=== PATIENT | male | born 1950 | race Caucasian/White ===

== ENCOUNTER 2019-01-07 08:46 | Inpatient (IN) | payer MEDICARE, BC ==
--- NOTE | 2019-01-06 15:45 | Pre-op HX & Phy Repo 2 SIG ---
DATE OF ADMISSION: 01/07/2019 HISTORY OF PRESENT ILLNESS: The patient is a 68-year-old male in overall good health with a malfunctioning Quevedo continent ileostomy with incontinence and difficulty with intubation because of stricture of the stoma opening. The patient has a past history of ulcerative colitis. In 1989, he underwent total colectomy with creation of an ileoanal J-pouch. In 2013, he required conventional ileostomy because of a failed J-pouch. In November 2014, he underwent creation of a Quevedo continent ileostomy as well as resection of his failed J-pouch and abdominal-perineal proctectomy. All these operations were done elsewhere. On 04/12/2018 in [place], the patient underwent surgery to revise the valve and stoma of his Quevedo pouch because of difficulty with intubation, but he was not having any incontinence at that time. However, following this surgery within several weeks, he developed incontinence of stool and gas from the stoma. He has been treated with Cipro and Flagyl for pouchitis, which he has only occasionally, but the incontinence continues. He also notes that his stoma has become so small that he must wear a stent or the opening closes down and he cannot get his 30-Indonesian catheter in to evacuate stool from his pouch. He does not have any difficulty intubating once he negotiates the stomal orifice itself. The patient is scheduled to undergo pouch endoscopy and surgical revision to correct his incontinence and stoma stenosis. 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 PAST MEDICAL HISTORY: MEDICATIONS: None. ALLERGIES: Penicillin. OPERATIONS: In addition to the above, thyroidectomy in 1996. PHYSICAL EXAMINATION: The patient is 5 feet 9 inches and 159 pounds. [place] and will be examined upon arrival and dictated separately. IMPRESSION: 1. 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 2. History of ulcerative colitis. 3. Status post thyroidectomy. 4. Status post multiple abdominal operations. 4.1. Total colectomy with ileoanal J-pouch in 1989. 4.2. Ileostomy in 2013. 4.3. Quevedo continent intestinal reservoir, continent ileostomy, resection of failed J-pouch and abdominal-perineal proctectomy in November 2014. 4.4. Revision of Quevedo continent ileostomy valve, stoma, and access segment in [place] 04/12/2018. PLAN: I have had a full discussion with the patient about his condition. He will undergo insertion of a dual lumen PICC line, pouch endoscopy, bowel prep with intravenous hydration during his bowel prep, and continuous drainage of his Quevedo continent ileostomy pouch. I have had a full discussion with the patient regarding the surgical options including revision of his pouch, creation of a new valve and stoma with preservation of the pouch, but he is not likely to be a candidate for a new pouch as he has already undergone resection of a failed J-pouch. I will have another detailed discussion in person when the patient arrives. I have discussed the risks including bleeding, infection, injury to adjacent structures or organs, recurrent difficulties with the pouch or stoma, deep vein thrombosis despite prophylaxis etc. I will answer all his questions. Cedrick Juarez M.D. DR: LASHANDA JOB#: [id number] CC:
[~2019-01-07] VITALS: Ht 175.3 cm; Wt 71.7 kg
[~2019-01-07 08:46] MED LIST: Heparin1,000 units/500ml Premix(Conc:2 units/ml) ONE; Lidocaine 1% Plain 30 ml INJ ONE
[2019-01-07 09:30] VITALS: BP 136/78
--- NOTE | 2019-01-07 09:30 | NUR ---
NURSE NOTES: Received direct admit. pt a/a/o x4 ambulatory with no signs of distress or other issues at this time. RN will review orders and will carry on as indicated by . kristine light within reach, bed in lowest position. side rales up x2. I will f/u as needed.
[2019-01-07] MEDS ORDERED: Zolpidem 5mg tab ORAL PRN (09:45)
[2019-01-07 11:10] LABS: BASOPHILS % (AUTO) 0.8 % (0.0-2.0); EOSINOPHILS % (AUTO) 2.6 % (0.0-3.0); HEMATOCRIT 44.9 % (42.0-52.0); LYMPHOCYTES % (AUTO) 20.2 % (20.0-45.0); MEAN CORPUSCULAR VOLUME 90 FL (80-99); MONOCYTES % (AUTO) 8.6 % (1.0-10.0); NEUTROPHILS % (AUTO) 67.7 % (45.0-75.0); PLATELET COUNT 212 K/UL (150-450); RED CELL DISTRIBUTION WIDTH 11.2 % (11.6-14.8); WHITE BLOOD COUNT 6.9 K/UL (4.8-10.8)
[2019-01-07 11:32] LABS: ALANINE AMINOTRANSFERASE 24 U/L (12-78); ALBUMIN 3.6 G/DL (3.4-5.0); ALKALINE PHOSPHATASE 101 U/L (46-116); ANION GAP 5 mmol/L (5-15); ASPARTATE AMINO TRANSFERASE 16 U/L (15-37); BILIRUBIN,TOTAL 0.7 MG/DL (0.2-1.0); BLOOD UREA NITROGEN 12 mg/dL (7-18); CARBON DIOXIDE 30 MMOL/L (21-32); CHLORIDE 107 MMOL/L (98-107); POTASSIUM 4.3 MMOL/L (3.5-5.1); SODIUM 142 MMOL/L (136-145)
[2019-01-07 11:39] LABS: CALCIUM 9.6 MG/DL (8.5-10.1); CREATININE 1.1 MG/DL (0.55-1.30)
--- NOTE | 2019-01-07 11:45 | Pre-Procedure Note/Attestation ---
Pre-Procedure Note/Attestation Complete Prior to Procedure Planned Procedure: not applicable Procedure Narrative: Quevedo continent ileostomy pouch endoscopy Indications for Procedure Pre-Operative Diagnosis: malfunctioning Quevedo continent ileostomy with incontinence and stoma stricture Attestation I attest that I discussed the nature of the procedure; its benefits; risks and complications; and alternatives (and the risks and benefits of such alternatives ), prior to the procedure, with the patient (or the patient's legal renewals representative). I attest that, if there was a reasonable possibility of needing a blood transfusion, the patient (or the patient's legal renewals representative) was given the [facility] Services standardized written summary, pursuant to the Mehran Heidi Blood Safety Act ([place] Health and Safety Code # 1645, as amended). I attest that I re-evaluated the patient just prior to the surgery and that there has been no change in the patient's H&P, except as documented below: none Cedrick Juarez MD Jan 07, 2019 11:45
[2019-01-07 12:00] VITALS: BP 135/70
--- NOTE | 2019-01-07 12:00 | NUR ---
NURSE NOTES: pt is back from Endoscopy and PICC line placement. pt was able to tolerated procedure well with no signs of distress. ileo bag was placed with a Trevino cath Fr#[id number]. RN will review orders and carry on as indicated by . I will f/u as needed.
--- NOTE | 2019-01-07 12:11 | Brief Operative Note ---
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
[2019-01-07 12:14] LABS: APPEARANCE,URINE CLEAR; BILIRUBIN, URINE NEGATIVE (NEGATIVE); COLOR,URINE PALE YELLOW; GLUCOSE, URINE (UA) NEGATIVE (NEGATIVE); KETONES,URINE NEGATIVE (NEGATIVE); LEUKOCYTE ESTERASE ,URINE 1+ (NEGATIVE); NITRITE,URINE NEGATIVE (NEGATIVE); PH,URINE 6.5 (4.5-8.0); PROTEIN,URINE NEGATIVE (NEGATIVE); UROBILINOGEN,URINE NORMAL MG/DL (0.0-1.0)
--- NOTE | 2019-01-07 12:24 | Pre-Procedure Note/Attestation ---
Pre-Procedure Note/Attestation Complete Prior to Procedure Planned Procedure: not applicable Procedure Narrative: PICC Indications for Procedure Pre-Operative Diagnosis: needs IV access for TPN Attestation I attest that I discussed the nature of the procedure; its benefits; risks and complications; and alternatives (and the risks and benefits of such alternatives ), prior to the procedure, with the patient (or the patient's legal specialty sales representative). I attest that, if there was a reasonable possibility of needing a blood transfusion, the patient (or the patient's legal specialty sales representative) was given the [facility] Services standardized written summary, pursuant to the Mehran Aubrey Blood Safety Act ([place] Health and Safety Code # 1645, as amended). I attest that I re-evaluated the patient just prior to the surgery and that there has been no change in the patient's H&P, except as documented below: Moy Velez MD Jan 07, 2019 12:24
--- NOTE | 2019-01-07 12:24 | Brief Operative Note ---
Immediate Post Operative Note Operative Note Pre-op Diagnosis: needs IV access for TPN Procedure: PICC Post-op Diagnosis: same as pre-op Surgeon: Iris Watt Specimen: none Complications: none Fluids: none Implant(s) used?: No Moy Watt MD Jan 07, 2019 12:24
--- NOTE | 2019-01-07 12:31 | Diagnostic Imaging Report ---
Indications: Needs long-term IV access Technique: Ultrasound confirms patent compressible left basilic vein. Total sterile technique, including sterile probe cover and sterile gel, hat, mask, sterile gown, large sterile drape, and preparation with 2% chlorhexidine utilized. Local anesthesia with 1% lidocaine. Under real-time ultrasound guidance, puncture basilic vein using 21-gauge needle, documented and archived, passage 0.018 guidewire under direct fluoroscopy, which was used to determine appropriate catheter length, exchange for 4 [place] Island[place] peel-away sheath. 4 [place] Island[place] Bard dual-lumen power PICC cut to 42 cm. It was inserted through the peel-away sheath. Peel-away sheath and guidewire removed. Catheter fixed to the skin. Both catheter ports aspirated and flushed. Patient tolerated procedure well, without immediate complication. Digital radiograph documents satisfactory catheter tip position, at the cavoatrial junction. Total fluoroscopy time 12.5 seconds. Total dose area product 0.81233 mGym2 Total number of images: 1 Impression: Successful placement of left arm PICC under sonographic and fluoroscopic guidance, as described above.
[2019-01-07] MEDS: Neomycin Sulfate 500mg Tab ORAL SCH ×3 (12:37→21:28)
[2019-01-07] MEDS ORDERED: D5 1/2NS w/KCl 20mEq 1,000 ML IV SCH ×2 (13:00→18:00)
[2019-01-07] MEDS: D5 1/2NS w/KCl 20mEq 1,000 ML IV SCH ×2 (13:45→23:33)
--- NOTE | 2019-01-07 13:45 | Pre-op HX & Phy Repo 2 SIG ---
DATE OF ADMISSION: 01/07/2019 The [place] now [place]. Please see previously dictated history. PHYSICAL EXAMINATION: GENERAL: He is well-developed, well-nourished, 5 foot 9 inches, approximately 160 pounds. VITAL SIGNS: Within normal limits. HEENT: Within normal limits. LUNGS: Clear. HEART: Regular rhythm. BREASTS: Without masses. ABDOMEN: Soft and flat. There was a long midline scar from xiphoid to pubis. There was a stoma of the Quevedo continent ileostomy low in the right lower quadrant with stenosis and a skin-lined tract leading to mucosa approximately 2 cm below the skin level. GENITALIA:Testes and penis within normal limits. RECTAL: Status post proctectomy. EXTREMITIES: Without edema. Pulses 3+ femoral to pedal bilaterally. NEUROLOGIC: Physiologic. IMPRESSION: 1. 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 2. History of ulcerative colitis. 3. Status post thyroidectomy. 4. Status post multiple abdominal operations. 4.1. Total colectomy with ileoanal J-pouch in 1989. 4.2. Diverting ileostomy in 2013. 4.3. Resection of failed J-pouch and abdominal-perineal proctectomy and creation of Quevedo continent ileostomy, in November 2014. 4.4. Revision of Quevedo continent ileostomy valve, stoma, and access segment because of difficulty with intubation April 12, 2018. (All these operations were done elsewhere.) PLAN: I have had a full discussion with the patient regarding his condition and the need for surgical correction likely creation of a new valve and stoma with preservation of the existing pouch with possible relocation of the stoma to the left lower quadrant. All questions have been answered. He understands and agrees to proceed. Cedrick Juarez M.D. DR: JULIO/JOSE JOB#: [id number] CC: JUANITA
--- NOTE | 2019-01-07 14:32 | NUR ---
RADIOLOGY DEPT., CHEST X-RAY DONE.-P.DYE
--- NOTE | 2019-01-07 14:36 | General Progress Note ---
Progress Note Progress Note H&P dictated. 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 Plan: Revision of Quevedo pouch in AM Cderick Juarez MD Jan 07, 2019 14:36
--- NOTE | 2019-01-07 15:31 | Diagnostic Imaging Report ---
Indication: Cough Technique: One view of the chest Comparison: none Findings: Left arm PICC has its tip in the mid superior vena cava. Lungs and pleural spaces are clear. The heart size is normal Impression: No acute process
--- NOTE | 2019-01-07 15:38 | Anethesia Preoperative Eval ---
Anesthesia Pre-op PMH/ROS General Date of Evaluation: Jan 07, 2019 Time of Evaluation: 15:32 Anesthesiologist: Codie ASA Score: ASA 2 Mallampati Score Class I : Soft palate, uvula, fauces, pillars visible Class II: Soft palate, uvula, fauces visible Class III: Soft palate, base of uvula visible Class IV: Only hard plate visible Mallampati Classification: Class II Surgeon: Larry Diagnosis: Malfunctioning continent pouch Surgical Procedure: Ex laparotomy revision of continent pouch Anesthesia History: none Family History: no anesthesia problems Allergies: Coded Allergies: PENICILLINS (Verified Allergy, Intermediate, 01/07/19) Medications: see eMAR Patient NPO?: Yes NPO Date: Jan 08, 2019 Past Medical History Cardiovascular: Denies: HTN, CAD, [place], valve dz, arrhythmia, other Pulmonary: Denies: asthma, COPD, PRIMO, other Gastrointestinal/Genitourinary: Reports: GERD, other - h/o UC s/p total colectomy; Denies: CRI, ESRD Neurologic/Psychiatric: Reports: depression/anxiety; Denies: dementia, CVA, TIA, other Endocrine: Reports: hypothyroidism - s/p thyroid ectomy CA; Denies: DM, steroids, other HEENT: Denies: cataract (L), cataract (R), glaucoma, KALISPEL (L), KALISPEL (R), other Hematology/Immune: Reports: DVT - h/o PE postoperatively Musculoskeletal/Integumentary: Denies: OA, RA, DJD, DDD, edema, other PMH Narrative: as above PSxH Narrative: Multiple abdominal Sx see H&P Anesthesia Pre-op Phys. Exam Physician Exam Last Vital Signs Date Time Temp Pulse Resp B/P (MAP) Pulse Ox O2 Delivery O2 Flow Rate FiO2 01/07/19 12:00 98.3 75 18 135/70 (91) 98 01/07/19 10:18 Room Air Constitutional: NAD Neurologic: CN 2-12 intact Cardiovascular: RRR, no M/R/G Respiratory: CTA Gastrointestinal: S/NT/ND Airway Exam Mallampati Score: Class II MO: full Neck: flexible ROM: full Teeth: intact Dentures: no upper, no lower Anesthesia Pre-op A/P Labs Hematology Test 01/07/19 11:00 White Blood Count 6.9 K/UL (4.8-10.8) Red Blood Count 5.00 M/UL (4.70-6.10) Hemoglobin 15.0 G/DL (14.2-18.0) Hematocrit 44.9 % (42.0-52.0) Mean Corpuscular Volume 90 FL (80-99) Mean Corpuscular Hemoglobin 29.9 PG (27.0-31.0) Mean Corpuscular Hemoglobin Concent 33.3 G/DL (32.0-36.0) Red Cell Distribution Width 11.2 % (11.6-14.8) L Platelet Count 212 K/UL (150-450) Mean Platelet Volume 7.0 FL (6.5-10.1) Neutrophils (%) (Auto) 67.7 % (45.0-75.0) Lymphocytes (%) (Auto) 20.2 % (20.0-45.0) Monocytes (%) (Auto) 8.6 % (1.0-10.0) Eosinophils (%) (Auto) 2.6 % (0.0-3.0) Basophils (%) (Auto) 0.8 % (0.0-2.0) Coagulation Test 01/07/19 11:00 Prothrombin Time 10.2 SEC (9.30-11.50) Prothromb Time International Ratio 1.0 (0.9-1.1) Activated Partial Thromboplast Time 24 SEC (23-33) Chemistry Test 01/07/19 11:00 Sodium Level 142 MMOL/L (136-145) Potassium Level 4.3 MMOL/L (3.5-5.1) Chloride Level 107 MMOL/L (98-107) Carbon Dioxide Level 30 MMOL/L (21-32) Anion Gap 5 mmol/L (5-15) Blood Urea Nitrogen 12 mg/dL (7-18) Creatinine 1.1 MG/DL (0.55-1.30) Estimat Glomerular Filtration Rate > 60 mL/min (>60) Glucose Level 95 MG/DL (74-106) Calcium Level 9.6 MG/DL (8.5-10.1) Total Bilirubin 0.7 MG/DL (0.2-1.0) Aspartate Amino Transf (AST/SGOT) 16 U/L (15-37) Alanine Aminotransferase (ALT/SGPT) 24 U/L (12-78) Alkaline Phosphatase 101 U/L (46-116) Total Protein 7.3 G/DL (6.4-8.2) Albumin 3.6 G/DL (3.4-5.0) Globulin 3.7 g/dL Albumin/Globulin Ratio 1.0 (1.0-2.7) Risk Assessment & Plan Assessment: ASA 2 Plan: GA with ETT Status Change Before Surgery: No Pre-Antibiotics Drug: as scheduled Julius Mackay MD Jan 07, 2019 15:38
[2019-01-07 16:00] VITALS: BP 115/72
--- NOTE | 2019-01-07 18:00 | Procedure Note ---
DATE OF PROCEDURE: 01/07/2019 ENDOSCOPY PROCEDURE REPORT ENDOSCOPIST: Cedrick Juarez M.D. ANESTHESIA: None. SEDATION: None. PRE-ENDOSCOPY DIAGNOSES: 1. 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 2. History of ulcerative colitis. 3. Status post multiple abdominal operations. 3.1. Total colectomy with ileoanal J-pouch in 1989. 3.2. Ileostomy in 2013. 3.3. Quevedo continent ileostomy and resection of failed J-pouch and abdominal-perineal proctectomy November 2014. 3.4. Revision of Quevedo continent ileostomy valve stoma and access segment April 12, 2018 because of difficulty with intubation (all these [place] POST-ENDOSCOPY DIAGNOSES: 1. 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 2. History of ulcerative colitis. 3. Status post multiple abdominal operations. 3.1. Total colectomy with ileoanal J-pouch in 1989. 3.2. Ileostomy in 2013. 3.3. Quevedo continent ileostomy and resection of failed J-pouch and abdominal-perineal proctectomy November 2014. 3.4. Revision of Quevedo continent ileostomy valve stoma and access segment April 12, 2018 because of difficulty with intubation (all these operations were done [place]). ENDOSCOPY PERFORMED: Quevedo continent ileostomy pouch endoscopy. 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 DESCRIPTION OF PROCEDURE: The patient was positioned supine in the GI lab without any anesthesia or sedation given or required. The stoma is low in the right lower quadrant and there was a skin line tract down to the stoma orifice in the subcutaneous tissues approximately 2 cm below the skin orifice. A GIF-P140 endoscope was readily inserted and negotiated under vision through an angulated access segment into the pouch. The distance to the tip of the valve was approximately 12 cm, which in this patient should be 8 cm. The pouch is distensible and overall majority of the pouch looks very healthy. Retroflexed views revealed a valve that is partially slipped with some inflammatory reaction adjacent to the base of the valve on one side. Withdrawal views confirmed the above findings. After removing the endoscope, I was able to manipulate a 28-Portuguese Trevino catheter through the stoma into the pouch to evacuate the pouch and secured it with tape and gauze dressing and connected to a gravity drainage bag. The patient will be prepared for surgical revision of his malfunctioning Quevedo continent ileostomy. The patient tolerated the endoscopy well. Cedrick Juarez M.D. DR: YESY JOB#: [id number] CC: JUANITA
--- NOTE | 2019-01-07 19:26 | NUR ---
HAND-OFF: Report given to Jadiel MELO, pt in stable condition. total I&O's Ileostomy: 1075-40= 1035ml total oral intake: 1500ml Lunch: 100%, diner:100% = Clear liquid Diet.
[2019-01-07 20:00] VITALS: BP 116/78
--- NOTE | 2019-01-07 22:55 | NUR ---
NURSE NOTES: Received report from KAMERON Burgos. Patient has BASILIO PICC line running fluids asymptomatic and intact. Dressing is c/d/i. NPO at midnight sign on door. No c/o of SOB on room air. No c/o of pain or discomfort at this time. Ileostomy draining to gravity to bag brown-green liquid. Emptied bag 600cc of fluid. VSS and comfortable. Will continue to monitor.
[2019-01-08] VITALS (16 sets, daily range): BP systolic 96–123; BP diastolic 64–81
[2019-01-08 05:18] LABS: EOSINOPHILS % (AUTO) 2.9 % (0.0-3.0); HEMATOCRIT 40.9 % (42.0-52.0); HEMOGLOBIN 14.1 G/DL (14.2-18.0); LYMPHOCYTES % (AUTO) 13.8 % (20.0-45.0); MEAN CORPUSCULAR VOLUME 89 FL (80-99); MONOCYTES % (AUTO) 8.4 % (1.0-10.0); PLATELET COUNT 199 K/UL (150-450); RED BLOOD COUNT 4.59 M/UL (4.70-6.10); RED CELL DISTRIBUTION WIDTH 11.2 % (11.6-14.8); WHITE BLOOD COUNT 6.4 K/UL (4.8-10.8)
[2019-01-08] MEDS ORDERED: Heparin 5000 units/ml inj SUBQ SCH (05:30)
[2019-01-08 05:50] LABS: ALANINE AMINOTRANSFERASE 25 U/L (12-78); ALBUMIN 3.3 G/DL (3.4-5.0); ALKALINE PHOSPHATASE 88 U/L (46-116); ANION GAP 3 mmol/L (5-15); ASPARTATE AMINO TRANSFERASE 19 U/L (15-37); BILIRUBIN,TOTAL 0.7 MG/DL (0.2-1.0); BLOOD UREA NITROGEN 8 mg/dL (7-18); CARBON DIOXIDE 29 MMOL/L (21-32); CHLORIDE 108 MMOL/L (98-107); POTASSIUM 4.2 MMOL/L (3.5-5.1); SODIUM 140 MMOL/L (136-145)
[2019-01-08] MEDS ORDERED: NS Irrig 1000ml ONE (07:00)
[2019-01-08] MEDS ORDERED: Sterile Water Irrig 1000ml IRRIG ONE (07:00)
[2019-01-08] MEDS ORDERED: Lidocaine 1% MPF 10mg/ml 5ml ONE (07:14)
[2019-01-08] MEDS ORDERED: Propofol 200mg/20ml IV ONE (07:14)
[2019-01-08] MEDS ORDERED: fentaNYL 100 mcg/2 mL IV ONE (07:17)
[2019-01-08] MEDS ORDERED: Midazolam 2mg/2ml Inj ONE (07:17)
--- NOTE | 2019-01-08 07:17 | Pre-Procedure Note/Attestation ---
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 I attest that, if there was a reasonable possibility of needing a blood transfusion, the patient (or the patient's legal business representative) was given the [facility] Services standardized written summary, pursuant to the Mehran [place] Blood Safety Act ([place] Health and Safety Code # 1645, as amended). I attest that I re-evaluated the patient just prior to the surgery and that there has been no change in the patient's H&P, except as documented below: none Cedrick Juarez MD Jan 08, 2019 07:17
[2019-01-08] MEDS ORDERED: Bacitracin 50000 Units Vial ONE (07:21)
[2019-01-08] MEDS ORDERED: Succinylcholine 20mg/ml 10ml vial ONE (07:21)
[2019-01-08] MEDS ORDERED: Rocuronium Bromide 50mg/5ml Inj IV ONE (07:21)
--- NOTE | 2019-01-08 07:42 | NUR ---
HAND-OFF: Report given to OR nurse and left floor with transport to OR for procedure at 0715am. Patient running fluids and antibiotics to BASILIO PICC line. Patient in stable condition. Handoff report given to AM floor 3E nurse KAMERON Thacker.
--- NOTE | 2019-01-08 07:45 | NUR ---
NURSE NOTES: Pt off unit in OR. Will continue to monitor.
[2019-01-08] MEDS ORDERED: Sodium Chloride 10ml vial INJ ONE ×2 (08:24→08:36)
[2019-01-08] MEDS ORDERED: ePHEDrine 50mg/ml Inj ONE (08:24)
[2019-01-08] MEDS ORDERED: Acetaminophen (Non formulary) 100 ML IV SCH (08:30)
[2019-01-08] MEDS ORDERED: Morphine Sulfate 10mg/ml Inj ONE (08:36)
[2019-01-08] MEDS ORDERED: Glycopyrrolate 0.2mg/ml 1ml Vial ONE (10:17)
[2019-01-08] MEDS ORDERED: Ketorolac 30mg Inj ONE (10:17)
[2019-01-08] MEDS ORDERED: Neostigmine 1mg/ml 10ml Inj ONE (10:17)
[2019-01-08] MEDS ORDERED: LR 1000ml 1,000 ML IVLG SCH (10:37)
[2019-01-08] MEDS ORDERED: Hydromorphone 0.5mg/0.5ml inj IVP PRN (10:45)
[2019-01-08] MEDS ORDERED: DiphenhydrAMINE 50mg/ml Inj IVP PRN ×2 (10:45→11:30)
[2019-01-08] MEDS ORDERED: Ketorolac 30mg Inj IV PRN (10:45)
[2019-01-08] MEDS ORDERED: Meperidine 50mg/ml Inj(FOR RIGORS ONLY) IV PRN (10:45)
[2019-01-08] MEDS ORDERED: LORazepam 1mg tab SL PRN ×2 (11:00)
--- NOTE | 2019-01-08 11:10 | Brief Operative Note ---
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
--- NOTE | 2019-01-08 11:12 | Immediate Post-Op Evaluation ---
Immediate Post-Op Evalulation Immediate Post-Op Evalulation Procedure: Exploratory laparotomy,lysis of adhesions, revision of continent pouch Date of Evaluation: Jan 08, 2019 Time of Evaluation: 11:11 IV Fluids: 1600 Blood Products: Albumin 250 Estimated Blood Loss: 100 Urinary Output: 150 Blood Pressure Systolic: 118 Blood Pressure Diastolic: 76 Pulse Rate: 92 Respiratory Rate: 20 O2 Sat by Pulse Oximetry: 99 Temperature (Fahrenheit): 98.2 Pain Score (1-10): 1 Nausea: No Vomiting: No Complications none Patient Status: reacts, patent, extubated, none Hydration Status: adequate Julius Mackay MD Jan 08, 2019 11:12
[2019-01-08] MEDS ORDERED: PCA Education Pamphlet MISC SCH (11:30)
[2019-01-08] MEDS ORDERED: Naloxone 0.4mg/ml Inj IVP PRN (11:30)
[2019-01-08] MEDS ORDERED: Rate Change PCA 1 Each MISC PRN (11:30)
[2019-01-08] MEDS: PCA Morphine 1mg/ml 30 ML IV PRN ×2 (11:35→20:31)
--- NOTE | 2019-01-08 13:00 | NUR ---
NURSE NOTES: Pt came up to unit from PACU via hospital bed in stable condition. BASILIO PICC line intact/asymptomatic/patent w/ SURGICAL INSTRUMENT MAKER Morphine infusing. Pt A&Ox4; on 2L NC; and in no apparent distress. Surgical dressing C/D/I; ileo & F/C patent/draining well. Reviewed SURGICAL INSTRUMENT MAKER purpose and use w/pt; pt verbalized understanding. Will continue to monitor.
[2019-01-08] MEDS: D5 1/4NS w/KCl 20mEq 1,000 ML IV SCH ×2 (13:02→20:27)
[2019-01-08] MEDS: D5 1/2NS w/KCl 20mEq 1,000 ML IV SCH (16:25)
--- NOTE | 2019-01-08 16:30 | Operative Note - Dictated ---
DATE OF OPERATION: 01/08/2019 SURGEON: Cedrick Juarez M.D. PHOTOENGRAVING ETCHER APPRENTICE: Sriram Lee M.D. ANESTHESIOLOGIST: Julius Mackay M.D. TYPE OF ANESTHESIA: General endotracheal. PREOPERATIVE DIAGNOSES: 1. 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 2. History of ulcerative colitis. 3. Status post multiple abdominal operations. 3.1. Total colectomy with ileoanal J-pouch in 1989. 3.2. Diverting ileostomy 2013. 3.3. Quevedo continent intestinal reservoir continent ileostomy with resection of failed J-pouch and abdomino-perineal proctectomy November 2014. 3.4. Revision of Quevedo continent ileostomy valve stoma and access segment performed in [place] April 12, 2018. POSTOPERATIVE DIAGNOSES: 1. 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 2. History of ulcerative colitis. 3. Status post multiple abdominal operations. 3.1. Total colectomy with ileoanal J-pouch in 1989. 3.2. Diverting ileostomy 2013. 3.3. Quevedo continent intestinal reservoir continent ileostomy with resection of failed J-pouch and abdomino-perineal proctectomy November 2014. 3.4. Revision of Quevedo continent ileostomy valve stoma and access segment performed in [place] April 12, 2018. OPERATION PERFORMED: Laparotomy with revision of Quevedo continent ileostomy pouch valve and revision of stoma and access segment. DESCRIPTION OF PROCEDURE: The patient was taken to the operating room and under general anesthesia with sequential compression device stockings and Trevino catheter in place, he was prepped and draped in usual fashion. Previous midline incision was reopened from the umbilicus to the pubis. There were diffuse adhesions to the anterior abdominal wall and throughout the abdomen and into the pelvis. A 28-Comoran Trevino was placed through the stenotic stoma into the pouch. The actual mucosa of the stoma was approximately 2 cm below the skin with epithelial epidermis lined the tract. With the catheter in the pouch, adhesions to the bladder were taken down and the pouch elevated out of the pelvis protecting the bladder and ureters. The pouch was very large. The afferent bowel could not be readily identified. Dissection continued circumferentially around the access segment. The stoma was circumscribed with elliptical transversely oriented incision and the access segment and stoma brought through into the abdomen. Two entries into the collar segment were made both of which were closed in 2 layers with 2-0 and 3-0 Vicryl. Material was in the distended collar, looked cloudy and not enteric. A pouch enterotomy was created along the previous anterior pouch suture line. The nipple valve was readily reformed measuring at least 6 centimeters well formed circumferentially. A row of claudia using the linear stapler 60 green cartridge was placed away from the mesentery. The catheter went in and out readily without limitation. There was marked inflammation adjacent to the valve and multiple what appeared to be Ethibond sutures all of which were removed. The orifice into the collar segment was stenotic it was dilated with a 28-Comoran Trevino catheter and collar decompressed. Dissection of the access segment continued freeing it of scar tissue to create enough length. The scarred skin line tract was excised and given as specimen. Now, the new access segment could reach the skin without tension and it was well perfused. The pouch enterotomy was closed with continuous locking 2-0 chromic followed by imbricating 3-0 silk sutures. The access segment was brought through the abdominal wall. There was no redundancy to excise. The stoma was primarily matured with continuous 2-0 chromic locking sutures starting at 3 and 9 o'clock positions. A very satisfactory stoma was obtained. A 28-Comoran Trevino catheter was placed into the stoma and well into the pouch and sutured to the skin with two sutures of 2-0 silk. It was flushed and connected to a gravity drainage bag. There was too much scarring in the upper abdomen to try and do a catheter gastrostomy. I could not do a pressure test of the pouch because the afferent bowel was encased with scar, but there was no obstruction. Through a separate stab wound in the left lower quadrant, a quarter-inch [place] drain was placed into the pelvis and up near the access segment and sutured to the skin with a 3-0 silk suture. The midline incision was carefully inspected. The abdomen and pelvis carefully inspected and irrigated and hemostasis secured with cautery. The midline incision was closed with continuous 0 looped PDS followed by additional antibiotic irrigation and the skin closed with claudia. Dry sterile dressings applied. Final sponge and needle counts were correct. The patient tolerated the procedure well, left the operating room in stable condition. Cedrick Juarez M.D. DR: Jeff JOB#: [id number] CC:
[2019-01-08] MEDS: PCA shift volume MISC SCH (19:18)
--- NOTE | 2019-01-08 19:25 | NUR ---
HAND-OFF: Report given to KAMERON Hogan.
--- NOTE | 2019-01-08 19:30 | NUR ---
NURSE NOTES: Received report from KAMERON Thacker. Patient is new post op patient for BCIR revision. Ileostomy stoma is bright red and asymptomatic. Dressing is clean, dry and intact. Ileostomy is draining a small amount of serosanguineous fluid. Trevino is draining clear yellow urine to drainage bag. Left upper arm PICC line is asymptomatic. VSS no c/o SOB on 2L NS. BUSINESS SERVICES CLERK pump with morphine set up at bedside. Call light within reach.
[2019-01-08] MEDS: Dyna-Hex 2% Top Sol 2oz TOPIC SCH (20:26)
[2019-01-09] VITALS: BP 110/68
[2019-01-09 04:00] VITALS: BP 114/69
[2019-01-09] MEDS: D5 1/4NS w/KCl 20mEq 1,000 ML IV SCH ×3 (04:50→20:09)
[2019-01-09 06:33] LABS: BASOPHILS % (AUTO) 0.4 % (0.0-2.0); EOSINOPHILS % (AUTO) 2.6 % (0.0-3.0); HEMOGLOBIN 13.4 G/DL (14.2-18.0); LYMPHOCYTES % (AUTO) 6.6 % (20.0-45.0); MEAN CORPUSCULAR VOLUME 91 FL (80-99); MONOCYTES % (AUTO) 7.9 % (1.0-10.0); NEUTROPHILS % (AUTO) 82.5 % (45.0-75.0); PLATELET COUNT 165 K/UL (150-450); RED BLOOD COUNT 4.41 M/UL (4.70-6.10); RED CELL DISTRIBUTION WIDTH 11.1 % (11.6-14.8); WHITE BLOOD COUNT 9.3 K/UL (4.8-10.8)
[2019-01-09] MEDS: PCA shift volume MISC SCH ×2 (07:11→19:18)
--- NOTE | 2019-01-09 07:12 | NUR ---
HAND-OFF: Report given to KAMERON Thacker. Patient in stable condition.
[2019-01-09 07:13] LABS: ALANINE AMINOTRANSFERASE 18 U/L (12-78); ALBUMIN 2.8 G/DL (3.4-5.0); ALBUMIN/GLOBULIN RATIO 0.9 (1.0-2.7); ALKALINE PHOSPHATASE 74 U/L (46-116); ANION GAP 7 mmol/L (5-15); ASPARTATE AMINO TRANSFERASE 13 U/L (15-37); BILIRUBIN,TOTAL 0.8 MG/DL (0.2-1.0); BLOOD UREA NITROGEN 8 mg/dL (7-18); CALCIUM 8.7 MG/DL (8.5-10.1); CARBON DIOXIDE 27 MMOL/L (21-32); CHLORIDE 106 MMOL/L (98-107); CREATININE 1.1 MG/DL (0.55-1.30); POTASSIUM 4.5 MMOL/L (3.5-5.1); SODIUM 140 MMOL/L (136-145)
--- NOTE | 2019-01-09 07:30 | NUR ---
NURSE NOTES: Pt lying in bed w/bed in lowest position and call light/DIANETICIST button within reach. Pt A&Ox4, VSS, and in no apparent distress at this time. BASILIO PICC line intact/asymptomatic w/IVF running; surgical dressing C/D/I; and F/C & ileo patent/draining. Pt has no complaints or concerns at this time. Will continue to monitor.
[2019-01-09 08:00] VITALS: BP 113/70
--- NOTE | 2019-01-09 08:24 | 48 Hour Post Anesthesia Eval ---
Post Anesthesia Evaluation Procedure: Exploratory laparotomy,lysis of adhesions, revision of continent pouch Date of Evaluation: Jan 09, 2019 Time of Evaluation: 08:23 Blood Pressure Systolic: 118 0: 72 Pulse Rate: 78 Respiratory Rate: 20 Temperature (Fahrenheit): 97.8 O2 Sat by Pulse Oximetry: 98 Airway: patent Nausea: No Vomiting: No Pain Intensity: 3 Hydration Status: adequate Cardiopulmonary Status: stable Mental Status/LOC: patient returned to baseline Follow-up Care/Observations: n/a Post-Anesthesia Complications: none Follow-up care needed: N/A Julius Mackay MD Jan 09, 2019 08:24
[2019-01-09] MEDS: PCA Morphine 1mg/ml 30 ML IV PRN (08:26)
[2019-01-09] MEDS ORDERED: Rate Change PCA 1 Each MISC PRN (08:45)
--- NOTE | 2019-01-09 08:45 | General Progress Note ---
Progress Note Progress Note AVSS Comfortable with MS OPERATIONS WELDER. Chest clear Cor reg rhythm Abdomen soft, mild distention, incision clean, stoma pink, john with serosang mod amount drainage overnight 12 hours: urine 750 BCIR ileo small amount serosang WBC 9300 Hgb 13.4 BUN 8 Cr 1.1 Albumin 2.8 (low pre-op 3.3) Imp: Ileus Pre-admission malnutrition Plan: npo x po meds and occ. ice chips TPN Ambulate with assistance BID continue Trevino - extensive adhesions of Quevedo pouch to bladder Cedrick Juarez MD Jan 09, 2019 08:45
[2019-01-09] MEDS ORDERED: Naloxone 0.4mg/ml Inj IVP PRN (09:00)
[2019-01-09] MEDS ORDERED: PCA Morphine 1mg/ml 30 ML IV PRN (09:00)
[2019-01-09] MEDS ORDERED: DiphenhydrAMINE 50mg/ml Inj IVP PRN (09:00)
--- NOTE | 2019-01-09 09:25 | NUR ---
RD ASSESSMENT & RECOMMENDATIONS SEE CARE ACTIVITY FOR COMPLETE ASSESSMENT DAILY ESTIMATED NEEDS: Needs based on Surgery/ 72.5kg 25-30 kcals/kg 4326-2567 total kcals 1-2 g protein/kg 72-145 g total protein 25-30 mL/kg 9071-2265 total fluid mLs NUTRITION DIAGNOSIS: Altered GI function R/T h/o UC, admitted w/ malfunctioning BCIR as evidenced by s/p laparotomy with revision of Quevedo continent ileostomy pouch valve and revision of stoma and access segment, NPO, to start TPN. CURRENT DIET:NPO PO DIET RECOMMENDATIONS: Diet per MD PARENTERAL NUTRITION RECOMMENDATIONS: D/AA Rate: 74 IL Rate: 9 Total Rate: 83 Volume: 1992 % Dextrose: 18 % AA: 5.3 Energy (kcals/kg): 1895 Protein (g/kg protein): 94 Nonprotein KCALS: 1519 GIR (mg CHO/kg/min): 3.05 % Fat KCALS: 23 NCP: N Ratio: 101 TPN Comment: * D18% AA 5.3% @ 74ml/hr + IL20% @ 9ml/hr -> total of 83ml/hr, all 3:1 * Start rate per MD * TPN will provide 100% est kcal/prot needs (26kcal/1.3g prot) ADDITIONAL RECOMMENDATIONS: * Standing weight for accurate CBW * Monitor lytes, BGs, and LFTs closely on TPN * Diet per
--- NOTE | 2019-01-09 10:00 | NUR ---
NURSE NOTES: Helped patient ambulate around unit twice and helped wash up; linens changed by DAY CARE TEACHER. Pt tolerated walk well. Will continue to monitor.
[2019-01-09 11:59] VITALS: BP 107/69
[2019-01-09 16:00] VITALS: BP 109/71
[2019-01-09] MEDS ORDERED: NS 55ml IV ONE (16:54)
[2019-01-09] MEDS ORDERED: NS Irrig 1000ml ONE (16:54)
[2019-01-09] MEDS ORDERED: Tubing IV Secondary IV ONE (16:54)
[2019-01-09] MEDS ORDERED: D5 1/2NS 1000ml IV ONE (16:54)
--- NOTE | 2019-01-09 18:15 | NUR ---
NURSE NOTES: Ambulated w/pt three times around unit w/o incident. Pt feeling a little nauseated; administered Zofran 4 mg IVP. Will continue to monitor.
[2019-01-09] MEDS ORDERED: LOTEMAX SM5 GM OP (18:42)
[2019-01-09] MEDS ORDERED: COMBIGAN EYE DRO5 ML OP (18:42)
--- NOTE | 2019-01-09 19:29 | NUR ---
HAND-OFF: Report given to KAMERON Farias.
--- NOTE | 2019-01-09 19:30 | NUR ---
NURSE NOTES: Received report & pt from KAMERON Thacker. Pt lying in bed, a&ox4, in room air. No s/s of acute distress & no c/o pain at this time. Ileo & izquierdo cath intact & draining to gravity. Surgical dressing C/D/I. PICC line intact with IVF running as ordered. CLIENT SUPPORT ANALYST setting checked. Bed in lowest position, call & CLIENT SUPPORT ANALYST pump within reach. Will continue to monitor.
[2019-01-09 20:00] VITALS: BP 112/65
[2019-01-09] MEDS ORDERED: Dextrose 10% 1,000 ML IV PRN (20:00)
[2019-01-09] MEDS: TPN IV SCH (20:07)
[2019-01-09] MEDS: FAT EMULSION 20% IV SCH (20:07)
[2019-01-09] MEDS: Dyna-Hex 2% Top Sol 2oz TOPIC SCH (20:09)
[2019-01-09] MEDS ORDERED: [UNRECOGNIZED DRUG - OTHER] OPHTHALM SCH ×2 (21:00)
[2019-01-09] MEDS ORDERED: Fat Emulsion Iv 20% 250 ML IV SCH (21:00)
[2019-01-09] MEDS: COMBIGAN OPHTHALM SCH (21:30)
[2019-01-10] VITALS (8 sets, daily range): BP systolic 109–122; BP diastolic 64–77
[2019-01-10] MEDS: NovoLOG Insulin Flexpen SUBQ SCH ×4 (00:02→18:22)
[2019-01-10 05:33] LABS: BASOPHILS % (AUTO) 0.5 % (0.0-2.0); HEMATOCRIT 35.9 % (42.0-52.0); HEMOGLOBIN 12.1 G/DL (14.2-18.0); LYMPHOCYTES % (AUTO) 6.4 % (20.0-45.0); MEAN CORPUSCULAR VOLUME 90 FL (80-99); MONOCYTES % (AUTO) 8.4 % (1.0-10.0); NEUTROPHILS % (AUTO) 81.7 % (45.0-75.0); PLATELET COUNT 150 K/UL (150-450); RED CELL DISTRIBUTION WIDTH 11.1 % (11.6-14.8); WHITE BLOOD COUNT 10.3 K/UL (4.8-10.8)
[2019-01-10 05:52] LABS: ALANINE AMINOTRANSFERASE 13 U/L (12-78); ALBUMIN 2.3 G/DL (3.4-5.0); ALBUMIN/GLOBULIN RATIO 0.7 (1.0-2.7); ALKALINE PHOSPHATASE 68 U/L (46-116); ANION GAP 4 mmol/L (5-15); ASPARTATE AMINO TRANSFERASE 8 U/L (15-37); BILIRUBIN,TOTAL 0.5 MG/DL (0.2-1.0); BLOOD UREA NITROGEN 7 mg/dL (7-18); CALCIUM 8.5 MG/DL (8.5-10.1); CARBON DIOXIDE 26 MMOL/L (21-32); CHLORIDE 108 MMOL/L (98-107); CREATININE 1.1 MG/DL (0.55-1.30); PHOSPHORUS 1.6 MG/DL (2.5-4.9); POTASSIUM 4.5 MMOL/L (3.5-5.1); SODIUM 138 MMOL/L (136-145)
[2019-01-10] MEDS: PCA shift volume MISC SCH ×2 (07:00→19:00)
--- NOTE | 2019-01-10 07:18 | NUR ---
NURSE NOTES: Called & left msg to Dr. Juarez re: pt's Mg 1.5 & Phosphorus 1.6; Will endorse to AM shift.
--- NOTE | 2019-01-10 07:30 | NUR ---
HAND-OFF: Report given to KAMERON Cordoba. Pt in stable condition. Endorsed to AM shift re: Mg & Phosphorus level.
--- NOTE | 2019-01-10 07:45 | NUR ---
NURSE NOTES: Received report from Dinora MELO. Patient is awake and oriented, no acute distress noted, etCO2 monitoring in place per SUPERVISOR TWISTING DEPARTMENT protocol. SUPERVISOR TWISTING DEPARTMENT settings checked and verified against order. Ileo and izquierdo to gravity drainage. IVF and TPN running per order. Abdominal dressing clean, dry. Patient updated on plan of care for the day. Side rails upx2, bed low and locked, call light in reach. Will continue to monitor.
[2019-01-10] MEDS: Magnesium Sulfate 1gm/100ml IVPB SCH ×4 (08:24→11:35)
[2019-01-10] MEDS: [UNRECOGNIZED DRUG - OTHER] OPHTHALM SCH (09:00)
[2019-01-10] MEDS ORDERED: Rate Change PCA 1 Each MISC PRN (10:45)
--- NOTE | 2019-01-10 10:53 | General Progress Note ---
Progress Note Progress Note AVSS Ambulated in hallways Abdomen soft, mildly distended, incision clean, stoma pink. [place] - scant serosang Urine 2875 BCIR ileo neg but now with enteric fluid in tubing WBC 10,300 Hgb 12.1 BUN 7 Cr 1.1 Phos 1.6 Mg 1.5 Albumin 2.3 Imp. Ileus Plan: continue npo, TPN, Trevino Mg and P infusions d/c continuous infusion of STORE GROCERY MERCHANDISER Cedrick Juarez MD Jan 10, 2019 10:52
[2019-01-10] MEDS ORDERED: Naloxone 0.4mg/ml Inj IVP PRN (11:00)
[2019-01-10] MEDS ORDERED: DiphenhydrAMINE 50mg/ml Inj IVP PRN (11:00)
[2019-01-10] MEDS ORDERED: PCA Morphine 1mg/ml 30 ML IV PRN ×2 (11:00)
--- NOTE | 2019-01-10 11:01 | NUR ---
NURSE NOTES: Discontinued continuous rate on JUNIOR ENGINEER. Settings now bolus dose only 1mg bolus/6min lock out/ 26mg per 4 hr max per MD order.
[2019-01-10] MEDS ORDERED: Potassium Phosphate 30 MM in NS 275ml IV ONE ×4 (12:30)
--- NOTE | 2019-01-10 18:57 | NUR ---
NURSE NOTES: Total ileo output: -30mL Total urine output: 1650mL Patient ambulated once during my shift, had 2 episodes of nausea relieved with Zofran. No emesis.
--- NOTE | 2019-01-10 19:25 | NUR ---
NURSE NOTES: Report taken from KAMERON Cordoba. Patient is awake and in bed, A&Ox4. No signs of distress on room air. Minor complaints of pain primarily with movement, 06/02. WOOD HEEL FLAP INSERTER setting 03/31/25, retaught use of pump for pain. Surgical site c/d/i, continue to monitor and assess. Skin intact. BASILIO PICC c/d/i both ports patent. Running TPN @ 83mls/hr and D1/4NS+20KCl @ 40mls/hr. Trevino c/d/i and patent, draining yellow urine. Ileo c/d draining to gravity, green/brown fluid. Bed in lowest position, call light within reach.
--- NOTE | 2019-01-10 19:36 | NUR ---
HAND-OFF: Report given to Jesse MELO.
[2019-01-10] MEDS: D5 1/4NS w/KCl 20mEq 1,000 ML IV SCH (20:24)
[2019-01-10] MEDS: Dyna-Hex 2% Top Sol 2oz TOPIC SCH (20:24)
[2019-01-10] MEDS: FAT EMULSION 20% IV SCH (20:25)
[2019-01-10] MEDS: TPN IV SCH (20:25)
[2019-01-10] MEDS: COMBIGAN OPHTHALM SCH (20:26)
--- NOTE | 2019-01-10 22:13 | NUR ---
NURSE NOTES: Patient ambulated unit x3. No pain with ambulation.
[2019-01-11] VITALS (7 sets, daily range): BP systolic 112–131; BP diastolic 69–85
[2019-01-11] MEDS: NovoLOG Insulin Flexpen SUBQ SCH ×5 (00:10→23:52)
[2019-01-11 05:47] LABS: IRON 12 ug/dL (50-175); TOTAL IRON BINDING CAPACITY 142 ug/dL (250-450)
[2019-01-11 05:49] LABS: ALANINE AMINOTRANSFERASE 13 U/L (12-78); ALBUMIN 2.2 G/DL (3.4-5.0); ALBUMIN/GLOBULIN RATIO 0.6 (1.0-2.7); ALKALINE PHOSPHATASE 66 U/L (46-116); ANION GAP 6 mmol/L (5-15); ASPARTATE AMINO TRANSFERASE 6 U/L (15-37); BILIRUBIN,TOTAL 0.3 MG/DL (0.2-1.0); BLOOD UREA NITROGEN 9 mg/dL (7-18); CALCIUM 8.5 MG/DL (8.5-10.1); CARBON DIOXIDE 27 MMOL/L (21-32); CHLORIDE 109 MMOL/L (98-107); CREATININE 0.9 MG/DL (0.55-1.30); PHOSPHORUS 2.9 MG/DL (2.5-4.9); POTASSIUM 4.1 MMOL/L (3.5-5.1); SODIUM 142 MMOL/L (136-145)
[2019-01-11 06:00] LABS: % IRON SATURATION 8 % (15-50)
[2019-01-11 06:05] LABS: BASOPHILS % (AUTO) 0.4 % (0.0-2.0); EOSINOPHILS % (AUTO) 4.5 % (0.0-3.0); HEMATOCRIT 33.6 % (42.0-52.0); HEMOGLOBIN 11.6 G/DL (14.2-18.0); MEAN CORPUSCULAR VOLUME 89 FL (80-99); MONOCYTES % (AUTO) 10.7 % (1.0-10.0); NEUTROPHILS % (AUTO) 76.4 % (45.0-75.0); PLATELET COUNT 146 K/UL (150-450); RED BLOOD COUNT 3.76 M/UL (4.70-6.10); RED CELL DISTRIBUTION WIDTH 11.2 % (11.6-14.8); WHITE BLOOD COUNT 10.4 K/UL (4.8-10.8)
--- NOTE | 2019-01-11 06:36 | NUR ---
NURSE NOTES: Patient experienced some minor pain and nausea through the night. His output became more thick near 0300. Added an extra 10cc to both 0300 and 0600 flushes due to increased fluid thickness. Will endorse to MD to get medication to help. Outputs for the night stated below Ileo: 175cc-100cc(flush)= 75cc Urine output: 925
[2019-01-11] MEDS: PCA shift volume MISC SCH ×2 (07:16→19:00)
--- NOTE | 2019-01-11 07:35 | NUR ---
HAND-OFF: Report given to KAMERON Mccall. Patient is awake and in bed, stable.
--- NOTE | 2019-01-11 07:40 | NUR ---
NURSE NOTES: Patient lying in bed awake. Complain of pain 3/10 on surgical site and on FREELANCE DIRECTOR for pain management. Will continue to monitor. Surgical dressing intact and dry. PICC line dressing intact and dry. TPN and IV fluid on going as ordered. Ileostomy catheter and Trevino catheter patent and draining well. Bed lowest position. Call light within reach. Will continue to monitor.
[2019-01-11] MEDS: [UNRECOGNIZED DRUG - OTHER] OPHTHALM SCH (08:57)
[2019-01-11] MEDS ORDERED: Naloxone 0.4mg/ml Inj IVP PRN (09:54)
[2019-01-11] MEDS ORDERED: Rate Change PCA 1 Each MISC PRN (10:00)
--- NOTE | 2019-01-11 10:06 | General Progress Note ---
Progress Note Progress Note AVSS Ambulates in hallways. Pain is decreasing Abdomen soft, healing nicely Urine 2575 BCIR ileo 45cc enteric WBC 10,400 Hgb down 11.6 Platelets down 146,000 BUN 9 Cr 0.9 P and Mg okay Imp. Ileus Pre-admission malnutrition Plan; TPN, npo, continue Trevino Venofer infusions; B12 x 1 Cedrick Juarez MD Jan 11, 2019 10:06
[2019-01-11] MEDS ORDERED: PCA Morphine 1mg/ml 30 ML IV PRN (11:00)
[2019-01-11] MEDS ORDERED: Vitamin B12 1000mcg/ml Inj IM SCH (11:30)
--- NOTE | 2019-01-11 12:30 | NUR ---
NURSE NOTES: Patient ambulated hallway with assist. No complain of dizziness or distress. Patient tolerated activity well. Will continue to monitor.
--- NOTE | 2019-01-11 13:30 | Cardiology Report ---
APPROVED REPORT EKG Measurement Heart [id number] IN [id number] [id number] Normal sinus rhythm Normal ECG
--- NOTE | 2019-01-11 19:30 | NUR ---
HAND-OFF: Report given to Jesse MELO. Patient in stable condition.
[2019-01-11] MEDS: Dyna-Hex 2% Top Sol 2oz TOPIC SCH (20:00)
[2019-01-11] MEDS: TPN IV SCH (20:07)
[2019-01-11] MEDS: FAT EMULSION 20% IV SCH (20:07)
[2019-01-11] MEDS: D5 1/4NS w/KCl 20mEq 1,000 ML IV SCH (20:10)
[2019-01-11] MEDS: COMBIGAN OPHTHALM SCH (20:25)
[2019-01-11] MEDS: Iron Sucrose 100 MG in NS 55 ML IV SCH (20:29)
--- NOTE | 2019-01-11 22:01 | NUR ---
NURSE NOTES: Report taken from KAMERON Mccall. Patient is in bed asleep, arousable by name. A&Ox4. No signs of distress on room air. Complains of minor pain with movement and cough, 07/03. Instructed used of UNDERWATER WELDER pump. UNDERWATER WELDER rate 03/31/25. Surgical site c/d/i, change PRN. BASILIO PICC c/d/i and both ports patent. TPN running at 83mls/hr and D51/4NS+20KCl at 40mls/hr. Skin intact. Patient still NPO. Trevino draining to gravity, ashwin urine. Ileo pantent and draining to gravity, green fluid, Q3 flush. Bed in lowest position, call light within reach.
[2019-01-12] VITALS (9 sets, daily range): BP systolic 100–148; BP diastolic 67–85
[2019-01-12 05:16] LABS: BASOPHILS % (AUTO) 0.7 % (0.0-2.0); EOSINOPHILS % (AUTO) 6.9 % (0.0-3.0); HEMATOCRIT 34.8 % (42.0-52.0); HEMOGLOBIN 11.9 G/DL (14.2-18.0); LYMPHOCYTES % (AUTO) 9.9 % (20.0-45.0); MEAN CORPUSCULAR VOLUME 89 FL (80-99); MONOCYTES % (AUTO) 9.9 % (1.0-10.0); NEUTROPHILS % (AUTO) 72.7 % (45.0-75.0); PLATELET COUNT 186 K/UL (150-450)
[2019-01-12] MEDS: NovoLOG Insulin Flexpen SUBQ SCH ×3 (05:21→18:00)
[2019-01-12 05:31] LABS: ALANINE AMINOTRANSFERASE 14 U/L (12-78); ALBUMIN 2.2 G/DL (3.4-5.0); ALBUMIN/GLOBULIN RATIO 0.6 (1.0-2.7); ALKALINE PHOSPHATASE 62 U/L (46-116); ANION GAP 6 mmol/L (5-15); ASPARTATE AMINO TRANSFERASE 8 U/L (15-37); BILIRUBIN,TOTAL 0.3 MG/DL (0.2-1.0); BLOOD UREA NITROGEN 10 mg/dL (7-18); CALCIUM 8.7 MG/DL (8.5-10.1); CARBON DIOXIDE 27 MMOL/L (21-32); CHLORIDE 109 MMOL/L (98-107); CREATININE 0.9 MG/DL (0.55-1.30); POTASSIUM 4.3 MMOL/L (3.5-5.1); SODIUM 142 MMOL/L (136-145)
--- NOTE | 2019-01-12 06:27 | NUR ---
NURSE NOTES: Patient had a good night. Slept through the night. Ileo output was fluid and green. Urine output light yellow. Outputs as stated below. Pain 3/10, dressing intact. Ileo: 150cc-80cc(flush): 70cc UO: 1525cc
[2019-01-12] MEDS: PCA shift volume MISC SCH ×2 (07:23→19:00)
--- NOTE | 2019-01-12 07:24 | NUR ---
HAND-OFF: Report given to KAMERON Cordoba. patient is awake and VS stable.
--- NOTE | 2019-01-12 07:58 | NUR ---
NURSE NOTES: Received report from Jesse MELO. Patient is awake and oriented, no acute distress noted, reporting no pain at this time. Ileo and izquierdo to gravity drainage. IVF and TPN running per order through BASILIO PICC. P D DRIVER settings checked and verified against order. Updated on plan of care for the day. Side rails upx2, bed low and locked, call light in reach. Will continue to monitor.
[2019-01-12] MEDS ORDERED: NS Irrig 1000ml ONE (08:53)
[2019-01-12] MEDS ORDERED: Tubing IV Secondary IV ONE (08:53)
[2019-01-12] MEDS ORDERED: NS 275ml ONE (08:53)
[2019-01-12] MEDS ORDERED: Naloxone 0.4mg/ml Inj IVP PRN (09:18)
[2019-01-12] MEDS ORDERED: Rate Change PCA 1 Each MISC PRN (09:30)
[2019-01-12] MEDS ORDERED: PCA Morphine 1mg/ml 30 ML IV PRN (09:30)
--- NOTE | 2019-01-12 09:32 | General Progress Note ---
Progress Note Progress Note AVSS Doing well overall. Abdomen soft, mildly distended, healing nicely, stoma with slight medial retraction 3mm [place] - nil Urine 3045 BCIR ileo 190 Hg 11.9 stable labs all satisf Imp. slowly resolving ileus Plan: continue TPN, npo anticipate remove urinary izquierdo in AM if stable overnight Cedrick Juarez MD Jan 12, 2019 09:32
[2019-01-12] MEDS: [UNRECOGNIZED DRUG - OTHER] OPHTHALM SCH (09:33)
--- NOTE | 2019-01-12 18:00 | NUR ---
NURSE NOTES: Both lumens on PICC line occluded. Flushing attempted by two nurses. Dr. Juarez called for order for cathflo. Awaiting callback from MD with further orders.
--- NOTE | 2019-01-12 18:00 | NUR ---
NURSE NOTES: Total ileo output: +245mL Total urine output: 2200mL Ambulated twice in hallway, pain well managed.
--- NOTE | 2019-01-12 18:04 | NUR ---
NURSE NOTES: Received callback from Dr. Juarez. Order received for cathflo (2mg in each port). Order entered, will carry out.
--- NOTE | 2019-01-12 18:47 | NUR ---
NURSE NOTES: Cathflo instilled into both PICC lumens per policy. Currently dwelling, will assess for patency in half an hour per policy. TPN and IVF not currently running, pharmacist Lucas informed and aware, patient educated on s/s of hypoglycemia and educated to inform nurse of any s/s. Unable to administer 1800 dose of Flagyl, per daniel Zavala, endorse administration to next shift once catheter patency restored. Will continue to monitor.
[2019-01-12] MEDS ORDERED: Cathflo Alteplase 2mg Inj INJ SCH (19:00)
--- NOTE | 2019-01-12 19:20 | NUR ---
NURSE NOTES: Unable to aspirate blood from PICC line. Cathflo still swelling per policy. Endorsed to Jesse MELO to reassess for patency per policy. Also endorsed to administer 1800 Flagyl. Addendum: 01/12/19 at 1938 by Beryl Dale RN Edit: Incorrect spelling, cathflo DWELLING, not swelling.
--- NOTE | 2019-01-12 19:20 | NUR ---
NURSE NOTES: Report taken from KAMERON Cordoba. Patient is awake and in bed, A&Ox4. No signs of distress on room air. Beryl endorsed that patient has cath flow in PICC line currently. Attempted to aspirate with no success, will let medication stand for another 30min. Having minor complaints of pain, 06/02. Re-instructed use of BEAM RACKER. Ileo bag draining to gravity, green fluid, Q3hr flush. Trevino draining to gravity. No skin issues. Surgical site c/d/i, change PRN. Bed in lowest position, call light iwthin reach.
--- NOTE | 2019-01-12 19:30 | NUR ---
HAND-OFF: Report given to Jesse MELO.
--- NOTE | 2019-01-12 20:10 | NUR ---
NURSE NOTES: BASILIO PICC patent after cath flow. Contacted pharmacy to change medication admin times.
[2019-01-12] MEDS: D5 1/4NS w/KCl 20mEq 1,000 ML IV SCH (20:21)
[2019-01-12] MEDS: Dyna-Hex 2% Top Sol 2oz TOPIC SCH (20:21)
[2019-01-12] MEDS: TPN IV SCH (20:25)
[2019-01-12] MEDS: FAT EMULSION 20% IV SCH (20:25)
[2019-01-12] MEDS: COMBIGAN OPHTHALM SCH (20:34)
[2019-01-12] MEDS: Iron Sucrose 100 MG in NS 55 ML IV SCH (20:40)
[2019-01-13] VITALS: BP 121/75
[2019-01-13] MEDS: NovoLOG Insulin Flexpen SUBQ SCH ×4 (00:06→18:35)
[2019-01-13 04:00] VITALS: BP 119/71
[2019-01-13 05:32] LABS: BASOPHILS % (AUTO) 1.4 % (0.0-2.0); EOSINOPHILS % (AUTO) 6.3 % (0.0-3.0); HEMATOCRIT 37.4 % (42.0-52.0); HEMOGLOBIN 12.6 G/DL (14.2-18.0); LYMPHOCYTES % (AUTO) 12.4 % (20.0-45.0); MEAN CORPUSCULAR VOLUME 89 FL (80-99); MONOCYTES % (AUTO) 10.6 % (1.0-10.0); NEUTROPHILS % (AUTO) 69.3 % (45.0-75.0); PLATELET COUNT 204 K/UL (150-450); RED BLOOD COUNT 4.19 M/UL (4.70-6.10); WHITE BLOOD COUNT 6.5 K/UL (4.8-10.8)
[2019-01-13 06:08] LABS: ALANINE AMINOTRANSFERASE 12 U/L (12-78); ALBUMIN 2.4 G/DL (3.4-5.0); ALBUMIN/GLOBULIN RATIO 0.6 (1.0-2.7); ALKALINE PHOSPHATASE 65 U/L (46-116); ANION GAP 6 mmol/L (5-15); ASPARTATE AMINO TRANSFERASE 11 U/L (15-37); BILIRUBIN,TOTAL 0.3 MG/DL (0.2-1.0); BLOOD UREA NITROGEN 12 mg/dL (7-18); CALCIUM 8.9 MG/DL (8.5-10.1); CARBON DIOXIDE 25 MMOL/L (21-32); CHLORIDE 109 MMOL/L (98-107); CREATININE 0.9 MG/DL (0.55-1.30); PHOSPHORUS 3.6 MG/DL (2.5-4.9); POTASSIUM 4.4 MMOL/L (3.5-5.1); SODIUM 140 MMOL/L (136-145)
[2019-01-13] MEDS: PCA shift volume MISC SCH (07:12)
--- NOTE | 2019-01-13 07:15 | NUR ---
HAND-OFF: Report given to KAMERON Guevara. Patient is in bed asleep, arousable by name. Patient slept through the night VS stable. No complaints of pain, did not use much of DIGITAL MARKETING LEAD. Outputs for night are below Ileo: 350cc-80cc(flush)= 270cc UO: 1450cc.
--- NOTE | 2019-01-13 07:33 | NUR ---
NURSE NOTES: Patient is in bed awake and able to verbalize needs. Stable. Denies pain or SOB. Patient is encouraged to use call light for assistance, verbalized understanding. TPN, IVF, and KENNEL HAND running via PICC line as ordered. Surgical dressing clean, dry, and intact. F/C draining into bag. Ileo draining into bag, will monitor I&O. Patient is in bed in locked and lowest position with call light within reach and trapeze over head. Will continue to monitor.
[2019-01-13 08:00] VITALS: BP 138/82
[2019-01-13] MEDS: [UNRECOGNIZED DRUG - OTHER] OPHTHALM SCH (08:48)
[2019-01-13] MEDS ORDERED: Rate Change PCA 1 Each MISC PRN (10:00)
[2019-01-13] MEDS ORDERED: LORazepam 1mg tab SL PRN ×2 (10:00→11:00)
[2019-01-13] MEDS ORDERED: PCA Morphine 1mg/ml 30 ML IV PRN (10:00)
[2019-01-13] MEDS ORDERED: Naloxone 0.4mg/ml Inj IVP PRN (10:00)
--- NOTE | 2019-01-13 10:06 | General Progress Note ---
Progress Note Progress Note AVSS Continues stable, ambulates well Abdomen remains mildly distended and tympanitic, healing nicely, john - nil Urine 3650 BCIR ileo 515 WBC 6500 Hgb 12.6 Phos 3.6 Mg 1.8 Imp. Persistent ileus Plan: continue TPN, NPO, Venofer d/c urinary Trevino d/c PICTURE HANGER (not using it) Cedrick Juarez MD Jan 13, 2019 10:06
[2019-01-13] MEDS ORDERED: HYDROcodone/Acetamin 5/325 tab ORAL PRN (10:15)
--- NOTE | 2019-01-13 10:15 | NUR ---
NURSE NOTES: F/C d/c as ordered, tolerated well. Will monitor for urine output. ELECTRIC MOTOR ASSEMBLER d/c and syringe and tubing wasted with pharmacist Merlin. IVF rate changed to 20cc/hr as ordered. WIll continue to monitor I&O.
[2019-01-13] MEDS: D5 1/4NS w/KCl 20mEq 1,000 ML IV SCH (10:30)
--- NOTE | 2019-01-13 10:40 | NUR ---
NURSE NOTES: Patient had 75cc urine output. No c/o burning or discomfort. Pt knows to leave UO in urinal for RN to measure output. Will continue to monitor.
[2019-01-13 12:00] VITALS: BP 127/79
--- NOTE | 2019-01-13 13:54 | NUR ---
RD ASSESSMENT & RECOMMENDATIONS SEE CARE ACTIVITY FOR COMPLETE ASSESSMENT DAILY ESTIMATED NEEDS: Needs based on Surgery/ 72.5kg 25-30 kcals/kg 2769-2861 total kcals 1-2 g protein/kg 72-145 g total protein 25-30 mL/kg 0810-3546 total fluid mLs NUTRITION DIAGNOSIS: Altered GI function R/T h/o UC, admitted w/ malfunctioning BCIR as evidenced by s/p laparotomy with revision of Quevedo continent ileostomy pouch valve and revision of stoma and access segment, NPO, on TPN CURRENT DIET:NPO, on TPN PO DIET RECOMMENDATIONS: Diet per PARENTERAL NUTRITION RECOMMENDATIONS: D/AA Rate: 74 IL Rate: 9 Total Rate: 83 Volume: 1992 % Dextrose: 18 % AA: 5.3 Energy (kcals/kg): 1895 Protein (g/kg protein): 94 Nonprotein KCALS: 1519 GIR (mg CHO/kg/min): 3.05 % Fat KCALS: 23 NCP: N Ratio: 101 TPN Comment: * D18% AA 5.3% @ 74ml/hr + IL20% @ 9ml/hr -> total of 83ml/hr, all 3:1 * TPN will provide 100% est kcal/prot needs (26kcal/1.3g prot) ADDITIONAL RECOMMENDATIONS: * Standing weight for accurate CBW * Monitor lytes, BGs, and LFTs closely on TPN * Diet per
--- NOTE | 2019-01-13 14:18 | NUR ---
HAND-OFF: Report given to Kirstie MELO. Patient is stable.
[2019-01-13 16:00] VITALS: BP 127/77
--- NOTE | 2019-01-13 18:15 | NUR ---
NURSE NOTES: Pt ambulated around unit a couple of times this evening without incident. Returned to bed w/no complaints. Will continue to monitor.
[2019-01-13] MEDS ORDERED: PCA shift volume MISC SCH (19:00)
--- NOTE | 2019-01-13 19:18 | NUR ---
HAND-OFF: Report given to KAMERON Stockton.
--- NOTE | 2019-01-13 19:30 | NUR ---
nurse's notes: received patient awake, alert and oriented; denies any pain except when coughing or sneezing; no other complaints received; TPN and zosyn infusing through a BASILIO PICC line; dressing clean, dry and intact; slight bruising noted on the inner lateral of the left forearm; PICC line slight sluggish when flushed with NS; abdominal surgical site dressing is also clean, dry and intact; ileostomy to gravity, draining well with greenish output; VSS, in no apparent distress. plan of care discussed with patient who is agreeable; education done on pain management, ileostomy care; patient verbalized understanding. will continue to monitor.
--- NOTE | 2019-01-13 19:59 | NUR ---
CASE MANAGEMENT: REVIEW 68Y/MALE CC: INCONTINENCE AND DIFFICULTY w/INTUBATION SI: MALFUNCTIONING DOTY CONTINENT ILEOSTOMY DOTY POUCH ENDOSCOPY 01/07 T 97.5 HR 80 RR 18 BP 136/78 SAT 97% ROOM AIR PHOS 1.6 MAG 1.5 ALBUMIN 2.3 IS: D5 1/2 NS w/KCl 20MEQ IVF X1 LACTATED RINGER'S IV X1 ACETAMINOPHEN IV X1 CLEAR LIQUID DIET PATIENT ADMITTED TO MED/SURG UNIT 01/07/2019 DCP: PATIENT IS FROM HOME
[2019-01-13 20:00] VITALS: BP 113/75
--- NOTE | 2019-01-13 20:00 | NUR ---
nurse's notes:although skin is generally intact except for the abdominal incision, patient c/o of itchiness on his back notably from his shoulder blades down to his lower back; noted some redness on the said area; sponge bath done; calazime applied as requested by patient; pillows placed on his back for support as patient will try to sleep on his left side. will continue to monitor.
[2019-01-13] MEDS: Dyna-Hex 2% Top Sol 2oz TOPIC SCH (20:07)
[2019-01-13] MEDS: Iron Sucrose 100 MG in NS 55 ML IV SCH (20:07)
[2019-01-13] MEDS: FAT EMULSION 20% IV SCH (20:11)
[2019-01-13] MEDS: TPN IV SCH (20:11)
[2019-01-13] MEDS: COMBIGAN OPHTHALM SCH (20:51)
[2019-01-14] VITALS: BP 111/72
[2019-01-14] MEDS: NovoLOG Insulin Flexpen SUBQ SCH ×4 (00:08→18:00)
[2019-01-14] MEDS: D5 1/4NS w/KCl 20mEq 1,000 ML IV SCH (03:30)
[2019-01-14 04:00] VITALS: BP 119/73
[2019-01-14 05:43] LABS: BASOPHILS % (AUTO) 1.5 % (0.0-2.0); EOSINOPHILS % (AUTO) 7.8 % (0.0-3.0); HEMATOCRIT 37.9 % (42.0-52.0); HEMOGLOBIN 12.7 G/DL (14.2-18.0); LYMPHOCYTES % (AUTO) 12.5 % (20.0-45.0); MEAN CORPUSCULAR VOLUME 89 FL (80-99); MONOCYTES % (AUTO) 9.5 % (1.0-10.0); NEUTROPHILS % (AUTO) 68.7 % (45.0-75.0); PLATELET COUNT 249 K/UL (150-450); RED BLOOD COUNT 4.25 M/UL (4.70-6.10); RED CELL DISTRIBUTION WIDTH 11.1 % (11.6-14.8); WHITE BLOOD COUNT 7.3 K/UL (4.8-10.8)
[2019-01-14 05:59] LABS: ALANINE AMINOTRANSFERASE 14 U/L (12-78); ALBUMIN 2.5 G/DL (3.4-5.0); ALBUMIN/GLOBULIN RATIO 0.7 (1.0-2.7); ALKALINE PHOSPHATASE 75 U/L (46-116); ANION GAP 7 mmol/L (5-15); ASPARTATE AMINO TRANSFERASE 13 U/L (15-37); BILIRUBIN,TOTAL 0.3 MG/DL (0.2-1.0); BLOOD UREA NITROGEN 16 mg/dL (7-18); CARBON DIOXIDE 27 MMOL/L (21-32); CHLORIDE 107 MMOL/L (98-107); CREATININE 0.9 MG/DL (0.55-1.30); POTASSIUM 4.5 MMOL/L (3.5-5.1); SODIUM 141 MMOL/L (136-145)
--- NOTE | 2019-01-14 06:21 | NUR ---
nurse's notes: no significant changes noted this shift; no c/o pain, shortness of breath or any distress; picc line dressing changed using aseptic technique; patient tolerated procedure well; blood glucose checks done; covered with insulin per sliding scale; no s/s of hypoglycemia; ileostomy continues to have dark green output; net output is 595 mls; UOP 450 mls.; abdominal dressing continues to be clean, dry and intact.
--- NOTE | 2019-01-14 07:30 | NUR ---
NURSE NOTES: Pt lying in bed w/bed in lowest position and call light within reach. Pt A&Ox4, VSS, and in no apparent distress at this time. BASILIO PICC line intact/asymptomatic w/IVF & TPN infusing; ileo to drainage bag & draining well; and surgical dressing is C/D/I. Will continue to monitor.
[2019-01-14 08:00] VITALS: BP 110/76
--- NOTE | 2019-01-14 08:17 | General Progress Note ---
Progress Note Progress Note AVSS Has thrush with coated tongue. Feeling much better overall. Voiding normally Abdomen soft, non-distended, healing nicely Urine 2100 BCIR ileo 1140 labs all satisf Imp. Ileus resolved Plan: clear liquid diet Diflucan 150mg po + Nystatin oral S&S QID continue TPN, strict I&O maintain continuous drainage of Quevedo Pouch continent ileostomy Cedrick Juarez MD Jan 14, 2019 08:17
[2019-01-14] MEDS: [UNRECOGNIZED DRUG - OTHER] OPHTHALM SCH (09:14)
[2019-01-14] MEDS: Nystatin Susp 500,000 units/5ml ORAL SCH ×4 (09:15→20:38)
[2019-01-14] MEDS ORDERED: Fluconazole 150mg tab ORAL ONE (10:00)
[2019-01-14 11:46] VITALS: BP 137/86
[2019-01-14 16:00] VITALS: BP 116/73
--- NOTE | 2019-01-14 18:42 | NUR ---
NURSE NOTES: Pt ambulated around unit on two separate occasions today w/o incident; returned safely to bed. Will continue to monitor.
--- NOTE | 2019-01-14 19:46 | NUR ---
HAND-OFF: Report given to KAMERON Colon.
[2019-01-14 20:00] VITALS: BP 121/77
--- NOTE | 2019-01-14 20:00 | NUR ---
NURSE NOTES: Patient in bed awake and oriented. VSS. No SOB noted. No pain. No N&V. Ileo flushed per MD's order. PICC line is clean and intact. able to tolerate TPN well. Needs attended. Call light within reach. In stable condition.
[2019-01-14] MEDS: COMBIGAN OPHTHALM SCH (20:39)
[2019-01-14] MEDS: Dyna-Hex 2% Top Sol 2oz TOPIC SCH (20:39)
[2019-01-14] MEDS: Iron Sucrose 100 MG in NS 55 ML IV SCH (20:39)
[2019-01-14] MEDS: FAT EMULSION 20% IV SCH (20:42)
[2019-01-14] MEDS: TPN IV SCH (20:42)
[2019-01-15] VITALS: BP 107/75
[2019-01-15 04:00] VITALS: BP 115/76
--- NOTE | 2019-01-15 04:27 | NUR ---
NURSE NOTES: Patient sleeping well. Ileo flushed, draining well. No abdominal pain or cramping. Needs attended.
[2019-01-15 05:11] LABS: BASOPHILS % (AUTO) 1.3 % (0.0-2.0); EOSINOPHILS % (AUTO) 7.5 % (0.0-3.0); HEMATOCRIT 37.8 % (42.0-52.0); LYMPHOCYTES % (AUTO) 13.5 % (20.0-45.0); MEAN CORPUSCULAR VOLUME 89 FL (80-99); NEUTROPHILS % (AUTO) 67.8 % (45.0-75.0); PLATELET COUNT 281 K/UL (150-450); RED BLOOD COUNT 4.25 M/UL (4.70-6.10); RED CELL DISTRIBUTION WIDTH 11.1 % (11.6-14.8)
[2019-01-15 05:31] LABS: ALANINE AMINOTRANSFERASE 21 U/L (12-78); ALBUMIN 2.6 G/DL (3.4-5.0); ALBUMIN/GLOBULIN RATIO 0.7 (1.0-2.7); ALKALINE PHOSPHATASE 87 U/L (46-116); ANION GAP 7 mmol/L (5-15); ASPARTATE AMINO TRANSFERASE 19 U/L (15-37); BILIRUBIN,TOTAL 0.3 MG/DL (0.2-1.0); BLOOD UREA NITROGEN 17 mg/dL (7-18); CARBON DIOXIDE 29 MMOL/L (21-32); CHLORIDE 106 MMOL/L (98-107); POTASSIUM 4.7 MMOL/L (3.5-5.1); SODIUM 142 MMOL/L (136-145)
[2019-01-15] MEDS: NovoLOG Insulin Flexpen SUBQ SCH ×4 (05:47→17:32)
--- NOTE | 2019-01-15 07:23 | NUR ---
NURSE NOTES: Patient received in stable condition, resting in bed. Alert and oriented, denies distress or pain at this time. Breathing unlabored on room air. PICC line on left upper arm patent and intact, currently running TPN and fluids. Ileostomy tube patent, no signs of leakage observed. Surgical dressing c/d/i. Bed locked in lowest position, call light placed within reach. Will continue to monitor.
--- NOTE | 2019-01-15 07:30 | NUR ---
NURSE NOTES: received report from Isaiah Felix pt a/a/o x4 laying in bed with no signs of distress or other issues at this time. Ileostomy bag draining well, health unit coordinator out out: 820ml, Total urine out out during health unit coordinator: 1200ml. PICC line in place running TPN@83ml/hr and TKO @10ml/hr. surgical dressing dry and intact. pt eating breakfast with no complains of n/v or other issues, he stated that he is hungry. RN will notify MD if its ok to advance diet. call light within reach, bed in lowest position. side rales up x2. I will f/u as needed.
[2019-01-15 08:00] VITALS: BP 115/76
[2019-01-15] MEDS ORDERED: Ascorbic Acid 500mg tab ORAL PRN (08:45)
--- NOTE | 2019-01-15 08:45 | General Progress Note ---
Progress Note Progress Note AVSS Tolerated clear liquid diet abdomen soft, flat, healing well. Stoma slightly recessed Urine 3225 BCIR ileo 1815 po nearly 4 liters Hgb up 13 BUN up 17 Cr up 1.0 Albumin 2.6 Imp. Improved Plan: BCIR low residue diet continue TPN another 24-48 hours maintain continuous drainage of Quevedo continent ileostomy pouch Cedrick Juarez MD Jan 15, 2019 08:45
[2019-01-15] MEDS: Nystatin Susp 500,000 units/5ml ORAL SCH ×4 (08:57→21:58)
[2019-01-15] MEDS: [UNRECOGNIZED DRUG - OTHER] OPHTHALM SCH (08:57)
[2019-01-15 12:00] VITALS: BP 117/80
--- NOTE | 2019-01-15 13:17 | NUR ---
SECURITIES TELLERPARKING METER MECHANIC SI: POD#7 S/P REVISION T. 97.4 HR 84 RR 16 B/P 107/75 IS: TPN IV VIT K VIT C BCIR DIET MED/SURG STATUS
[2019-01-15 16:00] VITALS: BP 113/74
--- NOTE | 2019-01-15 19:11 | NUR ---
HAND-OFF: Report given to Valery MELO.
--- NOTE | 2019-01-15 19:30 | NUR ---
NURSE NOTES: Receive a report from Abram MELO. Round is done. Pt is awake and alert. No acute distress noted. Denies any pain. No gas distension or discomfort noted after starting BCIR diet. Ileostomy is natural gravity with 3hrs NS 2ml flushing. Op site is done with dressing and keep dry and clean. TPN is running 83ml/hr via BASILIO PICC without any signs of infiltration. Call light within reach. Will continue to monitor.
--- NOTE | 2019-01-15 19:37 | NUR ---
HAND-OFF: Report given to Valery RN, pt in stable condition. pt was able to tolerate the BCIR diet with no n/c, or cramping. I&O's Ileostomy out put:1000-50=936gu Urine: 2450ml oral intake: 2412ml
[2019-01-15 20:00] VITALS: BP 106/66
[2019-01-15] MEDS: Dyna-Hex 2% Top Sol 2oz TOPIC SCH (20:56)
[2019-01-15] MEDS: TPN IV SCH (20:56)
[2019-01-15] MEDS: FAT EMULSION 20% IV SCH (20:56)
[2019-01-15] MEDS: Iron Sucrose 100 MG in NS 55 ML IV SCH (20:59)
[2019-01-15] MEDS: COMBIGAN OPHTHALM SCH (21:58)
[2019-01-16] VITALS: BP 109/70
[2019-01-16] MEDS: NovoLOG Insulin Flexpen SUBQ SCH ×4 (00:12→17:35)
[2019-01-16 04:45] VITALS: BP 132/75
--- NOTE | 2019-01-16 06:00 | NUR ---
NURSE NOTES: Pt states that rashes are on the back with mild itching sensation. No noted redness or skin abrasion noted but noted scattered some rash. After putting Calazime on the back, pt feels better. Denies abdominal pain. Will continue to monitor. 12hr output Urine: 1325ml Ileostomy: 895ml
[2019-01-16 06:30] LABS: BASOPHILS % (AUTO) 1.4 % (0.0-2.0); EOSINOPHILS % (AUTO) 7.2 % (0.0-3.0); HEMATOCRIT 37.9 % (42.0-52.0); HEMOGLOBIN 12.7 G/DL (14.2-18.0); LYMPHOCYTES % (AUTO) 12.9 % (20.0-45.0); MEAN CORPUSCULAR VOLUME 90 FL (80-99); MONOCYTES % (AUTO) 8.4 % (1.0-10.0); NEUTROPHILS % (AUTO) 70.1 % (45.0-75.0); PLATELET COUNT 289 K/UL (150-450); RED BLOOD COUNT 4.21 M/UL (4.70-6.10); RED CELL DISTRIBUTION WIDTH 11.2 % (11.6-14.8); WHITE BLOOD COUNT 9.4 K/UL (4.8-10.8)
[2019-01-16 07:17] LABS: ALANINE AMINOTRANSFERASE 31 U/L (12-78); ALBUMIN 2.7 G/DL (3.4-5.0); ALBUMIN/GLOBULIN RATIO 0.7 (1.0-2.7); ALKALINE PHOSPHATASE 121 U/L (46-116); ANION GAP 7 mmol/L (5-15); ASPARTATE AMINO TRANSFERASE 25 U/L (15-37); BILIRUBIN,TOTAL 0.2 MG/DL (0.2-1.0); BLOOD UREA NITROGEN 22 mg/dL (7-18); CARBON DIOXIDE 28 MMOL/L (21-32); CHLORIDE 105 MMOL/L (98-107); POTASSIUM 4.4 MMOL/L (3.5-5.1); SODIUM 140 MMOL/L (136-145)
--- NOTE | 2019-01-16 07:45 | NUR ---
HAND-OFF: Report given to Aster MELO. Round is done.
[2019-01-16 08:00] VITALS: BP 117/78
--- NOTE | 2019-01-16 08:00 | NUR ---
NURSE NOTES: Received report from Valery RN, pt a/a/o x4 laying in bed with no signs of distress or other issues at this time. ileostomy bag draining well, per cnc machinist 2nd shift nurse total ileo out put: 895ml, total urine 1325ml, total oral intake: 300ml. PICC line in place running TPN@83ml/hr, and NS@10ml/hr. pt is able to ambulate with steady gait. call light within reach, bed in lowest position, side rales up x4. I will f/u as needed.
[2019-01-16] MEDS ORDERED: Phytonadione 10 mg/mL 1ml amp SUBQ SCH (09:00)
[2019-01-16] MEDS: [UNRECOGNIZED DRUG - OTHER] OPHTHALM SCH (09:02)
[2019-01-16] MEDS: Nystatin Susp 500,000 units/5ml ORAL SCH ×4 (09:02→21:01)
[2019-01-16 12:00] VITALS: BP 122/74
--- NOTE | 2019-01-16 12:16 | NUR ---
RD ASSESSMENT & RECOMMENDATIONS SEE CARE ACTIVITY FOR COMPLETE ASSESSMENT DAILY ESTIMATED NEEDS: Needs based on Surgery/ 72.5kg 25-30 kcals/kg 8610-8032 total kcals 1-2 g protein/kg 72-145 g total protein 25-30 mL/kg 6245-9029 total fluid mLs NUTRITION DIAGNOSIS: Altered GI function R/T h/o UC, admitted w/ malfunctioning BCIR as evidenced by s/p laparotomy with revision of Quevedo continent ileostomy pouch valve and revision of stoma and access segment, diet advanced to BCIR, remains on TPN CURRENT DIET:BCIR diet PO DIET RECOMMENDATIONS: Diet per MD PARENTERAL NUTRITION RECOMMENDATIONS: D/AA Rate: 74 IL Rate: 9 Total Rate: 83 Volume: 1992 % Dextrose: 18 % AA: 5.3 Energy (kcals/kg): 1895 Protein (g/kg protein): 94 Nonprotein KCALS: 1519 GIR (mg CHO/kg/min): 3.05 % Fat KCALS: 23 NCP: N Ratio: 101 TPN Comment: * D18% AA 5.3% @ 74ml/hr + IL20% @ 9ml/hr -> total of 83ml/hr, all 3:1 * TPN will provide 100% est kcal/prot needs (26kcal/1.3g prot) --> On BCIR diet now, rec to taper off TPN with continued diet tolerance ADDITIONAL RECOMMENDATIONS: * Standing weight for accurate CBW-> 157lbs (01/16) * Monitor lytes, BGs, and LFTs closely on TPN Rec updated phos * Diet per MD * With good tolerance of diet, rec to taper off TPN by 25% * Provided BCIR diet edu
--- NOTE | 2019-01-16 15:44 | General Progress Note ---
Progress Note Progress Note AVSS Eating BCIR diet 50% Feels okay ABdomen soft, healing nicely Urine 3775 BCIR ileo 181 still watery labs stable except BUN up 22 Albumin up 2.7 Imp. Improving but high volume watery BCIR output Plan: stool for C. Diff toxin (Quevedo pouch output) continue Venbertha, TPN, continuous drainage of Quevedo pouch Cedrick Juarez MD Jan 16, 2019 15:44
[2019-01-16 16:00] VITALS: BP 133/75
--- NOTE | 2019-01-16 19:30 | NUR ---
NURSE NOTES: Received report from KAMERON Burgos and rounds made with outgoing nurse. Received pt laying in bed, AOx4, denies any pain, no distress noted. Surgical site c/d/i. Ileo to drainage bag. Piccline patent and intact. IV fluid and TPN infusing as ordered. Bed in lowest position and locked, side rails up x 2, call light within reach. Will contnue to monitor.
--- NOTE | 2019-01-16 19:35 | NUR ---
HAND-OFF: Report given to Isaiah Bains pt in stable condition. - During my shift pt was able to ambulate around x4 the unit with steady gait. - pt was able to tolerate the BCIR diet with no n/v, or cramping. Total I&O's total ileostomy output: 865-98=160ws total urine output: 2250ml total oral intake: 1690ml BCIR diet: B: 100%, L:100%, D: 50%
[2019-01-16] MEDS: Dyna-Hex 2% Top Sol 2oz TOPIC SCH (19:57)
[2019-01-16 20:00] VITALS: BP 116/69
[2019-01-16] MEDS: TPN IV SCH (20:05)
[2019-01-16] MEDS: FAT EMULSION 20% IV SCH (20:05)
[2019-01-16] MEDS: COMBIGAN OPHTHALM SCH (21:01)
[2019-01-16] MEDS: Iron Sucrose 100 MG in NS 55 ML IV SCH (21:01)
[2019-01-17] VITALS: BP 107/63
[2019-01-17] MEDS: NovoLOG Insulin Flexpen SUBQ SCH ×4 (00:07→18:00)
[2019-01-17 06:11] VITALS: BP 106/66
[2019-01-17 06:51] LABS: BASOPHILS % (AUTO) 1.5 % (0.0-2.0); EOSINOPHILS % (AUTO) 6.8 % (0.0-3.0); HEMATOCRIT 35.4 % (42.0-52.0); LYMPHOCYTES % (AUTO) 14.1 % (20.0-45.0); MEAN CORPUSCULAR VOLUME 90 FL (80-99); MONOCYTES % (AUTO) 8.5 % (1.0-10.0); NEUTROPHILS % (AUTO) 69.1 % (45.0-75.0); PLATELET COUNT 299 K/UL (150-450); RED BLOOD COUNT 3.92 M/UL (4.70-6.10); RED CELL DISTRIBUTION WIDTH 11.3 % (11.6-14.8); WHITE BLOOD COUNT 8.8 K/UL (4.8-10.8)
[2019-01-17 07:21] LABS: ALANINE AMINOTRANSFERASE 23 U/L (12-78); ALBUMIN 2.6 G/DL (3.4-5.0); ALBUMIN/GLOBULIN RATIO 0.7 (1.0-2.7); ALKALINE PHOSPHATASE 104 U/L (46-116); ANION GAP 3 mmol/L (5-15); ASPARTATE AMINO TRANSFERASE 17 U/L (15-37); BILIRUBIN,TOTAL 0.2 MG/DL (0.2-1.0); BLOOD UREA NITROGEN 22 mg/dL (7-18); CALCIUM 8.6 MG/DL (8.5-10.1); CARBON DIOXIDE 28 MMOL/L (21-32); CHLORIDE 107 MMOL/L (98-107); CREATININE 0.9 MG/DL (0.55-1.30); POTASSIUM 4.3 MMOL/L (3.5-5.1); SODIUM 138 MMOL/L (136-145)
--- NOTE | 2019-01-17 07:32 | NUR ---
HAND-OFF: Report given to KAMERON Burgos. Pt in stable condition.
--- NOTE | 2019-01-17 07:45 | NUR ---
NURSE NOTES: Received report from Isaiah Bains pt a/a/o x4 laying in bed with no signs of distress or other issues at this time. surgical dressing dry and intact. ileostomy draining well, total out put during manager shift:370 ml. total oral intake: 220ml, total urine out put: 1000ml. last accucheck: 111. call light within reach, bed in lowest position. side rales up x2. I will f/u as needed.
[2019-01-17 08:00] VITALS: BP 118/75
[2019-01-17] MEDS: Nystatin Susp 500,000 units/5ml ORAL SCH ×4 (08:30→21:21)
[2019-01-17] MEDS: [UNRECOGNIZED DRUG - OTHER] OPHTHALM SCH (08:30)
--- NOTE | 2019-01-17 11:29 | General Progress Note ---
Progress Note Progress Note AVSS Eating 70% BCIR diet. C.diff toxin negative Abdomen soft, claudia removed and steristrips applied. [place] drain removed Urine 3850 BCIR fileo 1235 Imp. Improving Plan: TPN one additional day Maintain continuous drainage of Quevedo pouch Cedrick Juarez MD Jan 17, 2019 11:29
[2019-01-17 12:00] VITALS: BP 123/89
[2019-01-17 16:00] VITALS: BP 109/67
--- NOTE | 2019-01-17 19:20 | NUR ---
NURSE NOTES: Received report from KAMERON Burgos. Received pt ambulating in the hallway, gait steady, denies any pain, no distress noted. Piccline patent and intact. IV fluid and TPN infusing as ordered. Surgical dressing c/d/i. Ileo to gravity light brownish output. Will continue to monitor.
--- NOTE | 2019-01-17 19:24 | NUR ---
HAND-OFF: Report given to Isaiah Bains pt in stable condition. total I&O's total ileostomy: 800-23=992st total urine out put: 1325ml total oral intake: 2126ml - pt was able to tolerate regular diet: B:75%, L:100%, D: 100%
[2019-01-17 20:00] VITALS: BP 101/63
[2019-01-17] MEDS: Dyna-Hex 2% Top Sol 2oz TOPIC SCH (20:12)
[2019-01-17] MEDS: TPN IV SCH (20:17)
[2019-01-17] MEDS: FAT EMULSION 20% IV SCH (20:17)
[2019-01-17] MEDS: COMBIGAN OPHTHALM SCH (21:21)
[2019-01-17] MEDS: Iron Sucrose 100 MG in NS 55 ML IV SCH (21:21)
[2019-01-18] VITALS: BP 102/63
[2019-01-18] MEDS: NovoLOG Insulin Flexpen SUBQ SCH ×4 (05:57→17:54)
[2019-01-18 06:00] VITALS: BP 104/68
--- NOTE | 2019-01-18 07:28 | NUR ---
HAND-OFF: Report given to KAMERON Thacker. Pt stable condition.
--- NOTE | 2019-01-18 07:30 | NUR ---
NURSE NOTES: Pt lying in bed w/bed in lowest position and call light within reach. Pt A&Ox4, VSS, and in no apparent distress at this time. BASILIO PICC line intact/asymptomatic w/TPN running; ileo to drainage bag; and surgical dressing C/D/I. Pt tolerating PO intake well and c/o some burning pain where ileo is stitched to skin; will notify MD and continue to monitor.
[2019-01-18 08:00] VITALS: BP 121/77
[2019-01-18] MEDS: Nystatin Susp 500,000 units/5ml ORAL SCH ×4 (08:43→20:07)
[2019-01-18] MEDS: [UNRECOGNIZED DRUG - OTHER] OPHTHALM SCH (08:44)
[2019-01-18] MEDS ORDERED: LORazepam 1mg tab SL PRN ×2 (09:15→11:00)
--- NOTE | 2019-01-18 09:38 | General Progress Note ---
Progress Note Progress Note AVSS Doing well with diet and no cramping Abdomen soft. BCIR ileo catheter removed - reinserts readily 7-8 inches (large , mature pouch) Urine 2325 BCIR Ileo 1080 Imp: Improved Plan: D/C TPN after current supply infused give Venofer again tonight - 800mg total infused during stay Begin RN supervised BCIR self-intubations q3h am to hs and prn overnight continue strict I&O labs in AM Cedrick Juarez MD Jan 18, 2019 09:38
[2019-01-18] MEDS ORDERED: HYDROcodone/Acetamin 5/325 tab ORAL PRN (10:15)
[2019-01-18 12:00] VITALS: BP 137/85
--- NOTE | 2019-01-18 12:30 | NUR ---
NURSE NOTES: Pt self-intubated ileo w/Prachi catheter w/some blood noted w/intubation; pt also ambulated around unit for about 10 minutes w/o incident. Will continue to monitor.
[2019-01-18 16:00] VITALS: BP 127/75
--- NOTE | 2019-01-18 19:26 | NUR ---
HAND-OFF: Report given to KAMERON Farias. Endorsed to decrease TPN to 40 ml/hr x 2 hrs and that D/C supplies at bedside.
--- NOTE | 2019-01-18 19:30 | NUR ---
NURSE NOTES: Received report & pt from KAMERON Thacker. Pt lying in bed, a&ox4, in room air. No s/s of acute distress & no c/o pain at this time. Pt to self intubate Q3HR til HS. Next due @ 2100 & after HS only PRN & pt aware. PICC site intact with TPN running as ordered. Bed in lowest position, call light within reach. Will continue to monitor.
[2019-01-18 20:00] VITALS: BP 110/66
[2019-01-18] MEDS: Dyna-Hex 2% Top Sol 2oz TOPIC SCH (20:07)
[2019-01-18] MEDS: Iron Sucrose 100 MG in NS 55 ML IV SCH (20:39)
[2019-01-18] MEDS: COMBIGAN OPHTHALM SCH (20:39)
[2019-01-19] VITALS: BP 107/70
[2019-01-19 04:00] VITALS: BP 101/66
--- NOTE | 2019-01-19 07:30 | NUR ---
HAND-OFF: Report given to KAMERON Thacker & KAMERON Zavala. Rounds done. Pt in stable condition.
--- NOTE | 2019-01-19 07:35 | NUR ---
NURSE NOTES: Received pt in bed, AAO x 4. Room air. No c/o of pain/distress. PICC line intact and patent, with HL. Bed in the lowest and locked. Call light within reach. Will continue to monitor
[2019-01-19 07:36] LABS: BASOPHILS % (AUTO) 1.2 % (0.0-2.0); EOSINOPHILS % (AUTO) 6.5 % (0.0-3.0); HEMATOCRIT 33.3 % (42.0-52.0); HEMOGLOBIN 11.5 G/DL (14.2-18.0); LYMPHOCYTES % (AUTO) 13.9 % (20.0-45.0); MEAN CORPUSCULAR VOLUME 89 FL (80-99); MONOCYTES % (AUTO) 5.6 % (1.0-10.0); NEUTROPHILS % (AUTO) 72.9 % (45.0-75.0); PLATELET COUNT 278 K/UL (150-450); RED BLOOD COUNT 3.75 M/UL (4.70-6.10); RED CELL DISTRIBUTION WIDTH 11.1 % (11.6-14.8)
[2019-01-19 08:00] VITALS: BP 118/69
[2019-01-19 09:03] LABS: ALANINE AMINOTRANSFERASE 41 U/L (12-78); ALBUMIN 2.7 G/DL (3.4-5.0); ALBUMIN/GLOBULIN RATIO 0.8 (1.0-2.7); ALKALINE PHOSPHATASE 128 U/L (46-116); ANION GAP 8 mmol/L (5-15); ASPARTATE AMINO TRANSFERASE 28 U/L (15-37); BILIRUBIN,TOTAL 0.3 MG/DL (0.2-1.0); BLOOD UREA NITROGEN 23 mg/dL (7-18); CALCIUM 9.1 MG/DL (8.5-10.1); CARBON DIOXIDE 25 MMOL/L (21-32); CHLORIDE 108 MMOL/L (98-107); CREATININE 0.8 MG/DL (0.55-1.30); POTASSIUM 4.2 MMOL/L (3.5-5.1); SODIUM 141 MMOL/L (136-145)
[2019-01-19] MEDS: [UNRECOGNIZED DRUG - OTHER] OPHTHALM SCH (09:07)
[2019-01-19] MEDS: Nystatin Susp 500,000 units/5ml ORAL SCH ×4 (09:07→20:03)
[2019-01-19] MEDS ORDERED: Sodium Chloride 550 ML IV STA (09:24)
--- NOTE | 2019-01-19 09:44 | General Progress Note ---
Progress Note Progress Note AVSS Intubating readily with 30Fr Prachi catheter. Using large size stent Abdomen soft, well healed Stoma with lateral mild retraction and firmness superior to stoma - no inflammation BUN up 23 Cr 0.8 albumin 2.7 Urine 3100 BCIR ileo 950 Imp: Doing well Mild dehydration Plan: NS 500cc IV then remove PICC Continue q3h BCIR intubations and wearing large stent Anticipate discharge in AM Supplies/limitations/instructions provided/discussed Rx none F/U office 01/24 Cedrick Juarez MD Jan 19, 2019 09:44
[2019-01-19 12:00] VITALS: BP 120/69
--- NOTE | 2019-01-19 14:30 | NUR ---
NURSE NOTES: Removed PICC line w/o incident; tip intact and no excessive bleeding noted 10 minutes after removal. Will continue to monitor.
[2019-01-19 16:00] VITALS: BP 120/70
[2019-01-19] MEDS ORDERED: NS 275ml ONE (16:08)
[2019-01-19] MEDS ORDERED: NS Irrig 1000ml ONE (16:08)
[2019-01-19] MEDS ORDERED: NS 500ML ONE (16:08)
--- NOTE | 2019-01-19 18:15 | NUR ---
NURSE NOTES: Pt ambulated three times during my shift around unit without incident. Will continue to monitor.
--- NOTE | 2019-01-19 19:18 | NUR ---
HAND-OFF: Report given to KAMERON Farias.
--- NOTE | 2019-01-19 19:30 | NUR ---
NURSE NOTES: Received report & pt from KAMERON Thacker. Pt lying in bed, a&ox4, in room air. No s/s of acute distress & no c/o pain at this time. Pt to be D/C'd tomorrow morning as ordered by . Per pt, wants to leave by 0645. Will give flu shot as ordered & will return pt's home meds (2 eye drops) when done. Bed in lowest position, call light within reach. Will continue to monitor.
[2019-01-19] MEDS: COMBIGAN OPHTHALM SCH (20:03)
--- NOTE | 2019-01-20 06:55 | NUR ---
DISCHARGE NOTE: Pt D/C'd to home as ordered by MD. D/C paperwork & instructions signed, explained, & given. No more IV access. All belongings checked. Home meds returned back to pt. A&ox4, denies pain, nausea, & vomiting. Educated pt on s/s to report to MD & pt verbalized understanding. Accompanied pt downstairs to private vehicle.
--- NOTE | 2019-01-20 09:03 | General Progress Note ---
Progress Note Progress Note Did well with intubating Quevedo pouch, and wearing the stent continuously. Understands the plan and all instructions/limitations. Plan: Discharged Cedrick Juarez MD Jan 20, 2019 09:03
--- NOTE | 2019-01-22 09:59 | Discharge Summary ---
Discharge Summary Hospital Course Date of Admission Jan 07, 2019 at 08:46 Date of Discharge Jan 20, 2019 at 06:55 Admitting Diagnosis Malfuntioning Quevedo Pouch Reason for Hospitalization: elective surgery HPI Raji Vivar Sr is a 68 year old male who was admitted on Jan 07, 2019 at 08: 46 for Malfuntioning Quevedo Pouch Procedures s/p 01/07/[address] Larry Quevedo continent ileostomy pouch endoscopy. 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 s/p 01/08/[address] Juarez Laparotomy with revision of Quevedo continent ileostomy pouch valve and revision of stoma and access segment. Hospital Course -patient admitted -patient undergone 01/07 Quevedo continent ileostomy pouch endoscopy. -endoscopy revealed stoma stenosis, partially slipped valve and possible valve fistula -patient subsequently undergone on 01/08 laparotomy with revision of Quevedo continent ileostomy pouch valve and revision of stoma and access segment. -patient tolerated procedure well -pain management was addressed with ASBESTOS REMOVAL SUPERVISOR morphine -intake and output were closely monitored of Aleta drain, Trevino catheter and BCIR ileostomy -patient remained n.p.o. except medication and occasional ice chips -patient was mobilized with assistance twice a day -Trevino catheter was continued due to extensive adhesion of Quevedo pouch to bladder -patient started on TPN -electrolytes/magnesium and phosphorus corrected -continuous infusion of ASBESTOS REMOVAL SUPERVISOR was discontinued 01/10 -incision was healing nicely -[place] drain discontinued -laboratory work-up revealed drop in hemoglobin -patient received Venofer infusion along with B12 x1 -Trevino catheter and ASBESTOS REMOVAL SUPERVISOR were discontinued on 01/13 -ileus was slowly resolving -on 01/14 patient started on clear liquid diet -TPN was continued -strict intake and output continued -patient started on Diflucan 150 mg p.o. and nystatin oral swish and swallow 4 times daily -continuous drainage of Quevedo pouch continent ileostomy was maintained -on 01/15 patient was advanced to BCIR low residue diet -patient was noted to have high volume of watery BCIR output -stool for C. difficile was negative -continuous drainage of Quevedo pouch along with TPN continued -patient was slowly improving -TPN was discontinued on 01/19 -additional Venofer provided -patient started on RN supervised BCIR self intubation every 3 hours a.m. to at bedtime and as needed overnight -strict intake and output continued. -patient received 500 cc NS due to mild dehydration and then PICC line was discontinued -BCIR self intubation every 3 hours and very large stent continued -supplies/limitation/instruction provided/discussed with patient -patient to follow-up in the office on 01/24 -patient was able to intubate well pouch and was wearing the stent continuously -patient was stable for discharge home FINAL DIAGNOSES 1. 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 2. History of ulcerative colitis. 3. Status post multiple abdominal operations. 3.1. Total colectomy with ileoanal J-pouch in 1989. 3.2. Diverting ileostomy 2013. 3.3. Quevedo continent intestinal reservoir continent ileostomy with resection of failed J-pouch and abdomino-perineal proctectomy November 2014. 3.4. Revision of Quevedo continent ileostomy valve stoma and access segment performed in [place] April 12, 2018. 4. s/p 01/07/19 Laparotomy with revision of Quevedo continent ileostomy pouch valve and revision of stoma and access segment 5. Ileus-resolved 6. Malnutrition 7. Anemia Discharge Condition Upon Discharge: stable Discharge Disposition Patient was discharged home Discharge Instructions Discharge Instructions Special Instructions I have been assigned to complete a D/C Summary on this account. I was not involved in the patient management Chela Fisher NP Jan 22, 2019 09:59
== END 2019-01-20 06:55 | disposition home or self-care (01) | DRG 330 ==
LOC: SDSOVERFLO 08:46 → 3E 08:56
PROC: B518ZZA Fluoroscopy of Superior Vena Cava, Guidance (ICD-10-PCS; principal; 2019-01-07 11:58)
PROC: 02HV33Z Insertion of Infusion Device into Superior Vena Cava, Percutaneous Approach (ICD-10-PCS; principal; 2019-01-07 11:58)
PROC: 0DJD8ZZ Inspection of Lower Intestinal Tract, Via Natural or Artificial Opening Endoscopic (ICD-10-PCS; principal; 2019-01-07 11:58)
PROC: 0DW807Z Revision of Autologous Tissue Substitute in Small Intestine, Open Approach (ICD-10-PCS; 2019-01-08)
PROC: 0D1B0Z4 Bypass Ileum to Cutaneous, Open Approach (ICD-10-PCS; 2019-01-08)
DX: K94.13 Enterostomy malfunction (principal); K56.7 Ileus, unspecified; E46 Unspecified protein-calorie malnutrition; Z68.23 Body mass index [BMI] 23.0-23.9, adult; E86.0 Dehydration; D64.9 Anemia, unspecified
CPT/HCPCS: 36415; 36569; 71045; 76937; 80053; 81001; 82607; 82746; 82962; 83540; 83550; 83735; 84100; 85025; 85610; 85730; 86850; 86900; 86901; 87324; 90689; 93005; 94003; 94150; J1815; J2250; J2405; J2710

== ENCOUNTER 2019-09-01 15:54 | Inpatient (IN) | payer MEDICARE, BC ==
[~2019-09-01] VITALS: Ht 172.7 cm; Wt 71.0 kg
[~2019-09-01 15:54] MED LIST changes: +COMBIGAN EYE DRO5 ML OP; -Heparin1,000 units/500ml Premix(Conc:2 units/ml) ONE; +LOTEMAX SM5 GM OP; -Lidocaine 1% Plain 30 ml INJ ONE
[2019-09-01 16:31] VITALS: BP 130/84
[2019-09-01 16:50] LABS: APPEARANCE,URINE CLEAR; BILIRUBIN, URINE NEGATIVE (NEGATIVE); GLUCOSE, URINE (UA) NEGATIVE (NEGATIVE); KETONES,URINE 1+ (NEGATIVE); LEUKOCYTE ESTERASE ,URINE 1+ (NEGATIVE); NITRITE,URINE NEGATIVE (NEGATIVE); PH,URINE 6 (4.5-8.0); PROTEIN,URINE 1+ (NEGATIVE); UROBILINOGEN,URINE NORMAL MG/DL (0.0-1.0)
[2019-09-01 16:51] LABS: COLOR,URINE YELLOW
[2019-09-01 16:54] LABS: ANION GAP 9 mmol/L (5-15); BLOOD UREA NITROGEN 14 mg/dL (7-18); CALCIUM 9.1 MG/DL (8.5-10.1); CARBON DIOXIDE 29 MMOL/L (21-32); CHLORIDE 103 MMOL/L (98-107); CREATININE 1.1 MG/DL (0.55-1.30); POTASSIUM 3.5 MMOL/L (3.5-5.1); SODIUM 141 MMOL/L (136-145)
[2019-09-01 16:55] LABS: BASOPHILS % (AUTO) 2.2 % (0.0-2.0); EOSINOPHILS % (AUTO) 5.3 % (0.0-3.0); HEMATOCRIT 46.6 % (42.0-52.0); HEMOGLOBIN 14.6 G/DL (14.2-18.0); LYMPHOCYTES % (AUTO) 26.1 % (20.0-45.0); MEAN CORPUSCULAR VOLUME 93 FL (80-99); MONOCYTES % (AUTO) 10.2 % (1.0-10.0); NEUTROPHILS % (AUTO) 56.2 % (45.0-75.0); PLATELET COUNT 237 K/UL (150-450); RED BLOOD COUNT 5.03 M/UL (4.70-6.10); RED CELL DISTRIBUTION WIDTH 11.9 % (11.6-14.8); WHITE BLOOD COUNT 6.8 K/UL (4.8-10.8)
--- NOTE | 2019-09-01 16:55 | Emergency Room Report ---
History of Present Illness General Chief Complaint: Gastrointestinal Illness Source: Patient Present Illness HPI Patient presents with complaints of ongoing discomfort and redness to his Bowie's pouch on the right lower abdomen Patient has been having ongoing problems with this area reports being on recently antibiotics And was doing better however the pain has returned Denies any vomiting however he has decreased oral intake patient has been able to self intubate the region However recently there was increased discharge Pain is 6 out of 10 Allergies: Coded Allergies: PENICILLINS (Verified Allergy, Intermediate, 01/07/19) COVID-19 Screening Contact w/high risk pt: No Recent Travel to affected area: No Experienced COVID-19 symptoms?: No COVID-19 Testing performed OUTPATIENT CLERK: No Patient History Past Medical History: see triage record Reviewed Nursing Documentation: PMH: Agreed; PSxH: Agreed Nursing Documentation-PMH Hx Cardiac Problems: No Hx Cancer: No Hx Gastrointestinal Problems: Yes Hx Neurological Problems: No Review of Systems All Other Systems: negative except mentioned in HPI Physical Exam Vital Signs Date Time Temp Pulse Resp B/P (MAP) Pulse Ox O2 Delivery O2 Flow Rate FiO2 09/01/19 16:01 98.2 86 20 130/84 (99) 98 Room Air Sp02 EP Interpretation: reviewed, normal General Appearance: no apparent distress Head: normocephalic, atraumatic Eyes: bilateral eye PERRL, bilateral eye EOMI ENT: EOM grossly intact, dry mucus membranes Neck: supple, no meningismus Respiratory: lungs clear, no respiratory distress, no retraction Cardiovascular #1: regular rate, rhythm Gastrointestinal: other - Pouch in the right lower abdomen present mild erythema surrounding tender on palpation catheter in place Genitourinary: no CVA tenderness Musculoskeletal: normal inspection Neurologic: alert, oriented x3 Psychiatric: normal inspection Skin: other - As above Lymphatic: no adenopathy Medical Decision Making Diagnostic Impression: Primary Impression: bowie pouch fistula ER Course Multiple differentials and consideration including but not limited to cellulitis , abscess, fistula Patient has initial blood work and IV hydration initiated patient is complex requiring Further specialty consultation regarding further antibiotics he has just finished a course of antibiotics Patient also will be having more specialized imaging as inpatient and admitted for further care Labs Test 09/01/19 16:20 White Blood Count 6.8 K/UL (4.8-10.8) Red Blood Count 5.03 M/UL (4.70-6.10) Hemoglobin 14.6 G/DL (14.2-18.0) Hematocrit 46.6 % (42.0-52.0) Mean Corpuscular Volume 93 FL (80-99) Mean Corpuscular Hemoglobin 29.1 PG (27.0-31.0) Mean Corpuscular Hemoglobin Concent 31.4 G/DL (32.0-36.0) Red Cell Distribution Width 11.9 % (11.6-14.8) Platelet Count 237 K/UL (150-450) Mean Platelet Volume 8.0 FL (6.5-10.1) Neutrophils (%) (Auto) 56.2 % (45.0-75.0) Lymphocytes (%) (Auto) 26.1 % (20.0-45.0) Monocytes (%) (Auto) 10.2 % (1.0-10.0) Eosinophils (%) (Auto) 5.3 % (0.0-3.0) Basophils (%) (Auto) 2.2 % (0.0-2.0) Prothrombin Time 10.5 SEC (9.30-11.50) Prothromb Time International Ratio 0.9 (0.9-1.1) Activated Partial Thromboplast Time 24 SEC (23-33) Urine Color Yellow Urine Appearance Clear Urine pH 6 (4.5-8.0) Urine Specific [place] 1.020 (1.005-1.035) Urine Protein 1+ (NEGATIVE) Urine Glucose (UA) Negative (NEGATIVE) Urine Ketones 1+ (NEGATIVE) Urine Blood 1+ (NEGATIVE) Urine Nitrite Negative (NEGATIVE) Urine Bilirubin Negative (NEGATIVE) Urine Urobilinogen Normal MG/DL (0.0-1.0) Urine Leukocyte Esterase 1+ (NEGATIVE) Urine RBC 5-10 /HPF (0 - 0) Urine WBC 2-4 /HPF (0 - 0) Urine Squamous Epithelial Cells None /LPF (NONE/OCC) Urine Bacteria Occasional /HPF (NONE) Sodium Level 141 MMOL/L (136-145) Potassium Level 3.5 MMOL/L (3.5-5.1) Chloride Level 103 MMOL/L (98-107) Carbon Dioxide Level 29 MMOL/L (21-32) Anion Gap 9 mmol/L (5-15) Blood Urea Nitrogen 14 mg/dL (7-18) Creatinine 1.1 MG/DL (0.55-1.30) Estimat Glomerular Filtration Rate > 60 mL/min (>60) Glucose Level 97 MG/DL (74-106) Calcium Level 9.1 MG/DL (8.5-10.1) Total Bilirubin 0.3 MG/DL (0.2-1.0) Aspartate Amino Transf (AST/SGOT) 18 U/L (15-37) Alanine Aminotransferase (ALT/SGPT) 23 U/L (12-78) Alkaline Phosphatase 109 U/L (46-116) Total Creatine Kinase 43 U/L (26-308) Total Protein 7.5 G/DL (6.4-8.2) Albumin 3.9 G/DL (3.4-5.0) Globulin 3.6 g/dL Albumin/Globulin Ratio 1.1 (1.0-2.7) Lipase 144 U/L (73-393) Last Vital Signs Date Time Temp Pulse Resp B/P (MAP) Pulse Ox O2 Delivery O2 Flow Rate FiO2 09/01/19 16:31 86 20 Room Air 09/01/19 16:31 98.2 130/84 98 Status: improved Disposition: ADMITTED INPATIENT Condition: Serious Danyel Lowe DO Sep 01, 2019 16:55
[2019-09-01 16:59] LABS: ALANINE AMINOTRANSFERASE 23 U/L (12-78); ALBUMIN 3.9 G/DL (3.4-5.0); ALBUMIN/GLOBULIN RATIO 1.1 (1.0-2.7); ALKALINE PHOSPHATASE 109 U/L (46-116); ASPARTATE AMINO TRANSFERASE 18 U/L (15-37); BILIRUBIN,TOTAL 0.3 MG/DL (0.2-1.0); CREATINE KINASE 43 U/L (26-308); INR 0.9 (0.9-1.1)
[2019-09-01 17:30] VITALS: BP 121/87
[2019-09-01] MEDS ORDERED: Zolpidem 5mg tab ORAL PRN (17:30)
[2019-09-01] MEDS ORDERED: COMBIGAN EYE DRO5 ML LEFT EYE (17:33)
[2019-09-01] MEDS ORDERED: VITAMIN D32400 UNIT/ PO (17:33)
[2019-09-01] MEDS ORDERED: LOTEMAX1 DROP LEFT EYE (17:33)
[2019-09-01] MEDS ORDERED: VITAMIN B-12500 MC3 SL (17:33)
[2019-09-01] MEDS: D5 1/2NS w/KCl 20mEq 1,000 ML IV SCH (18:41)
[2019-09-01 20:00] VITALS: BP 104/76
[2019-09-01] MEDS: COMBIGAN OPHTHALM SCH (20:36)
--- NOTE | 2019-09-01 21:13 | Diagnostic Imaging Report ---
Indication: Chest pain Technique: One view of the chest Comparison: 01/07/2019 Findings: One or 2 nodular opacities, each measuring about 1 cm diameter, are seen at the right lung base. The remainder the lungs and pleural spaces are clear. The heart size is normal. Impression: One or possibly 2 right basilar nodules. Consider further follow-up with CT scan. There are no acute process otherwise Findings discussed by phone with Dr. Lowe in the emergency room at the time of interpretation
[2019-09-02] VITALS: BP 93/58
[2019-09-02 04:00] VITALS: BP 100/62
[2019-09-02] MEDS: D5 1/2NS w/KCl 20mEq 1,000 ML IV SCH ×3 (04:16→23:31)
[2019-09-02 05:55] LABS: BASOPHILS % (AUTO) 1.4 % (0.0-2.0); EOSINOPHILS % (AUTO) 7.9 % (0.0-3.0); HEMATOCRIT 38.1 % (42.0-52.0); HEMOGLOBIN 13.4 G/DL (14.2-18.0); LYMPHOCYTES % (AUTO) 25.4 % (20.0-45.0); MEAN CORPUSCULAR VOLUME 85 FL (80-99); MONOCYTES % (AUTO) 8.9 % (1.0-10.0); NEUTROPHILS % (AUTO) 56.4 % (45.0-75.0); PLATELET COUNT 190 K/UL (150-450); RED BLOOD COUNT 4.49 M/UL (4.70-6.10); RED CELL DISTRIBUTION WIDTH 10.4 % (11.6-14.8)
[2019-09-02 06:32] LABS: ALANINE AMINOTRANSFERASE 21 U/L (12-78); ALBUMIN 3.1 G/DL (3.4-5.0); ALBUMIN/GLOBULIN RATIO 1.1 (1.0-2.7); ALKALINE PHOSPHATASE 79 U/L (46-116); ANION GAP 7 mmol/L (5-15); ASPARTATE AMINO TRANSFERASE 16 U/L (15-37); BILIRUBIN,TOTAL 0.6 MG/DL (0.2-1.0); BLOOD UREA NITROGEN 9 mg/dL (7-18); CALCIUM 8.8 MG/DL (8.5-10.1); CARBON DIOXIDE 26 MMOL/L (21-32); CHLORIDE 109 MMOL/L (98-107); FERRITIN 297 NG/ML (8-388); POTASSIUM 4.4 MMOL/L (3.5-5.1); SODIUM 142 MMOL/L (136-145)
[2019-09-02 07:10] LABS: % IRON SATURATION 66 % (15-50); IRON 164 ug/dL (50-175); TOTAL IRON BINDING CAPACITY 247 ug/dL (250-450)
[2019-09-02 08:00] VITALS: BP 111/74
[2019-09-02] MEDS ORDERED: Omnipaque-300 100ml vial INJ PRN (08:15)
--- NOTE | 2019-09-02 08:34 | General Progress Note ---
Progress Note Progress Note Admitted for persistent, recurring peristomal infections and incontinence involving his Quevedo Continent Ileostomy stoma. He has required multiple courses of Cipro and Clindamycin since surgery December 2018 for stoma revision. He develops peristomal pain, swelling and induration and cellulitis. Latest episode only resolved after 7 days of treatment After the infection resolves, he intubates without difficulty and has no incontinence. 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
[2019-09-02] MEDS: LOTEMAX OPHTHALM SCH (09:13)
[2019-09-02 12:00] VITALS: BP 115/71
--- NOTE | 2019-09-02 13:00 | Pre-op HX & Phy Repo 2 SIG ---
DATE OF ADMISSION: 09/01/2019 EMERGENCY ADMISSION HISTORY AND PHYSICAL Admitted from the emergency room on the evening of 09/01/2019. 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 The patient has a past history of ulcerative colitis and has undergone multiple abdominal operations including total colectomy, ileoanal J-pouch, resection of failed J-pouch with Quevedo pouch and additional operations all of which will be listed at the end of this dictation. His most recent surgery was 01/08/2019 at [facility] with laparotomy with revision of Quevedo continent ileostomy pouch valve and revision of stoma and access segment. All his prior operations had been in other states. After the surgery in December 2018, he started having episodes of peristomal infection with pain, swelling around the stoma, and erythema and tenderness and induration. Each episode which was treated with antibiotics; initially, Bactrim, then Cipro and clindamycin, but he has continued to require multiple courses. It takes now a week of treatment before the symptoms and findings resolve and once he stops antibiotics within several weeks he has another episode of pain and inflammation with gas and stool ending from the stoma. He has not had any difficulty intubating. He has used stents in the past. PAST MEDICAL HISTORY: . MEDICATIONS: Only eyedrops. ALLERGIES: Penicillin. OPERATIONS: In addition to the abdominal intestinal surgery, he underwent thyroidectomy in 1996. PHYSICAL EXAMINATION: VITAL SIGNS: The patient is 5 feet 9 inches, 158 pounds, which is a stable weight. His vital signs are within normal limits. He is in no distress. He just concluded a course of antibiotics. HEENT: Within normal limits. LUNGS: Clear. HEART: Regular rhythm. BREASTS: Without masses. ABDOMEN: Soft and flat. There is a long midline scar. The stoma of the Quevedo pouch is low in the right lower quadrant. We have inserted a 30-Ugandan silicone catheter to continuous gravity drainage. The tissues are soft and nontender as he has just completed a course of oral antibiotics again. There is no evidence of abdominal wall hernia. GENITOURINARY: Testes and scrotum within normal limits. RECTAL: Status post proctectomy. EXTREMITIES: Without edema. Pulses 3+ femoral to pedal bilaterally. NEUROLOGIC: Physiologic. IMPRESSION: 1. 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 2. History of ulcerative colitis. 3. Status post thyroidectomy. 4. STATUS POST MULTIPLE ABDOMINAL OPERATIONS: 4.1. Total colectomy with ileoanal J-pouch in 1989. 4.2. Ileostomy in 2013. 4.3. Quevedo continent ileostomy and resection of failed J-pouch with abdomino-perineal proctectomy in November 2014 in [place]. 4.4. Revision of valve, stoma and access segment in [place], 04/12/2018. 4.5. Laparotomy with revision of Quevedo continent ileostomy valve, stoma and access segment in 01/08/2019. PLAN: The patient will be admitted with intravenous fluids, continuous drainage of his continent ileostomy pouch and evaluation started to better define the fistula to prepare for surgery. He will require a CT scan of abdomen and pelvis with oral and IV contrast. He will undergo a pouchogram x-ray and a pouch endoscopy. If his pouch is inflamed and ulcerated, then he may require medical treatment deferring surgery to a later time with topical treatment with mesalamine nightly. If his pouch is noninflamed, he will then require surgical correction with fistula likely creating a new valve and stoma with likely or possible relocation to the left side of the abdomen. At this time, he is stable in terms of no signs of acute infection. Cedrick Juarez M.D. DR: MARIAM JOB#: [id number] CC:
--- NOTE | 2019-09-02 13:34 | Diagnostic Imaging Report ---
Clinical Indication: Persistent recurring peristomal infections and incontinence of port at continent ileostomy Technique: Patient ingested oral contrast. IV administration nonionic contrast. Venous phase spiral acquisition obtained through the abdomen and pelvis. Multiplanar reconstructions were generated. Total dose length product 240 mGycm. CTDIvol(s) 4 mGy. Dose reduction achieved using automated exposure control Comparison: none Findings: There is a continent ileostomy reservoir. This has a Trevino catheter, tip of which is positioned deep within the reservoir and well beyond the nipple. Ingested contrast is seen within the reservoir as well as within the lumen of the Trevino catheter. The distal esophagus, stomach, duodenum are unremarkable. No significant small bowel distention is evident. No peristomal inflammation is evident. Normal abnormal peristomal gas or fluid collections are evident. No unusual intraperitoneal gas or fluid collections are evident. Prominent mesenteric lymph nodes are demonstrated. Minimal linear stranding is seen within the fat adjacent to the reservoir and cephalad to the bladder. The liver, gallbladder, bile ducts, pancreas, spleen, adrenals, kidneys are unremarkable. No renal or ureteral calculi, hydronephrosis, or hydroureter demonstrated. The bladder is unremarkable. The prostate is enlarged. The included lung bases demonstrate some atelectasis and/or scarring at the periphery of the right lower lobe. Minimal atelectasis or scarring is also seen in the left posterior costophrenic sulcus. The bones demonstrate degenerative spondylosis changes. Impression: Postsurgical changes, as described. No evidence of small bowel obstruction or complications of prior surgery demonstrated. No unusual fluid collections, no peristomal abnormality. No findings to explain stated clinical history of enterocutaneous fistula.. Nonspecific prominent regional mesenteric lymph nodes Prostatomegaly Basilar atelectasis and/or scarring Minimal degenerative spondylosis The CT scanner at [facility] is accredited by the [employer] and the scans are performed using protocols designed to limit radiation exposure to as low as reasonably achievable to attain images of sufficient resolution adequate for diagnostic evaluation.
[2019-09-02 16:00] VITALS: BP 110/68
[2019-09-02 20:00] VITALS: BP 109/70
[2019-09-02] MEDS: COMBIGAN OPHTHALM SCH (20:49)
[2019-09-02] MEDS ORDERED: NS Irrig 1000ml ONE (22:36)
[2019-09-03] VITALS: BP 90/60
[2019-09-03 04:00] VITALS: BP 103/67
[2019-09-03 06:33] LABS: BASOPHILS % (AUTO) 1.1 % (0.0-2.0); EOSINOPHILS % (AUTO) 5.6 % (0.0-3.0); HEMATOCRIT 38.8 % (42.0-52.0); HEMOGLOBIN 13.9 G/DL (14.2-18.0); MEAN CORPUSCULAR VOLUME 85 FL (80-99); MONOCYTES % (AUTO) 8.2 % (1.0-10.0); NEUTROPHILS % (AUTO) 65.1 % (45.0-75.0); PLATELET COUNT 217 K/UL (150-450); RED BLOOD COUNT 4.56 M/UL (4.70-6.10); RED CELL DISTRIBUTION WIDTH 10.6 % (11.6-14.8); WHITE BLOOD COUNT 5.2 K/UL (4.8-10.8)
[2019-09-03 06:50] LABS: ALANINE AMINOTRANSFERASE 19 U/L (12-78); ALBUMIN 3.2 G/DL (3.4-5.0); ALBUMIN/GLOBULIN RATIO 1.1 (1.0-2.7); ALKALINE PHOSPHATASE 81 U/L (46-116); ANION GAP 7 mmol/L (5-15); ASPARTATE AMINO TRANSFERASE 16 U/L (15-37); BILIRUBIN,TOTAL 0.6 MG/DL (0.2-1.0); BLOOD UREA NITROGEN 5 mg/dL (7-18); CALCIUM 8.8 MG/DL (8.5-10.1); CARBON DIOXIDE 29 MMOL/L (21-32); CHLORIDE 108 MMOL/L (98-107); CREATININE 1.1 MG/DL (0.55-1.30); PHOSPHORUS 2.9 MG/DL (2.5-4.9); POTASSIUM 4.3 MMOL/L (3.5-5.1); SODIUM 144 MMOL/L (136-145)
[2019-09-03 08:00] VITALS: BP 110/73
--- NOTE | 2019-09-03 09:11 | General Progress Note ---
Progress Note Progress Note AVSS Peristomal tissues remain normal with indwelling Quevedo pouch catheter to drainage. Hgb 13.9 albumin 3.2 Imp: Probable Quevedo pouch fistula collar to access segment/stoma Plan; Quevedo pouch endoscopy today Cedrick Juarez MD Sep 03, 2019 09:11
--- NOTE | 2019-09-03 09:12 | Pre-Procedure Note/Attestation ---
Pre-Procedure Note/Attestation Complete Prior to Procedure Planned Procedure: not applicable Procedure Narrative: Emy continent ileostomy pouch endoscopy Indications for Procedure Pre-Operative Diagnosis: Recurring peristomal infections possible fistula Attestation I attest that I discussed the nature of the procedure; its benefits; risks and complications; and alternatives (and the risks and benefits of such alternatives ), prior to the procedure, with the patient (or the patient's legal education courses sales representative). I attest that, if there was a reasonable possibility of needing a blood transfusion, the patient (or the patient's legal education courses sales representative) was given the [facility] standardized written summary, pursuant to the Mehran Heidi Blood Safety Act ([place] Health and Safety Code # 1645, as amended). I attest that I re-evaluated the patient just prior to the surgery and that there has been no change in the patient's H&P, except as documented below: none Cedrick Juarez MD Sep 03, 2019 09:12
[2019-09-03] MEDS: LOTEMAX OPHTHALM SCH (09:30)
[2019-09-03] MEDS: D5 1/2NS w/KCl 20mEq 1,000 ML IV SCH (10:13)
--- NOTE | 2019-09-03 11:25 | Brief Operative Note ---
Immediate Post Operative Note Operative Note Pre-op Diagnosis: Recurring peristomal infections possible fistula Procedure: Quevedo continent ileostomy pouch endoscopy Post-op Diagnosis: Inflammation and ulcerations around base of the valve Post-op Diagnosis: same as pre-op Findings: consistent w/pre-op dx studies Surgeon: froy Anesthesia: other - none Specimen: none Complications: none Condition: stable Fluids: none Estimated Blood Loss: none Drains: other - 28 Trevino to Quevedo pouch Implant(s) used?: No Cedrick Juarez MD Sep 03, 2019 11:25
[2019-09-03 12:00] VITALS: BP 110/75
[2019-09-03 16:00] VITALS: BP 112/72
--- NOTE | 2019-09-03 18:01 | Procedure Note ---
DATE OF PROCEDURE: 09/03/2019 ENDOSCOPIST: Cderick Juarez MD. ANESTHESIA: None. SEDATION: None. PRE-ENDOSCOPY DIAGNOSES: 1. Malfunctioning Quevedo continent ileostomy with recurring peristomal infection and incontinence. 2. History of ulcerative colitis. 3. Status post multiple abdominal operations including total colectomy with ileoanal J-pouch in 1989, ileostomy in 2013, resection of failed J-pouch with abdominoperineal proctectomy and creation of Quevedo continent ileostomy in November 2014 in [place], followed by revision of the valve stoma and access segment in [place] on April 12, 2018, and here at [place], revision of the valve stoma and access for retracted stoma on January 08, 2019, with finding of severe adhesions. POST-ENDOSCOPY DIAGNOSES: 1. Malfunctioning Quevedo continent ileostomy with recurring peristomal infection and incontinence. 2. History of ulcerative colitis. 3. Status post multiple abdominal operations including total colectomy with ileoanal J-pouch in 1989, ileostomy in 2013, resection of failed J-pouch with abdominoperineal proctectomy and creation of Quevedo continent ileostomy in November 2014 in [place], followed by revision of the valve stoma and access segment in [place] on April 12, 2018, and here at [place], revision of the valve stoma and access for retracted stoma on January 08, 2019, with finding of severe adhesions. ENDOSCOPY PERFORMED: Quevedo continent ileostomy pouch endoscopy. FINDINGS: Inflammation and ulcerations surrounding the base of the nipple valve. The valve was well formed. The pouch otherwise was normal. DESCRIPTION OF PROCEDURE: The patient was positioned supine in the GI lab without any anesthesia or sedation given or required. Using a GIF-P140 endoscope, the stoma was entered and the distance to the tip of the valve was 11 to 12 cm. The pouch was distensible. Retroflexed views revealed that the nipple valve was circumferentially well-formed, but there were ulcerations and inflammation around the valve. There was no remaining suture material from prior operations done in [place]. Withdrawal views did not reveal a fistula tract opening, but it may be very small as with a micro-fistula. After removing the endoscope, I was able to readily insert a 28-Cambodian Trevino catheter into the pouch to evacuate gas and liquid. It was taped to the skin and connected to gravity drainage bag. The patient will go on a course of medical management instilling mesalamine solution every night after his last intubation. The patient tolerated the endoscopy well. Cedrick Juarez M.D. DR: Chago JOB#: [id number] CC:
[2019-09-03] MEDS ORDERED: NS Irrig 1000ml ONE (18:33)
[2019-09-03 20:00] VITALS: BP 108/66
[2019-09-03] MEDS: Mesalamine Enema 4gm/60ml RECTAL SCH (21:00)
[2019-09-03] MEDS: COMBIGAN OPHTHALM SCH (21:01)
[2019-09-04] VITALS: BP 107/70
[2019-09-04 04:00] VITALS: BP 111/61
[2019-09-04 08:00] VITALS: BP 105/68
[2019-09-04] MEDS: LOTEMAX OPHTHALM SCH (09:56)
--- NOTE | 2019-09-04 10:49 | General Progress Note ---
Progress Note Progress Note AVSS Tolerating BCIR diet but having large volume ileo output and watery. and having incontinence of stool on the stoma bandage Abdomen soft, flat, non-tender Urine 1150 BCIR ileo 1540 Imp: Bacterial overgrowth enteritis/pouchitis r/o c. diff enteritis Plan: Stool for c. diff STAT Flagyl 250mg po TID f/u I&O and am labs continue RN supervised BCIR self-intubations Cedrick Juarez MD Sep 04, 2019 10:49
[2019-09-04 12:00] VITALS: BP 117/76
[2019-09-04] MEDS: metroNIDAZOLE 250mg tab ORAL SCH ×2 (13:39→18:50)
[2019-09-04 16:00] VITALS: BP 126/93
[2019-09-04 20:00] VITALS: BP 105/72
[2019-09-04] MEDS: Mesalamine Enema 4gm/60ml RECTAL SCH (22:08)
[2019-09-04] MEDS: COMBIGAN OPHTHALM SCH (22:08)
[2019-09-05 04:00] VITALS: BP 102/72
[2019-09-05 06:59] LABS: ALANINE AMINOTRANSFERASE 38 U/L (12-78); ALBUMIN 3.3 G/DL (3.4-5.0); ALKALINE PHOSPHATASE 120 U/L (46-116); ANION GAP 9 mmol/L (5-15); ASPARTATE AMINO TRANSFERASE 20 U/L (15-37); BILIRUBIN,TOTAL 0.2 MG/DL (0.2-1.0); BLOOD UREA NITROGEN 13 mg/dL (7-18); CALCIUM 9.1 MG/DL (8.5-10.1); CARBON DIOXIDE 27 MMOL/L (21-32); CHLORIDE 104 MMOL/L (98-107); CREATININE 1.3 MG/DL (0.55-1.30); POTASSIUM 3.8 MMOL/L (3.5-5.1); SODIUM 139 MMOL/L (136-145)
[2019-09-05 07:13] LABS: BASOPHILS % (AUTO) 0.8 % (0.0-2.0); EOSINOPHILS % (AUTO) 4.2 % (0.0-3.0); HEMATOCRIT 40.4 % (42.0-52.0); HEMOGLOBIN 13.5 G/DL (14.2-18.0); LYMPHOCYTES % (AUTO) 13.4 % (20.0-45.0); MEAN CORPUSCULAR VOLUME 91 FL (80-99); MONOCYTES % (AUTO) 7.9 % (1.0-10.0); NEUTROPHILS % (AUTO) 73.7 % (45.0-75.0); PLATELET COUNT 184 K/UL (150-450); RED BLOOD COUNT 4.45 M/UL (4.70-6.10); RED CELL DISTRIBUTION WIDTH 10.4 % (11.6-14.8); WHITE BLOOD COUNT 7.9 K/UL (4.8-10.8)
[2019-09-05 08:00] VITALS: BP 99/73
--- NOTE | 2019-09-05 08:59 | General Progress Note ---
Progress Note Progress Note AVSS High volume ileostomy output with some incontinence and resulting skin irritation Abdomen soft po intake 100% BCIR diet with 2800cc po fluids Urine 1875 BCIR ileo 1900 C. diff negative WBC 7800 Hgb 13.6 BUN 13 Cr up 1.3 albumin 3.3 Imp: High volume ileostomy output with rising serum creatinine Plan: NS 100cc/h x 1 liter change flagyl (not tolerated well) to Clindamycin 300mg po TID f/u labs Cedrick Juarez MD Sep 05, 2019 08:59
[2019-09-05] MEDS ORDERED: Vitamin A&D ud Packet TOPIC PRN (09:15)
[2019-09-05] MEDS: Clindamycin 150mg cap ORAL SCH ×3 (09:31→18:10)
[2019-09-05] MEDS: LOTEMAX OPHTHALM SCH (09:32)
[2019-09-05] MEDS: Vitamin A&D Oint Tube TOPIC PRN (09:54)
[2019-09-05 12:00] VITALS: BP 118/68
[2019-09-05 16:31] VITALS: BP 107/73
[2019-09-05 20:00] VITALS: BP 110/76
[2019-09-05] MEDS: COMBIGAN OPHTHALM SCH (21:33)
[2019-09-05] MEDS: Mesalamine Enema 4gm/60ml RECTAL SCH (23:05)
[2019-09-06] VITALS: BP 95/57
[2019-09-06 04:00] VITALS: BP 110/75
[2019-09-06 05:57] LABS: EOSINOPHILS % (AUTO) 5.9 % (0.0-3.0); HEMATOCRIT 39.4 % (42.0-52.0); HEMOGLOBIN 13.1 G/DL (14.2-18.0); LYMPHOCYTES % (AUTO) 16.1 % (20.0-45.0); MEAN CORPUSCULAR VOLUME 90 FL (80-99); MONOCYTES % (AUTO) 9.1 % (1.0-10.0); NEUTROPHILS % (AUTO) 67.9 % (45.0-75.0); PLATELET COUNT 168 K/UL (150-450); RED BLOOD COUNT 4.36 M/UL (4.70-6.10); RED CELL DISTRIBUTION WIDTH 10.4 % (11.6-14.8)
[2019-09-06 06:25] LABS: ALANINE AMINOTRANSFERASE 26 U/L (12-78); ALBUMIN 3.1 G/DL (3.4-5.0); ALKALINE PHOSPHATASE 90 U/L (46-116); ANION GAP 9 mmol/L (5-15); ASPARTATE AMINO TRANSFERASE 18 U/L (15-37); BILIRUBIN,TOTAL 0.6 MG/DL (0.2-1.0); BLOOD UREA NITROGEN 13 mg/dL (7-18); CALCIUM 8.6 MG/DL (8.5-10.1); CARBON DIOXIDE 27 MMOL/L (21-32); CHLORIDE 107 MMOL/L (98-107); CREATININE 1.2 MG/DL (0.55-1.30); SODIUM 143 MMOL/L (136-145)
[2019-09-06 08:00] VITALS: BP 93/65
[2019-09-06] MEDS: Clindamycin 150mg cap ORAL SCH ×3 (08:24→21:53)
[2019-09-06] MEDS: LOTEMAX OPHTHALM SCH (08:24)
--- NOTE | 2019-09-06 08:45 | General Progress Note ---
Progress Note Progress Note AVSS Still having watery output and incontinence despite intubating frequently and on Clindamycin Abdomen soft, peristomal tissues normal. Slight skin irritation labs all stable after IV fluids yesterday/overnight Urine 2195 BCIR ileo 1525 still watery Imp: Bacterial overgrowth enteritis/pouchitis Plan: Add Cipro 500mg po q12h to Clindamycin Cedrick Juarez MD Sep 06, 2019 08:45
[2019-09-06] MEDS: Ciprofloxacin 500mg tab ORAL SCH ×2 (09:17→21:52)
[2019-09-06 12:00] VITALS: BP 93/64
[2019-09-06 16:00] VITALS: BP 100/83
[2019-09-06 20:00] VITALS: BP 97/56
[2019-09-06] MEDS: COMBIGAN OPHTHALM SCH (21:52)
[2019-09-06] MEDS: Mesalamine Enema 4gm/60ml RECTAL SCH (21:53)
[2019-09-07] VITALS: BP 102/62
[2019-09-07 04:00] VITALS: BP 101/65
[2019-09-07] MEDS: Clindamycin 150mg cap ORAL SCH (06:07)
[2019-09-07 08:00] VITALS: BP 105/70
[2019-09-07] MEDS: Ciprofloxacin 500mg tab ORAL SCH (09:06)
[2019-09-07] MEDS: LOTEMAX OPHTHALM SCH (09:06)
--- NOTE | 2019-09-07 10:03 | General Progress Note ---
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
[2019-09-07 12:00] VITALS: BP 100/64
[2019-09-07 16:00] VITALS: BP 121/66
[2019-09-07] MEDS ORDERED: NS Irrig 1000ml ONE ×2 (17:46→17:50)
[2019-09-07 20:00] VITALS: BP 111/68
[2019-09-07] MEDS: COMBIGAN OPHTHALM SCH (20:19)
[2019-09-07] MEDS: Mesalamine Enema 4gm/60ml RECTAL SCH (20:19)
[2019-09-07] MEDS: Vitamin A&D Oint Tube TOPIC PRN (22:00)
[2019-09-08] VITALS: BP 110/75
[2019-09-08 06:18] LABS: EOSINOPHILS % (AUTO) 4.7 % (0.0-3.0); HEMOGLOBIN 12.4 G/DL (14.2-18.0); LYMPHOCYTES % (AUTO) 16.5 % (20.0-45.0); MEAN CORPUSCULAR VOLUME 94 FL (80-99); NEUTROPHILS % (AUTO) 66.7 % (45.0-75.0); PLATELET COUNT 188 K/UL (150-450); RED BLOOD COUNT 4.04 M/UL (4.70-6.10); RED CELL DISTRIBUTION WIDTH 11.5 % (11.6-14.8); WHITE BLOOD COUNT 6.2 K/UL (4.8-10.8)
[2019-09-08 06:55] LABS: ALANINE AMINOTRANSFERASE 28 U/L (12-78); ALKALINE PHOSPHATASE 93 U/L (46-116); ANION GAP 7 mmol/L (5-15); ASPARTATE AMINO TRANSFERASE 18 U/L (15-37); BILIRUBIN,TOTAL 0.4 MG/DL (0.2-1.0); BLOOD UREA NITROGEN 10 mg/dL (7-18); CALCIUM 8.5 MG/DL (8.5-10.1); CARBON DIOXIDE 27 MMOL/L (21-32); CHLORIDE 108 MMOL/L (98-107); CREATININE 1.1 MG/DL (0.55-1.30); PHOSPHORUS 3.1 MG/DL (2.5-4.9); POTASSIUM 3.9 MMOL/L (3.5-5.1); SODIUM 142 MMOL/L (136-145)
[2019-09-08 08:00] VITALS: BP 110/73
[2019-09-08] MEDS: LOTEMAX OPHTHALM SCH (09:17)
--- NOTE | 2019-09-08 10:42 | General Progress Note ---
Progress Note Progress Note AVSS Now on Rifaximin 550mg po q8h and mesalamine into pouch qhs Quevedo pouch ileo output is thicker and decreased volume 1465cc/24 hours labs okay with albumin 3.0 abdomen soft Imp: Improving Plan; maintain indwelling Quevedo pouch catheter to continuous drainage continue current regimen anticipate starting self-intubations in AM and discharge 2-3 days Cedrick Juarez MD Sep 08, 2019 10:42
[2019-09-08 12:00] VITALS: BP 109/70
[2019-09-08 16:00] VITALS: BP 101/60
[2019-09-08 20:00] VITALS: BP 97/64
[2019-09-08] MEDS: COMBIGAN OPHTHALM SCH (21:09)
[2019-09-08] MEDS: Mesalamine Enema 4gm/60ml RECTAL SCH (21:09)
[2019-09-09] VITALS: BP 105/65
[2019-09-09 08:00] VITALS: BP 106/74
--- NOTE | 2019-09-09 08:28 | General Progress Note ---
Progress Note Progress Note AVSS BCIR ileostomy output much improved with Xifaxan. Abdomen soft Urine 2190 BCIR ileo 1340 and thicker Imp: Improved on Xifaxan and mesalamine Plan; RN supervised BCIR self-intubation q3h am to hs and prn continue I&O Cedrick Juarez MD Sep 09, 2019 08:28
[2019-09-09] MEDS: LOTEMAX OPHTHALM SCH (09:00)
[2019-09-09 12:00] VITALS: BP 115/78
[2019-09-09 16:00] VITALS: BP 109/64
[2019-09-09 20:00] VITALS: BP 100/65
[2019-09-09] MEDS: Mesalamine Enema 4gm/60ml RECTAL SCH (21:07)
[2019-09-09] MEDS: COMBIGAN OPHTHALM SCH (21:07)
[2019-09-10] VITALS (7 sets, daily range): BP systolic 102–128; BP diastolic 64–79
--- NOTE | 2019-09-10 09:03 | General Progress Note ---
Progress Note Progress Note AVSS Intubating q3h (overnight prn) and doing well with no incontinence, eating well Abdomen soft, stoma without stool leaking Urine 2049 BCIR ileo 1625 thicker consistency Imp: doing well with mesalamine qhs into Quevedo pouch and Xifaxan 550mg q8h Plan: continue current regimen Discharge in AM Rx Rifaximin 550mg #30 TID Rowasa rectal enema suspension #28 Full supplies, instructions, limitations and meds provided and discussed F/U office 09/14 and prn Cedrick Juarez MD Sep 10, 2019 09:03
[2019-09-10] MEDS: LOTEMAX OPHTHALM SCH (09:33)
[2019-09-10] MEDS: Mesalamine Enema 4gm/60ml RECTAL SCH (20:57)
[2019-09-10] MEDS: COMBIGAN OPHTHALM SCH (20:57)
--- NOTE | 2019-09-14 12:26 | Discharge Summary ---
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 The patient with a past history of ulcerative colitis and has undergone multiple abdominal operations, including total colectomy, ileoanal J-pouch, resection of failed J-pouch with Quevedo pouch as well as additional operations ( noted in H&P) His most recent surgery was 01/08/2019 at [facility] with laparotomy with revision of Quevedo continent ileostomy pouch valve and revision of stoma and access segment. All his prior operations had been in other states. After the surgery in December 2018, he started having episodes of peristomal infection with pain, swelling around the stoma, and erythema and tenderness and induration. Each episode was treated with antibiotics; initially, Bactrim, then Cipro and clindamycin, but he continued to require multiple courses. It takes recently a week of treatment before the symptoms and findings resolved , and once he stopped antibiotics within several weeks he had another episode of pain and inflammation with gas and stool from the stoma. He did not had any difficulty intubating his stoma. Procedures s/p 09/03/[address] Larry Quevedo continent ileostomy pouch endoscopy Hospital Course patient admitted and started on the IV fluids continuous drainage of continent ileostomy pouch was maintained patient undergone CT scan of abdomen and pelvis with oral and IV contrast , which revealed postsurgical changes. no evidence of small bowel obstruction or complication of prior surgery no unusual fluid collection no peristomal abnormality no findings to explain stated clinical history of enterocutaneous fistula prostatomegaly nonspecific prominent regional mesenteric lymph nodes patient subsequently undergone on 09/02 Emy continent ileostomy pouch endoscopy , which revealed inflammation and ulceration, surrounding the base of the nipple valve the valve was well formed the pouch also otherwise was normal the patient tolerated procedure well laboratory along with intake and output were closely monitored patient started on Flagyl stool for C. difficile was collected to rule out C. difficile enteritis, and was negative patient noted to have high volume ileostomy output with rising serum creatinine patient received IV of normal saline Flagyl was changed to clindamycin to complete the course, as patient did not tolerate Flagyl well patient continued to have watery output and incontinence, despite intubating frequently and being on clindamycin ciprofloxacin was added to clindamycin BCIR pouch catheter was maintained to continuous gravity drainage Cipro and clindamycin were discontinued since patient did not have a good response to this antibiotics, likely due to prior use patient started on Rifaximin labs were closely followed along with intake and output patient was improving clinically on rifaximin patient was started in am 09/07 on RN supervised self intubation q 3 hrs am to hs and as needed patient was doing well with self intubation patient was doing well with mesalamine at night into Quevedo pouch and Rifaximin 550 mg every 8 hours patient will need to continue rifaximin as outpatient prescription provided fot Rifaximin and Rowasa rectal enema suspension Full supplies/instructions/limitation / medication provided and discussed Patient to follow-up in the office on 09/14 and as needed FINAL DIAGNOSES 1. 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 2. History of ulcerative colitis. 3. Status post thyroidectomy. 4. STATUS POST MULTIPLE ABDOMINAL OPERATIONS: 4.1. Total colectomy with ileoanal J-pouch in 1989. 4.2. Ileostomy in 2013. 4.3. Quevedo continent ileostomy and resection of failed J-pouch with abdomino-perineal proctectomy in November 2014 in [place]. 4.4. Revision of valve, stoma and access segment in [place], 04/12/2018. 4.5. Laparotomy with revision of Quevedo continent ileostomy valve, stoma and access segment in 01/08/2019. 5. Enterocutaneous fistula, involving Quevedo continent ileostomy to stoma with recurring infections and incontinence 6. s/p Quevedo continent ileostomy pouch endoscopy. 7. Treatment resistant pouchitis/bacterial overgrowth enteritis Discharge Medications Continued Medications: Brimonidine Tartrate/Timolol (Combigan Eye Drops) 5 Ml Drops 1 DRP LEFT EYE QHS for UVEITIS (This prescription has been renewed) Cholecalciferol (Vitamin D3) (Vitamin D3) 2,400 Unit/1 Ml Liquid 2000 UNIT PO DAILY for SUPPLEMENT, % (This prescription has been renewed) Cyanocobalamin (Vitamin B-12) (Vitamin B-12) 500 Mcg Tab.subl 2500 MCG SL QOD for SUPPLEMENT, TAB (This prescription has been renewed) Loteprednol Etabonate (Lotemax) 5 Ml Drops.susp 1 DROP LEFT EYE DAILY for UVEITIS, DROP (This prescription has been renewed) Discharge Condition Upon Discharge: stable Discharge Vital Signs Last Vital Signs Date Time Temp Pulse Resp B/P (MAP) Pulse Ox O2 Delivery O2 Flow Rate FiO2 09/10/19 23:50 98.0 66 17 109/66 (80) 98 09/10/19 20:12 Room Air Discharge Disposition Patient was discharged home Discharge Instructions Discharge Instructions Special Instructions I have been assigned to complete a D/C Summary on this account. I was not involved in the patient management Chela Fisher NP Sep 14, 2019 12:26
== END 2019-09-11 05:00 | disposition home or self-care (01) | DRG 394 ==
LOC: EDBEDREQ 16:29 → EMR 17:00 → 3E 17:05
PROC: 0DJ08ZZ Inspection of Upper Intestinal Tract, Via Natural or Artificial Opening Endoscopic (ICD-10-PCS; principal; 2019-09-03 11:05)
DX: K94.13 Enterostomy malfunction (principal); K63.2 Fistula of intestine; K91.850 Pouchitis; K94.12 Enterostomy infection; Y83.3 Surgical operation with formation of external stoma as the cause of abnormal reaction of the patient, or of later complication, without mention of misadventure at the time of the procedure; R15.9 Full incontinence of feces; E89.0 Postprocedural hypothyroidism
CPT/HCPCS: 36415; 71045; 74177; 80053; 81003; 82550; 82607; 82728; 82746; 83540; 83550; 83690; 83735; 84100; 85025; 85610; 85730; 86850; 86900; 86901; 87324; 96360; 99285; J7030

== ENCOUNTER 2019-12-24 09:26 | Inpatient (IN) | payer MEDICARE, BC ==
--- NOTE | 2019-12-23 17:45 | Pre-op HX & Phy Repo 2 SIG ---
DATE OF ADMISSION: 12/25/2019 DATE OF ADMISSION: 12/24/2019. 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 The patient has a past history of ulcerative colitis and has undergone multiple abdominal operations in the past including total colectomy, ileoanal J-pouch, resection of failed J-pouch with Quevedo pouch. Most of the operations were done out of state and all will be listed at the end of this dictation. The most recent surgery was here at [facility] January 08, 2019 involving laparotomy with revision of his Quevedo continent ileostomy pouch valve together with revision of the stoma and access segment due to history of incontinence and stoma stricture. The patient developed difficulties following his surgery in December 2018. Within several months, he had recurring episodes of peristomal infection with pain, swelling and erythema, tenderness, and induration. He was treated with antibiotics, but the episodes recurred. He was hospitalized at the beginning of August 2019 and pouch endoscopy revealed a fistula at the base of the nipple valve. At his surgery in December 2018, there were heavy silk sutures in this area and inflammation, all of which were removed at that time. It was felt that he had a fistula from the evaluation in August and he was treated with medical management including mesalamine suspension flushed into the pouch every night at bedtime with the medications staying all night until he intubated the following morning as well as a full courses of Xifaxan (rifaximin). The fistula and symptoms, peristomal infection, inflammation kept recurring and his stoma was becoming stenotic. He was treated with Cipro and clindamycin, which would resolve the episode within a week or 2 or less, he would require another course of antibiotics. He is being admitted to undergo definitive pouch reconstruction with possible formation of a new valve and stoma with relocation of the stoma with preservation of his Quevedo pouch which is known to have a large capacity. PAST MEDICAL HISTORY/MEDICATIONS: Eyedrops. ALLERGIES: Penicillin. OPERATIONS: In addition to the abdominal intestinal surgery, he underwent thyroidectomy in 1996. PHYSICAL EXAMINATION: The patient is 5 feet 9 inches, approximately 160 pounds. He is arriving from out of state and will be examined upon arrival and dictated separately IMPRESSION: 1. 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 2. History of ulcerative colitis. 3. Status post thyroidectomy. 4. STATUS POST MULTIPLE ABDOMINAL OPERATIONS: 4.1. Total colectomy with ileoanal J-pouch in 1989. 4.2. Ileostomy in 2013. 4.3. Quevedo continent ileostomy and resection of failed ileoanal J-pouch with abdomino-perineal proctectomy, November 2014 in [place]. 4.4. Revision of Quevedo pouch valve, stoma and access segment in [place], April 12, 2018 4.5. Laparotomy with revision of Quevedo continent ileostomy valve, stoma and access segment on 01/08/2019. PLAN: The patient will be admitted with insertion of a dual lumen PICC line, placement of an indwelling pouch catheter into his Quevedo continent ileostomy pouch to continuous drainage. Full preoperative evaluation and preparation for surgery with bowel prep and intravenous hydration and intravenous antibiotics and preoperative subcutaneous heparin. I will have another full discussion in person when the patient arrives from out of state regarding indications, alternatives, options, and risks including bleeding, infection, injury to adjacent structures or organs, deep vein thrombosis despite prophylaxis need to relocate the stoma to the left side of the abdomen, creation of a new valve and stoma with preservation of the pouch and very unlikely likelihood that he would need a conventional ileostomy again. Cedrick Juarez M.D. DR: MARIAM JOB#: [id number] CC:
[~2019-12-24] VITALS: Ht 175.3 cm; Wt 72.0 kg
[~2019-12-24 09:26] MED LIST changes: +CIPROFLOXACIN500 M2 ORAL; +COMBIGAN EYE DRO5 ML LEFT EYE; +LOTEMAX1 DROP LEFT EYE; +VITAMIN B-12500 MC3 SL; +VITAMIN D32400 UNIT/ PO
[2019-12-24 10:00] VITALS: BP 135/81
[2019-12-24] MEDS ORDERED: Zolpidem 5mg tab ORAL PRN (10:00)
[2019-12-24 11:08] LABS: BASOPHILS % (AUTO) 1.1 % (0.0-2.0); EOSINOPHILS % (AUTO) 3.5 % (0.0-3.0); HEMATOCRIT 44.4 % (42.0-52.0); HEMOGLOBIN 15.3 G/DL (14.2-18.0); LYMPHOCYTES % (AUTO) 20.1 % (20.0-45.0); MEAN CORPUSCULAR VOLUME 86 FL (80-99); MONOCYTES % (AUTO) 11.4 % (1.0-10.0); NEUTROPHILS % (AUTO) 63.9 % (45.0-75.0); PLATELET COUNT 236 K/UL (150-450); RED BLOOD COUNT 5.18 M/UL (4.70-6.10); RED CELL DISTRIBUTION WIDTH 11.8 % (11.6-14.8); WHITE BLOOD COUNT 6.7 K/UL (4.8-10.8)
[2019-12-24 11:12] LABS: ANION GAP 6 mmol/L (5-15); BLOOD UREA NITROGEN 15 mg/dL (7-18); CARBON DIOXIDE 30 MMOL/L (21-32); CHLORIDE 107 MMOL/L (98-107); CREATININE 1.1 MG/DL (0.55-1.30); POTASSIUM 3.7 MMOL/L (3.5-5.1); SODIUM 143 MMOL/L (136-145)
[2019-12-24 11:28] LABS: ALANINE AMINOTRANSFERASE 21 U/L (12-78); ALBUMIN 3.9 G/DL (3.4-5.0); ALBUMIN/GLOBULIN RATIO 1.1 (1.0-2.7); ALKALINE PHOSPHATASE 106 U/L (46-116); ASPARTATE AMINO TRANSFERASE 20 U/L (15-37); BILIRUBIN,TOTAL 0.5 MG/DL (0.2-1.0); FERRITIN 236 NG/ML (8-388)
[2019-12-24] MEDS ORDERED: Lidocaine 1% Plain 30 ml INJ PRN (11:29)
[2019-12-24] MEDS ORDERED: Heparin1,000 units/500ml Premix(Conc:2 units/ml) IV PRN (11:29)
[2019-12-24 12:00] VITALS: BP 108/69
[2019-12-24 12:00] LABS: % IRON SATURATION 34 % (15-50); IRON 111 ug/dL (50-175); TOTAL IRON BINDING CAPACITY 329 ug/dL (250-450)
[2019-12-24] MEDS: Neomycin Sulfate 500mg Tab ORAL SCH ×3 (12:04→20:08)
--- NOTE | 2019-12-24 13:26 | General Progress Note ---
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 Despite prolonged trial of mesalamine into pouch qhs, Rifaxamin, courses of Cipro and clindamycin only temporary healing occurs, with prompt recurrence of fistula activity after stopping antibiotics, despite continuing mesalamine. H&P dictated Full discussion with patient regarding likely new valve and stoma, possible relocation of stoma, gastrostomy, indications, alternative and risks. Plan; PICC line Bowel prep with IV hydration Indwelling pouch catheter to continuous drainage Pre-op IV antibiotics and SQ heparin surgery in AM Cedrick Juarez MD Dec 24, 2019 13:26
--- NOTE | 2019-12-24 13:53 | Pre-Procedure Note/Attestation ---
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 I attest that, if there was a reasonable possibility of needing a blood transfusion, the patient (or the patient's legal account maintenance representative) was given the [facility] standardized written summary, pursuant to the Mehran Heidi Blood Safety Act ([place] Health and Safety Code # 1645, as amended). I attest that I re-evaluated the patient just prior to the surgery and that there has been no change in the patient's H&P, except as documented below: Moy Velez MD Dec 24, 2019 13:53
--- NOTE | 2019-12-24 13:54 | Brief Operative Note ---
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
--- NOTE | 2019-12-24 14:09 | Diagnostic Imaging Report ---
Indication: Cough Technique: One view of the chest Comparison: 09/01/2019 Findings: Minimal scarring at the right lung base appears similar to the previous exam. Lungs and pleural spaces are otherwise clear. The heart size is normal. No significant change Impression: No acute process
[2019-12-24 14:11] LABS: APPEARANCE,URINE CLEAR; BILIRUBIN, URINE NEGATIVE (NEGATIVE); COLOR,URINE PALE YELLOW; GLUCOSE, URINE (UA) NEGATIVE (NEGATIVE); KETONES,URINE NEGATIVE (NEGATIVE); LEUKOCYTE ESTERASE ,URINE 1+ (NEGATIVE); NITRITE,URINE NEGATIVE (NEGATIVE); PH,URINE 6 (4.5-8.0); PROTEIN,URINE NEGATIVE (NEGATIVE); UROBILINOGEN,URINE NORMAL MG/DL (0.0-1.0)
--- NOTE | 2019-12-24 15:16 | Anethesia Preoperative Eval ---
Anesthesia Pre-op PMH/ROS General Date of Evaluation: Dec 24, 2019 Time of Evaluation: 15:15 Anesthesiologist: mindi ASA Score: ASA 2 Mallampati Score Class I : Soft palate, uvula, fauces, pillars visible Class II: Soft palate, uvula, fauces visible Class III: Soft palate, base of uvula visible Class IV: Only hard plate visible Mallampati Classification: Class II Surgeon: Larry Diagnosis: malfunction pouch Surgical Procedure: laparatomy with revision of rizo pouch Anesthesia History: none Family History: no anesthesia problems Allergies: Coded Allergies: PENICILLINS (Verified Allergy, Intermediate, 01/07/19) ADHESIVE TAPE (Verified Adverse Reaction, Intermediate, Rash, 09/01/19) Medications: see eMAR Patient NPO?: Yes NPO Date: Dec 24, 2019 NPO Time: 00:01 Past Medical History Cardiovascular: Denies: HTN, CAD, IA, valve dz, arrhythmia, other Pulmonary: Denies: asthma, COPD, PRIMO, other Gastrointestinal/Genitourinary: Denies: GERD, CRI, ESRD, other Neurologic/Psychiatric: Reports: depression/anxiety; Denies: dementia, CVA, TIA, other Endocrine: Reports: hypothyroidism; Denies: DM, steroids, other HEENT: Denies: cataract (L), cataract (R), glaucoma, [place] IQUA (L), [place]QUA (R), other Hematology/Immune: Denies: anemia, DVT, bleeding disorder, other Musculoskeletal/Integumentary: Denies: OA, RA, DJD, DDD, edema, other PSxH Narrative: 1. Total colectomy with ileoanal J-pouch in 1989. 2. Ileostomy in 2013. 3.3. Rizo continent ileostomy and resection of failed ileoanal J-pouch with abdomino-perineal proctectomy, November 2014 in [place]. 4. Revision of Rizo pouch valve, stoma and access segment in [place], April 12 Anesthesia Pre-op Phys. Exam Physician Exam Last Vital Signs Date Time Temp Pulse Resp B/P (MAP) Pulse Ox O2 Delivery O2 Flow Rate FiO2 12/24/19 12:00 97.7 71 19 108/69 (82) 99 12/24/19 10:37 Room Air Constitutional: NAD Neurologic: CN 2-12 intact Cardiovascular: RRR Respiratory: CTA Gastrointestinal: S/NT/ND Airway Exam Mallampati Classification 2 Mallampati Score: Class II Neck: flexible ROM: full Dentures: no upper, no lower Anesthesia Pre-op A/P Labs Hematology Test 12/24/19 10:35 White Blood Count 6.7 K/UL (4.8-10.8) Red Blood Count 5.18 M/UL (4.70-6.10) Hemoglobin 15.3 G/DL (14.2-18.0) Hematocrit 44.4 % (42.0-52.0) Mean Corpuscular Volume 86 FL (80-99) Mean Corpuscular Hemoglobin 29.5 PG (27.0-31.0) Mean Corpuscular Hemoglobin Concent 34.4 G/DL (32.0-36.0) Red Cell Distribution Width 11.8 % (11.6-14.8) Platelet Count 236 K/UL (150-450) Mean Platelet Volume 6.7 FL (6.5-10.1) Neutrophils (%) (Auto) 63.9 % (45.0-75.0) Lymphocytes (%) (Auto) 20.1 % (20.0-45.0) Monocytes (%) (Auto) 11.4 % (1.0-10.0) H Eosinophils (%) (Auto) 3.5 % (0.0-3.0) H Basophils (%) (Auto) 1.1 % (0.0-2.0) Coagulation Test 12/24/19 10:35 Prothrombin Time 10.7 SEC (9.30-11.50) Prothromb Time International Ratio 1.0 (0.9-1.1) Activated Partial Thromboplast Time 24 SEC (23-33) Chemistry Test 12/24/19 10:35 Sodium Level 143 MMOL/L (136-145) Potassium Level 3.7 MMOL/L (3.5-5.1) Chloride Level 107 MMOL/L (98-107) Carbon Dioxide Level 30 MMOL/L (21-32) Anion Gap 6 mmol/L (5-15) Blood Urea Nitrogen 15 mg/dL (7-18) Creatinine 1.1 MG/DL (0.55-1.30) Estimat Glomerular Filtration Rate > 60 mL/min (>60) Glucose Level 99 MG/DL (74-106) Calcium Level 9.0 MG/DL (8.5-10.1) Iron Level 111 ug/dL (50-175) Total Iron Binding Capacity 329 ug/dL (250-450) Percent Iron Saturation 34 % (15-50) Unsaturated Iron Binding 218 ug/dL (112-346) Ferritin 236 NG/ML (8-388) Total Bilirubin 0.5 MG/DL (0.2-1.0) Aspartate Amino Transf (AST/SGOT) 20 U/L (15-37) Alanine Aminotransferase (ALT/SGPT) 21 U/L (12-78) Alkaline Phosphatase 106 U/L (46-116) Total Protein 7.3 G/DL (6.4-8.2) Albumin 3.9 G/DL (3.4-5.0) Globulin 3.4 g/dL Albumin/Globulin Ratio 1.1 (1.0-2.7) Vitamin B12 Level 1008 PG/ML (193-986) H Folate 20.2 NG/ML (8.6-58.9) Studies Pre-op Studies: EKG - SR Risk Assessment & Plan Assessment: re assess the day of surgery Plan: general Status Change Before Surgery: Janette Rene CRNA Dec 24, 2019 15:16
[2019-12-24 16:00] VITALS: BP 120/75
[2019-12-24] MEDS: D5 1/2NS w/KCl 20mEq 1,000 ML IV SCH (18:29)
[2019-12-24 20:00] VITALS: BP 109/65
[2019-12-24] MEDS: Dyna-Hex 2% Top Sol 2oz TOPIC SCH (20:07)
[2019-12-24] MEDS: COMBIGAN OPHTHALM SCH (20:08)
[2019-12-24] MEDS: Clindamycin 600mg 50 ML IV SCH (23:02)
[2019-12-24 23:13] VITALS: BP 94/59
[2019-12-25] VITALS (11 sets, daily range): BP systolic 103–120; BP diastolic 64–85
[2019-12-25] MEDS: D5 1/2NS w/KCl 20mEq 1,000 ML IV SCH (03:54)
[2019-12-25] MEDS: Clindamycin 600mg 50 ML IV SCH ×3 (05:07→18:13)
[2019-12-25] MEDS ORDERED: Heparin 5000 units/ml inj SUBQ SCH (05:30)
[2019-12-25] MEDS ORDERED: Rocuronium Bromide 50mg/5ml Inj IV ONE (07:00)
[2019-12-25] MEDS ORDERED: Succinylcholine 20mg/ml 10ml vial ONE (07:00)
[2019-12-25 07:05] LABS: BASOPHILS % (AUTO) 1.6 % (0.0-2.0); EOSINOPHILS % (AUTO) 3.9 % (0.0-3.0); HEMATOCRIT 39.1 % (42.0-52.0); HEMOGLOBIN 13.5 G/DL (14.2-18.0); LYMPHOCYTES % (AUTO) 16.6 % (20.0-45.0); MEAN CORPUSCULAR VOLUME 86 FL (80-99); MONOCYTES % (AUTO) 7.4 % (1.0-10.0); NEUTROPHILS % (AUTO) 70.5 % (45.0-75.0); PLATELET COUNT 118 K/UL (150-450); RED BLOOD COUNT 4.54 M/UL (4.70-6.10); RED CELL DISTRIBUTION WIDTH 11.6 % (11.6-14.8); WHITE BLOOD COUNT 5.6 K/UL (4.8-10.8)
[2019-12-25] MEDS ORDERED: NeoSporin Gu Irrig 1ml Amp IRRIG ONE (07:06)
[2019-12-25] MEDS ORDERED: Bacitracin 50000 Units Vial ONE (07:06)
[2019-12-25] MEDS ORDERED: Midazolam 2mg/2ml Inj ONE (07:09)
[2019-12-25] MEDS ORDERED: fentaNYL 100 mcg/2 mL IV ONE (07:10)
[2019-12-25] MEDS ORDERED: Lidocaine 1% MPF 10mg/ml 5ml ONE (07:12)
--- NOTE | 2019-12-25 07:19 | Pre-Procedure Note/Attestation ---
Pre-Procedure Note/Attestation Complete Prior to Procedure Planned Procedure: not applicable Procedure Narrative: laparotomy with revision of Quevedo Continent Ileostomy, repair of fistula, creation of new valve and stoma with possible relocation of stoma, gastrostomy Indications for Procedure Pre-Operative Diagnosis: Fistula of Quevedo Continent Ileostomy to access segment with peristomal infections and incontinence Attestation I attest that I discussed the nature of the procedure; its benefits; risks and complications; and alternatives (and the risks and benefits of such alternatives), prior to the procedure, with the patient (or the patient's legal vaccine customer representative). I attest that, if there was a reasonable possibility of needing a blood transfusion, the patient (or the patient's legal vaccine customer representative) was given the [place] [facility] standardized written summary, pursuant to the Mehran Heidi Blood Safety Act ([place] Health and Safety Code # 1645, as amended). I attest that I re-evaluated the patient just prior to the surgery and that there has been no change in the patient's H&P, except as documented below: none Cedrick Juarez MD Dec 25, 2019 07:19
[2019-12-25 07:36] LABS: ALBUMIN 3.3 G/DL (3.4-5.0); ALBUMIN/GLOBULIN RATIO 1.3 (1.0-2.7); ALKALINE PHOSPHATASE 86 U/L (46-116); ANION GAP 8 mmol/L (5-15); ASPARTATE AMINO TRANSFERASE 19 U/L (15-37); BILIRUBIN,TOTAL 0.7 MG/DL (0.2-1.0); CALCIUM 8.6 MG/DL (8.5-10.1); CARBON DIOXIDE 25 MMOL/L (21-32); CHLORIDE 107 MMOL/L (98-107); CREATININE 0.9 MG/DL (0.55-1.30); POTASSIUM 3.9 MMOL/L (3.5-5.1); SODIUM 140 MMOL/L (136-145)
--- NOTE | 2019-12-25 08:00 | Pre-op HX & Phy Repo 2 SIG ---
DATE OF ADMISSION: 12/24/2019 HISTORY OF PRESENT ILLNESS: Please see previously dictated history. The patient has now arrived from out of state and examined. He is somewhat thin, but well developed and well nourished, 5 feet 9 inches and 158 pounds. He states his weight has been stable for a long period of time. PHYSICAL EXAMINATION: VITAL SIGNS: Within normal limits. HEENT: Within normal limits. LUNGS: Clear. HEART: Regular rhythm. BREASTS: Without masses. ABDOMEN: Soft and flat. There is a long midline scar. The stoma of his Quevedo continent ileostomy is low in the right lower quadrant. There was no peristomal induration or inflammation at this time. There is no abdominal wall hernia. GENITALIA: Testes and scrotum within normal limits. RECTAL: Status post proctectomy. EXTREMITIES: Without edema. Pulses 3+ femoral to pedal bilaterally. NEUROLOGIC: Physiologic. IMPRESSION: 1. Fistula of Quevedo continent ileostomy valve to access segment with recurring peristomal infection and incontinence. 2. History of ulcerative colitis. 3. Status post thyroidectomy. 4. Status post multiple abdominal operations. 4.1. Total colectomy with ileoanal J-pouch in 1989. 4.2. Ileostomy in 2013. 4.3. Quevedo continent ileostomy and resection of failed ileoanal J-pouch with abdomino-perineal proctectomy, November 2014 in [place]. 4.4. Revision of Quevedo pouch valve, stoma and access segment, 04/12/2018 in [place]. 4.5. Laparotomy with revision of Quevedo continent ileostomy valve, stoma and access segment on 01/08/2019. PLAN: I have had a full discussion with the patient regarding the nature of his condition. The fact that aggressive medical therapy has failed to resolve this fistula that originated from prior surgery in [place] and that he will require takedown of his stoma, mobilization of the pouch, sealing of this access segment and valve, and creation of a new valve and stoma with possible relocation of the stoma to the left lower quadrant together with temporary catheter gastrostomy for decompression. I have again discussed the indications, alternatives, options, and risks of the surgery, the general risks as well as the specific risks of the Quevedo pouch including the potential that he will have recurrent difficulties even with a new valve. He could have a fistula or slipped valve or other issues ultimately agree to resection of this pouch, which is his second intestinal pouch and go back to a conventional permanent ileostomy. All questions have been answered. He understands and agrees to proceed. Cedrick Juarez M.D. DR: Chago JOB#: [id number] CC:
[2019-12-25] MEDS ORDERED: Sodium Chloride 10ml vial INJ ONE ×2 (08:26→09:01)
[2019-12-25] MEDS ORDERED: ePHEDrine 50mg/ml Inj ONE (08:26)
[2019-12-25] MEDS ORDERED: Hydromorphone 0.5mg/0.5ml inj IVP PRN (08:45)
[2019-12-25] MEDS ORDERED: Ketorolac 30mg Inj IV PRN ×2 (08:45→10:44)
[2019-12-25] MEDS ORDERED: Acetaminophen (Non formulary) 100 ML IV ONE (08:45)
[2019-12-25] MEDS ORDERED: DiphenhydrAMINE 50mg/ml Inj IVP PRN ×2 (08:45→10:43)
[2019-12-25] MEDS ORDERED: LR 1000ml 1,000 ML IVLG SCH (08:45)
[2019-12-25 08:55] LABS: ALANINE AMINOTRANSFERASE 18 U/L (12-78)
[2019-12-25] MEDS: LOTEMAX 0.5% OPHTHALM SCH (09:00)
[2019-12-25] MEDS ORDERED: Morphine Sulfate 10mg/ml Inj ONE (09:00)
[2019-12-25 09:30] LABS: BLOOD UREA NITROGEN 9 mg/dL (7-18)
[2019-12-25] MEDS ORDERED: Glycopyrrolate 0.2mg/ml 1ml Vial ONE (09:50)
[2019-12-25] MEDS ORDERED: Neostigmine 1mg/ml 10ml Inj ONE (09:50)
--- NOTE | 2019-12-25 10:31 | Diagnostic Imaging Report ---
Indications: Needs long-term IV access Technique: Ultrasound confirms patent compressible left brachial vein. Total sterile technique, including sterile probe cover and sterile gel, hat, mask, sterile gown, large sterile drape, and preparation with 2% chlorhexidine utilized. Local anesthesia with 1% lidocaine. Under real-time ultrasound guidance, puncture trachea vein using 21-gauge needle, documented and archived, passage 0.018 guidewire under direct fluoroscopy, which was used to determine appropriate catheter length, exchange for 4 Icelandic peel-away sheath. 4 Icelandic dual-lumen power PICC cut to 46 cm. It was inserted through the peel-away sheath. Peel-away sheath and guidewire removed. Catheter fixed to the skin. Both catheter ports aspirated and flushed. Patient tolerated procedure well, without immediate complication. Digital radiograph documents satisfactory catheter tip position, at the cavoatrial junction. Total fluoroscopy time 28.7 seconds. Total dose area product [id number] mGym2 Total number of images: 1 Impression: Successful placement of left arm PICC under sonographic and fluoroscopic guidance, as described above.
[2019-12-25] MEDS ORDERED: Naloxone 0.4mg/ml Inj IVP PRN (10:43)
[2019-12-25] MEDS ORDERED: LORazepam 1mg tab SL PRN (10:45)
[2019-12-25] MEDS ORDERED: PCA Education Pamphlet MISC ONE (10:45)
[2019-12-25] MEDS ORDERED: Rate Change PCA 1 Each MISC PRN (10:45)
--- NOTE | 2019-12-25 10:48 | Brief Operative Note ---
Immediate Post Operative Note Operative Note Pre-op Diagnosis: Fistula of Quevedo Continent Ileostomy to access segment with peristomal infections and incontinence Procedure: laparotomy, resection of Quevedo collar fistula and repair of access segment fistula, revision of stoma in depth Post-op Diagnosis: same Post-op Diagnosis: same as pre-op Findings: consistent w/pre-op dx studies Surgeon: froy Additional Surgeons: lizz Anesthesiologist: theresa Anesthesia: general Specimen: yes - Quevedo pouch collar segment Complications: none Condition: stable Fluids: see anesthesia record Estimated Blood Loss: minimal Drains: other - 28 Trevino to Quevedo pouch Implant(s) used?: No Cedrick Juarez MD Dec 25, 2019 10:48
--- NOTE | 2019-12-25 10:48 | Immediate Post-Op Evaluation ---
Immediate Post-Op Evalulation Immediate Post-Op Evalulation Procedure: Exploratory laparotomy, lysis of adhesions, revision of continent pouch Date of Evaluation: Dec 25, 2019 Time of Evaluation: 10:47 IV Fluids: 800 Blood Products: none Estimated Blood Loss: 100 Urinary Output: 100 Blood Pressure Systolic: 106 Blood Pressure Diastolic: 71 Pulse Rate: 89 Respiratory Rate: 20 O2 Sat by Pulse Oximetry: 99 Temperature (Fahrenheit): 97.8 Pain Score (1-10): 1 Nausea: No Vomiting: No Complications none Patient Status: reacts, patent, extubated, none Hydration Status: adequate Julius Mackay MD Dec 25, 2019 10:48
[2019-12-25] MEDS: PCA Morphine 1mg/ml 30 ML IV PRN ×2 (11:33→15:30)
--- NOTE | 2019-12-25 13:15 | Operative Note - Dictated ---
DATE OF OPERATION: 12/25/2019 SURGEON: Cedrick Juarez MD. MANAGER FAMILY SURGEON: Sriram Lee MD. ANESTHESIOLOGIST: Julius Mackay MD. TYPE OF ANESTHESIA: General endotracheal. PREOPERATIVE DIAGNOSES: 1. Malfunctioning Quevedo continent ileostomy with fistula to access segment with recurring peristomal infection. 2. History of ulcerative colitis. 3. STATUS POST MULTIPLE ABDOMINAL OPERATIONS: 3.1. Total colectomy with ileoanal J-pouch in 1989. 3.2. Ileostomy in 2013. 3.3. Quevedo continent ileostomy and resection of failed ileoanal J-pouch with abdominal-perineal proctectomy, November 2014 in [place]. 3.4. Revision of Quevedo pouch valve stoma and access segment, April 12, 2018 in [place]. 3.5. Laparotomy with revision of Quevedo continent ileostomy valve stoma and access segment, January 08, 2019. POSTOPERATIVE DIAGNOSES: 1. Malfunctioning Quevedo continent ileostomy with fistula to access segment with recurring peristomal infection. 2. History of ulcerative colitis. 3. STATUS POST MULTIPLE ABDOMINAL OPERATIONS: 3.1. Total colectomy with ileoanal J-pouch in 1989. 3.2. Ileostomy in 2013. 3.3. Quevedo continent ileostomy and resection of failed ileoanal J-pouch with abdominal-perineal proctectomy, November 2014 in [place]. 3.4. Revision of Quevedo pouch valve stoma and access segment, April 12, 2018 in [place]. 3.5. Laparotomy with revision of Quevedo continent ileostomy valve stoma and access segment, January 08, 2019. OPERATION PERFORMED: Laparotomy with resection of Quevedo pouch collar, fistula and repair of access segment with revision of stoma and access segment in depth. DESCRIPTION OF PROCEDURE: The patient was taken to the operating room and under general endotracheal anesthesia with sequential compression device stockings and Trevino catheter in place, she was prepped and draped in usual fashion. Previous midline incision was reopened from the lower epigastrium to the pubis. There were moderate adhesions in the abdominal cavity and dense adhesions of the pouch in the pelvis and under the abdominal wall near the stoma. A 28-Albanian Trevino catheter was placed through the stoma into the pouch to help facilitate mobilization. The pouch was completely mobilized protecting the bladder and ureters achieving hemostasis with cautery. He had a shallow deep pelvic floor from his prior surgeries. The stoma and access segment was taken down with a transversely oriented elliptical incision. It was obvious that the fistula was from the collar segment. A collar enterotomy was created and purulent fluid came out, which was sent for cultures. Another collar enterotomy was created during the dissection and now was evident that the orifice of the collar from the pouch itself was very stenotic, so that if the pouch collar filled it could not empty back into the pouch resulting in this persistent recurrent fistula. Palpating from within the collar of the stenotic opening was dilated, but the entire collar segment had to be resected off of the pouch without entry through the serosa of the pouch itself. This was done in several segments and all the tissue given to pathology. Where the collar was wrapped around the access segment at the base near the junction with the pouch, was a small opening that was closed with two running layers of 3-0 Vicryl. This was the base of the access segment and will be stented by the indwelling catheter and no stool will be located in this area. After completing the collar resection and repair of the access segment fistulous site, a 28-Albanian Trevino catheter was appropriately positioned in the pouch and the afferent bowel manually occluded. The pouch was distended with 400 mL of saline and there was no extravasation from any of the repairs. The catheter was removed and there was no incontinence at all. The catheter was readily reintroduced without difficulty and the pouch decompressed. The pouch lay nicely in the pelvis and the bowel loops were placed anatomically, I did not feel there was any indication for catheter gastrostomy. The field was copiously irrigated and hemostasis carefully secured with cautery. The Thunderbeat vessel sealing device had been used during the procedure as well. The stoma and access segment was brought through at the prior location with the skin orifice narrowed with one 4-0 Monocryl subcuticular suture medially. Then, redundancy of the access segment was excised and the stoma primarily matured with continuous 2-0 chromic locking suture starting at the 3 and 9 o'clock positions. There was good perfusion at the edge of the newly created stoma and hemostasis was secured. The 28-Albanian Trevino catheter was positioned carefully in the apex of the pouch and then sutured to the skin with two sutures of 2-0 silk. It was flushed and connected to gravity drainage bag. After ascertaining the hemostasis was secured and having used antibiotic irrigation, the midline incision was closed in one layer with #1 continuous looped PDS. The skin was closed with claudia. Dry sterile dressings were applied. Final sponge and needle counts were correct. The patient tolerated the procedure well and left the operating room in good condition. He had received preoperative intravenous antibiotics and subcutaneous heparin, and Trevino catheter inserted prior to surgery. Cedrick Juarez M.D. DR: MARIAM JOB#: [id number] CC:
[2019-12-25] MEDS: D5 1/4NS w/KCl 20mEq 1,000 ML IV SCH (13:59)
[2019-12-25] MEDS: PCA shift volume MISC SCH (19:00)
[2019-12-25] MEDS: COMBIGAN OPHTHALM SCH (20:43)
[2019-12-25] MEDS: Dyna-Hex 2% Top Sol 2oz TOPIC SCH (20:43)
[2019-12-26] VITALS: BP 93/57
[2019-12-26] MEDS: D5 1/4NS w/KCl 20mEq 1,000 ML IV SCH ×3 (00:33→20:20)
[2019-12-26] MEDS: Clindamycin 600mg 50 ML IV SCH ×4 (00:33→17:32)
[2019-12-26 04:00] VITALS: BP 95/58
[2019-12-26 06:25] LABS: BASOPHILS % (AUTO) 0.9 % (0.0-2.0); EOSINOPHILS % (AUTO) 3.8 % (0.0-3.0); HEMOGLOBIN 12.9 G/DL (14.2-18.0); LYMPHOCYTES % (AUTO) 9.3 % (20.0-45.0); MEAN CORPUSCULAR VOLUME 87 FL (80-99); MONOCYTES % (AUTO) 7.4 % (1.0-10.0); NEUTROPHILS % (AUTO) 78.6 % (45.0-75.0); PLATELET COUNT 156 K/UL (150-450); RED BLOOD COUNT 4.37 M/UL (4.70-6.10); RED CELL DISTRIBUTION WIDTH 11.9 % (11.6-14.8); WHITE BLOOD COUNT 7.5 K/UL (4.8-10.8)
[2019-12-26] MEDS: PCA shift volume MISC SCH ×2 (07:00→19:00)
[2019-12-26 07:02] LABS: ANION GAP 6 mmol/L (5-15); BLOOD UREA NITROGEN 9 mg/dL (7-18); CALCIUM 8.5 MG/DL (8.5-10.1); CARBON DIOXIDE 26 MMOL/L (21-32); CHLORIDE 106 MMOL/L (98-107); CREATININE 1.2 MG/DL (0.55-1.30); SODIUM 138 MMOL/L (136-145)
[2019-12-26] MEDS ORDERED: NS Irrig 1000ml ONE (07:30)
[2019-12-26] MEDS ORDERED: LR 1000ml ONE (07:30)
[2019-12-26] MEDS ORDERED: Sterile Water Irrig 1000ml IRRIG ONE (07:30)
[2019-12-26 08:00] VITALS: BP 99/61
[2019-12-26] MEDS ORDERED: Naloxone 0.4mg/ml Inj IVP PRN (08:39)
[2019-12-26] MEDS ORDERED: PCA Morphine 1mg/ml 30 ML IV PRN (08:44)
[2019-12-26] MEDS ORDERED: DiphenhydrAMINE 50mg/ml Inj IVP PRN (08:44)
[2019-12-26] MEDS ORDERED: Rate Change PCA 1 Each MISC PRN (08:45)
--- NOTE | 2019-12-26 08:52 | General Progress Note ---
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 Chest clear cor reg rhythm Abdomen soft, mild distention, incision clean, stoma pink Urine only 125cc overnight BCIR ileo scant WBC 7500 Hgb 12.9 Platelets 156,000 BUN 9 Cr 1.2 Imp: Ileus Hypovolemia, mild Plan; Add NS at 75cc/hour to current IV at 100cc/hr until urine output improved Ambulate BID NPO, Continuous drainage of Quevedo Pouch ' f/u labs Cedrick Juarez MD Dec 26, 2019 08:52
[2019-12-26] MEDS: LOTEMAX 0.5% OPHTHALM SCH (09:03)
--- NOTE | 2019-12-26 09:59 | 48 Hour Post Anesthesia Eval ---
Post Anesthesia Evaluation Procedure: Exploratory laparotomy, lysis of adhesions, revision of continent pouch Date of Evaluation: Dec 26, 2019 Time of Evaluation: 09:58 Blood Pressure Systolic: 99 0: 61 Pulse Rate: 93 Respiratory Rate: 18 Temperature (Fahrenheit): 99.8 O2 Sat by Pulse Oximetry: 98 Airway: patent Nausea: No Vomiting: No Pain Intensity: 3 Hydration Status: adequate Cardiopulmonary Status: Stable Mental Status/LOC: patient returned to baseline Follow-up Care/Observations: 0 Post-Anesthesia Complications: 0 Follow-up care needed: N/A Alex Velez MD Dec 26, 2019 09:59
[2019-12-26 12:00] VITALS: BP 95/71
[2019-12-26 16:00] VITALS: BP 111/73
[2019-12-26] MEDS ORDERED: Ascorbic Acid 500mg tab ORAL PRN (18:00)
[2019-12-26 20:00] VITALS: BP 99/61
[2019-12-26] MEDS: COMBIGAN OPHTHALM SCH (20:20)
[2019-12-26] MEDS: Dyna-Hex 2% Top Sol 2oz TOPIC SCH (20:20)
[2019-12-26] MEDS ORDERED: Tubing IV Secondary IV ONE (22:22)
[2019-12-26] MEDS ORDERED: NS 275ml ONE (22:22)
[2019-12-27] VITALS: BP 97/56
[2019-12-27] MEDS: Clindamycin 600mg 50 ML IV SCH ×5 (00:04→23:45)
[2019-12-27 04:00] VITALS: BP 97/63
[2019-12-27] MEDS: D5 1/4NS w/KCl 20mEq 1,000 ML IV SCH ×2 (05:41→15:52)
[2019-12-27 06:02] LABS: BASOPHILS % (AUTO) 0.7 % (0.0-2.0); EOSINOPHILS % (AUTO) 5.7 % (0.0-3.0); HEMATOCRIT 34.2 % (42.0-52.0); HEMOGLOBIN 11.8 G/DL (14.2-18.0); LYMPHOCYTES % (AUTO) 10.3 % (20.0-45.0); MEAN CORPUSCULAR VOLUME 86 FL (80-99); MONOCYTES % (AUTO) 9.8 % (1.0-10.0); NEUTROPHILS % (AUTO) 73.6 % (45.0-75.0); PLATELET COUNT 142 K/UL (150-450); RED BLOOD COUNT 3.99 M/UL (4.70-6.10); RED CELL DISTRIBUTION WIDTH 11.5 % (11.6-14.8); WHITE BLOOD COUNT 8.1 K/UL (4.8-10.8)
[2019-12-27 06:04] LABS: ALANINE AMINOTRANSFERASE 15 U/L (12-78); ALBUMIN 2.4 G/DL (3.4-5.0); ALBUMIN/GLOBULIN RATIO 0.8 (1.0-2.7); ALKALINE PHOSPHATASE 74 U/L (46-116); ANION GAP 5 mmol/L (5-15); ASPARTATE AMINO TRANSFERASE 13 U/L (15-37); BILIRUBIN,TOTAL 0.7 MG/DL (0.2-1.0); BLOOD UREA NITROGEN 5 mg/dL (7-18); CALCIUM 8.4 MG/DL (8.5-10.1); CARBON DIOXIDE 26 MMOL/L (21-32); CHLORIDE 106 MMOL/L (98-107); PHOSPHORUS 2.6 MG/DL (2.5-4.9); POTASSIUM 3.9 MMOL/L (3.5-5.1); SODIUM 137 MMOL/L (136-145)
[2019-12-27] MEDS: PCA shift volume MISC SCH ×2 (07:06→19:11)
[2019-12-27 08:00] VITALS: BP 101/67
[2019-12-27] MEDS: LOTEMAX 0.5% OPHTHALM SCH (08:44)
--- NOTE | 2019-12-27 09:07 | General Progress Note ---
Progress Note Progress Note AVSS Ambulated well yesterday. Not much pain Abdomen soft, flat, incision clean, stoma pink Urine 3025 BCIR ileo 135 WBC 8100 Hgb 11.8 Platelets 142,000 BUN 5 Cr 1.0 Mg 1.7 Imp: Ileus Plan; continue npo, izquierdo (pelvic dissection) d/c basal infusion of model and dye person Mg infusions f/u labs Cedrick Juarez MD Dec 27, 2019 09:07
[2019-12-27] MEDS ORDERED: HYDROmorphone 1mg/ml Carpuject SUBQ PRN (09:15)
[2019-12-27] MEDS ORDERED: PCA Morphine 1mg/ml 30 ML IV PRN (09:15)
[2019-12-27] MEDS ORDERED: Rate Change PCA 1 Each MISC PRN (09:15)
[2019-12-27 12:00] VITALS: BP 116/67
[2019-12-27 16:00] VITALS: BP 112/69
[2019-12-27] MEDS: Dyna-Hex 2% Top Sol 2oz TOPIC SCH (19:49)
[2019-12-27 20:00] VITALS: BP 115/69
[2019-12-27] MEDS: COMBIGAN OPHTHALM SCH (20:05)
[2019-12-28] VITALS (7 sets, daily range): BP systolic 103–124; BP diastolic 63–75
[2019-12-28] MEDS: D5 1/4NS w/KCl 20mEq 1,000 ML IV SCH ×3 (02:00→22:00)
[2019-12-28] MEDS: Clindamycin 600mg 50 ML IV SCH ×3 (05:37→17:58)
[2019-12-28 05:53] LABS: BASOPHILS % (AUTO) 0.6 % (0.0-2.0); EOSINOPHILS % (AUTO) 6.9 % (0.0-3.0); HEMATOCRIT 33.9 % (42.0-52.0); HEMOGLOBIN 11.8 G/DL (14.2-18.0); LYMPHOCYTES % (AUTO) 8.4 % (20.0-45.0); MEAN CORPUSCULAR VOLUME 85 FL (80-99); MONOCYTES % (AUTO) 9.5 % (1.0-10.0); NEUTROPHILS % (AUTO) 74.6 % (45.0-75.0); PLATELET COUNT 157 K/UL (150-450); RED BLOOD COUNT 3.97 M/UL (4.70-6.10); RED CELL DISTRIBUTION WIDTH 11.6 % (11.6-14.8); WHITE BLOOD COUNT 6.9 K/UL (4.8-10.8)
[2019-12-28 06:10] LABS: ALANINE AMINOTRANSFERASE 12 U/L (12-78); ALBUMIN 2.4 G/DL (3.4-5.0); ALBUMIN/GLOBULIN RATIO 0.7 (1.0-2.7); ALKALINE PHOSPHATASE 75 U/L (46-116); ANION GAP 3 mmol/L (5-15); ASPARTATE AMINO TRANSFERASE 9 U/L (15-37); BILIRUBIN,TOTAL 0.5 MG/DL (0.2-1.0); BLOOD UREA NITROGEN 3 mg/dL (7-18); CALCIUM 8.5 MG/DL (8.5-10.1); CARBON DIOXIDE 29 MMOL/L (21-32); CHLORIDE 108 MMOL/L (98-107); CREATININE 0.9 MG/DL (0.55-1.30); SODIUM 139 MMOL/L (136-145)
[2019-12-28] MEDS: PCA shift volume MISC SCH ×2 (07:00→19:30)
[2019-12-28] MEDS: LOTEMAX 0.5% OPHTHALM SCH (08:20)
[2019-12-28] MEDS ORDERED: PCA Morphine 1mg/ml 30 ML IV PRN ×2 (09:15→10:15)
--- NOTE | 2019-12-28 09:53 | General Progress Note ---
Progress Note Progress Note AVSS Doing well with demand dosing only on INFORMATION TECH. Abdomen soft, incision clean, stoma pink Urine 4300 BCIR ileo 90cc enteric WBC 6900 Hgb 11.8 Platelets up 157,000 BUN 3 Cr 0.9 Mg up 2.1 Imp: Ileus Plan: continue npo, izquierdo (diuresing + pelvic dissectin) f/u labs maintain continuous drainage of Quevedo Pouch Cedrick Juarez MD Dec 28, 2019 09:53
[2019-12-28] MEDS ORDERED: Rate Change PCA 1 Each MISC PRN (10:15)
--- NOTE | 2019-12-28 12:03 | Cardiology Report ---
APPROVED REPORT EKG Measurement Heart [id number] <Conclusion> Normal sinus rhythm Normal ECG
[2019-12-28] MEDS ORDERED: NS Irrig 1000ml ONE (15:48)
[2019-12-28] MEDS ORDERED: Tubing IV Secondary IV ONE ×2 (15:48)
[2019-12-28] MEDS ORDERED: NS 500ML ONE (15:48)
[2019-12-28] MEDS: Dyna-Hex 2% Top Sol 2oz TOPIC SCH (19:55)
[2019-12-28] MEDS: COMBIGAN OPHTHALM SCH (20:06)
[2019-12-29] VITALS: BP 108/67
[2019-12-29] MEDS: Clindamycin 600mg 50 ML IV SCH ×5 (00:13→23:58)
[2019-12-29 04:00] VITALS: BP 102/70
[2019-12-29 05:42] LABS: BASOPHILS % (AUTO) 1.2 % (0.0-2.0); HEMATOCRIT 33.9 % (42.0-52.0); HEMOGLOBIN 11.8 G/DL (14.2-18.0); LYMPHOCYTES % (AUTO) 12.5 % (20.0-45.0); MEAN CORPUSCULAR VOLUME 86 FL (80-99); MONOCYTES % (AUTO) 9.5 % (1.0-10.0); NEUTROPHILS % (AUTO) 66.9 % (45.0-75.0); PLATELET COUNT 185 K/UL (150-450); RED BLOOD COUNT 3.97 M/UL (4.70-6.10); RED CELL DISTRIBUTION WIDTH 11.4 % (11.6-14.8); WHITE BLOOD COUNT 5.7 K/UL (4.8-10.8)
[2019-12-29 05:44] LABS: ANION GAP 5 mmol/L (5-15); BLOOD UREA NITROGEN 4 mg/dL (7-18); CALCIUM 8.7 MG/DL (8.5-10.1); CARBON DIOXIDE 27 MMOL/L (21-32); CHLORIDE 106 MMOL/L (98-107); CREATININE 0.9 MG/DL (0.55-1.30); POTASSIUM 4.1 MMOL/L (3.5-5.1); SODIUM 138 MMOL/L (136-145)
[2019-12-29] MEDS: PCA shift volume MISC SCH ×2 (07:29→19:18)
[2019-12-29 08:00] VITALS: BP_SYST 102; BP_SYST 111; BP_DIAS 70; BP_DIAS 76
[2019-12-29] MEDS: D5 1/4NS w/KCl 20mEq 1,000 ML IV SCH ×2 (08:10→17:54)
[2019-12-29] MEDS: LOTEMAX 0.5% OPHTHALM SCH (08:10)
[2019-12-29] MEDS ORDERED: Rate Change PCA 1 Each MISC PRN (09:15)
--- NOTE | 2019-12-29 09:20 | General Progress Note ---
Progress Note Progress Note AVSS Feeling well. Ambulates well Abdomen soft, incision clean, bleeding lateral corner of stoma persists - will pack with surgicel Urine 2525 BCIR ileo 170 Labs all stable Imp: Ileus Stoma edge mild bleeding Plan; surgicel to stoma edge continue NPO, Trevion, Levaquin and Clindamycin Cedrick Juarez MD Dec 29, 2019 09:20
[2019-12-29] MEDS ORDERED: PCA Morphine 1mg/ml 30 ML IV PRN (09:30)
[2019-12-29 12:00] VITALS: BP 112/76
[2019-12-29 16:00] VITALS: BP 117/79
[2019-12-29] MEDS ORDERED: NS Irrig 1000ml ONE (17:48)
[2019-12-29 20:00] VITALS: BP 115/72
[2019-12-29] MEDS: Dyna-Hex 2% Top Sol 2oz TOPIC SCH (20:11)
[2019-12-29] MEDS: COMBIGAN OPHTHALM SCH (20:11)
[2019-12-30] VITALS: BP 103/69
[2019-12-30] MEDS: D5 1/4NS w/KCl 20mEq 1,000 ML IV SCH ×3 (02:45→13:27)
[2019-12-30 04:00] VITALS: BP 102/69
[2019-12-30] MEDS: Clindamycin 600mg 50 ML IV SCH ×3 (05:24→17:58)
[2019-12-30 06:26] LABS: BASOPHILS % (AUTO) 0.9 % (0.0-2.0); EOSINOPHILS % (AUTO) 11.4 % (0.0-3.0); HEMATOCRIT 35.6 % (42.0-52.0); HEMOGLOBIN 12.4 G/DL (14.2-18.0); LYMPHOCYTES % (AUTO) 15.1 % (20.0-45.0); MEAN CORPUSCULAR VOLUME 86 FL (80-99); MONOCYTES % (AUTO) 8.1 % (1.0-10.0); NEUTROPHILS % (AUTO) 64.4 % (45.0-75.0); PLATELET COUNT 210 K/UL (150-450); RED BLOOD COUNT 4.15 M/UL (4.70-6.10); RED CELL DISTRIBUTION WIDTH 11.3 % (11.6-14.8); WHITE BLOOD COUNT 5.7 K/UL (4.8-10.8)
[2019-12-30 07:02] LABS: ALANINE AMINOTRANSFERASE 11 U/L (12-78); ALBUMIN 2.6 G/DL (3.4-5.0); ALBUMIN/GLOBULIN RATIO 0.7 (1.0-2.7); ALKALINE PHOSPHATASE 77 U/L (46-116); BILIRUBIN,TOTAL 0.5 MG/DL (0.2-1.0); BLOOD UREA NITROGEN 4 mg/dL (7-18); CALCIUM 8.7 MG/DL (8.5-10.1); CARBON DIOXIDE 27 MMOL/L (21-32); CREATININE 0.9 MG/DL (0.55-1.30); PHOSPHORUS 3.9 MG/DL (2.5-4.9)
[2019-12-30 07:19] LABS: CHLORIDE 106 MMOL/L (98-107); POTASSIUM 4.1 MMOL/L (3.5-5.1); SODIUM 140 MMOL/L (136-145)
[2019-12-30] MEDS: PCA shift volume MISC SCH (07:36)
[2019-12-30] MEDS ORDERED: HYDROcodone/Acetamin 5/325 tab ORAL PRN (08:25)
--- NOTE | 2019-12-30 08:26 | General Progress Note ---
Progress Note Progress Note AVSS Feels well - not using WATER METER MECHANIC Abdomen soft, flat, incision clean Superior stoma separation with drainage - not enteric Urine 3325 BCIR ileo 615 labs all stable/satisf Imp: ileus resolved peristomal drainage Plan: Clear liquid diet, D/C WATER METER MECHANIC, decrease IV fluids remove urinary Trevino catheter maintain indwelling Quevedo pouch catheter to continuous drainage - change dressing am and qhs continue antibiotics - bowel opened for prolonged time during surgery so will give full course for presumed clinical peritonitis Cedrick Juarez MD Dec 30, 2019 08:26
[2019-12-30] MEDS: LOTEMAX 0.5% OPHTHALM SCH (08:31)
[2019-12-30 08:52] LABS: ASPARTATE AMINO TRANSFERASE 10 U/L (15-37)
[2019-12-30 12:00] VITALS: BP 127/82
[2019-12-30 16:00] VITALS: BP 112/74
[2019-12-30] MEDS ORDERED: Tubing IV Secondary IV ONE (18:02)
[2019-12-30 20:00] VITALS: BP 113/74
[2019-12-30] MEDS: Dyna-Hex 2% Top Sol 2oz TOPIC SCH (20:08)
[2019-12-30] MEDS: COMBIGAN OPHTHALM SCH (20:08)
[2019-12-31] VITALS: BP 109/69
[2019-12-31] MEDS: Clindamycin 600mg 50 ML IV SCH ×5 (00:03→23:45)
[2019-12-31 04:00] VITALS: BP 108/69
[2019-12-31] MEDS: D5 1/4NS w/KCl 20mEq 1,000 ML IV SCH (04:47)
[2019-12-31 05:54] LABS: ANION GAP 9 mmol/L (5-15); BLOOD UREA NITROGEN 5 mg/dL (7-18); CALCIUM 8.8 MG/DL (8.5-10.1); CARBON DIOXIDE 27 MMOL/L (21-32); CHLORIDE 103 MMOL/L (98-107); POTASSIUM 3.9 MMOL/L (3.5-5.1); SODIUM 139 MMOL/L (136-145)
[2019-12-31 05:56] LABS: EOSINOPHILS % (AUTO) 10.4 % (0.0-3.0); HEMATOCRIT 35.4 % (42.0-52.0); HEMOGLOBIN 12.3 G/DL (14.2-18.0); LYMPHOCYTES % (AUTO) 15.9 % (20.0-45.0); MEAN CORPUSCULAR VOLUME 86 FL (80-99); MONOCYTES % (AUTO) 8.6 % (1.0-10.0); NEUTROPHILS % (AUTO) 63.2 % (45.0-75.0); PLATELET COUNT 160 K/UL (150-450); RED BLOOD COUNT 4.14 M/UL (4.70-6.10); RED CELL DISTRIBUTION WIDTH 11.4 % (11.6-14.8); WHITE BLOOD COUNT 6.2 K/UL (4.8-10.8)
[2019-12-31 08:00] VITALS: BP 133/94
[2019-12-31] MEDS: LOTEMAX 0.5% OPHTHALM SCH (08:24)
--- NOTE | 2019-12-31 08:44 | General Progress Note ---
Progress Note Progress Note AVSS Tolerated clear liquid diet some pain left upper are above PICC line Abdomen soft, flat. Still some purulent drainage superior peristomal Urine 3165 BCIR ileo 840 Labs all satist/stable Imp: Peristomal wound drainage Plan; C&S sent again this AM continue IV antibiotics full liquid diet maintain indwelling Quevedo pouch catheter to drainage Cedrick Juarez MD Dec 31, 2019 08:44
[2019-12-31] MEDS ORDERED: LORazepam 1mg tab SL PRN (10:45)
[2019-12-31 11:53] VITALS: BP 111/74
[2019-12-31 16:00] VITALS: BP 96/72
--- NOTE | 2019-12-31 16:28 | Diagnostic Imaging Report ---
Indication: Left upper extremity pain Technique: Grayscale and duplex images of the left upper extremity veins Comparison: none Findings: Exam is limited; portions of the brachial vein could not be interrogated due to the presence of the PICC. Portions of the cephalic and basilic vein in the forearm could not be imaged due to the presence of bandages. Visualized venous segments are patent, including the internal jugular, subclavian, axillary, and upstream brachial vein, as well as the forearm veins. A cephalic vein could not be demonstrated in the upper arm. Impression: Limited exam, as described Nonvisualized upper arm cephalic vein, may be developmental or acquired No definite evidence of left upper extremity venous thrombosis otherwise
[2019-12-31 20:00] VITALS: BP 113/68
[2019-12-31] MEDS: Dyna-Hex 2% Top Sol 2oz TOPIC SCH (20:56)
[2019-12-31] MEDS: COMBIGAN OPHTHALM SCH (20:57)
[2020-01-01] VITALS: BP 111/68
[2020-01-01] MEDS: Clindamycin 600mg 50 ML IV SCH ×2 (05:15→12:05)
[2020-01-01 08:00] VITALS: BP 114/76
[2020-01-01] MEDS: LOTEMAX 0.5% OPHTHALM SCH ×2 (09:11→21:33)
--- NOTE | 2020-01-01 10:00 | General Progress Note ---
Progress Note Progress Note AVSS Tolerating full liquid diet. Still purulent mucous draining from superior border of stoma without cellulitis. C&S coag neg staph so far - still on levaquin and clindamycin Abdomen soft, flat Urine 1175 BCIR ileo 1465 (took 2600cc po) Imp: Peristomal drainage Plan: Maintain indwelling Quevedo pouch catheter to continuous drainage Continue full liquid diet ID Consultation re course of current antibiotics ?add'l needed re dr almonte f/u Cedrick Barbour MD Jan 01, 2020 10:00
[2020-01-01 12:00] VITALS: BP 110/75
--- NOTE | 2020-01-01 14:25 | Infectious Diseases Prog Note ---
Assessment/Plan Assessment/Plan Full consult to follow: A) 1) peristomal drainage, ? infection 2) culture with ground crewman x 2 3) pmh noted 4) allergies - pcn, tape P) 1) vancomycin, levofloxacin and flagyl 2) monitor drainage 3) continue treatment per Dr. Juarez 4) thank you Subjective Allergies: Coded Allergies: PENICILLINS (Verified Allergy, Intermediate, 01/07/19) ADHESIVE TAPE (Verified Adverse Reaction, Intermediate, Rash, 09/01/19) Objective Last 24 Hour Vital Signs Date Time Temp Pulse Resp B/P (MAP) Pulse Ox O2 Delivery O2 Flow Rate FiO2 01/01/20 12:00 97.6 79 18 110/75 (87) 98 01/01/20 09:00 Room Air 01/01/20 08:00 97.5 78 18 114/76 (89) 98 01/01/20 07:00 98 Room Air 21 01/01/20 00:00 97.8 78 16 111/68 (82) 97 12/31/19 21:00 Room Air 12/31/19 20:00 97.9 79 18 113/68 (83) 100 12/31/19 20:00 98 Room Air 21 12/31/19 16:00 98.4 97 16 96/72 (80) 95 Height (Feet): 5 Height (Inches): 9.00 Weight (Pounds): 158 Microbiology Date/Time Source Procedure Growth Status 12/31/19 08:45 Drainage Fluid Gram Stain - Final Resulted 12/31/19 08:45 Drainage Fluid Wound Culture - Preliminary NO GROWTH Resulted 12/30/19 12:50 Body Fluid Abdominal Gram Stain - Final Resulted 12/30/19 12:50 Body Fluid Culture - Preliminary Staphylococcus Sp Coag Neg Resulted Current Medications Medications (Trade) Dose Ordered Sig/Nikita Route PRN Reason Start Time Stop Time Status Last Admin Dose Admin Acetaminophen (Tylenol) 650 mg Q4H PRN ORAL Mild pain or temp over 100.2 12/25/19 10:45 01/24/20 10:44 Acetaminophen/ Hydrocodone Bitart ([place] 5/325) 1 tab Q4H PRN ORAL Moderate Pain (Pain Scale 4-6) 12/30/19 08:25 01/06/20 08:24 Ascorbic Acid (Vitamin C) 500 mg Q4H PRN ORAL THICK ILEOSTOMY OUTPUT 12/26/19 18:00 11/1/20 17:59 12/26/19 18:28 Chlorhexidine Gluconate (Amelie-Hex 2%) 1 applic DAILY@2000 TOPIC 12/24/19 20:00 03/23/20 19:59 12/31/19 20:56 Dextrose/ Electrolytes 1,000 ml @ 25 mls/hr Q24H IV 12/25/19 14:00 01/24/20 13:59 12/31/19 04:47 Diphenhydramine HCl (Benadryl) 50 mg Q4H PRN IVP Itching/Pruritis 12/26/19 08:44 01/25/20 08:43 Hydromorphone HCl (Dilaudid) 1 mg Q4H PRN SUBQ Severe Breakthru Pain (>7) 12/27/19 09:15 01/03/20 09:14 Levofloxacin 100 ml @ 100 mls/hr Q24H IVPB 01/01/20 06:00 01/08/20 05:59 01/01/20 06:10 Lorazepam (Ativan) 1 mg Q4H PRN SL Muscle Spasm 12/31/19 10:45 01/07/20 10:44 Metronidazole 100 ml @ 100 mls/hr Q8HR IVPB 01/01/20 22:00 01/08/20 21:59 Naloxone HCl (Narcan) 0.1 mg Q1M PRN IVP RR<10/min OR SBP<90 mmHg 12/26/19 08:39 03/25/20 08:37 Ondansetron HCl (Zofran) 4 mg Q4H PRN IVP Nausea & Vomiting 12/25/19 10:45 01/24/20 10:44 Patient Own Medication (Patient's Own Med) 1 ea BEDTIME OPHTHALM 12/24/19 21:00 01/23/20 20:59 12/31/19 20:57 Patient Own Medication (Patient's Own Med) 1 ea DAILY OPHTHALM 12/25/19 09:00 01/24/20 08:59 01/01/20 09:11 Temazepam (RestoriL) 7.5 mg HSPRN PRN ORAL Insomnia 12/31/19 21:00 01/07/20 20:59 Vancomycin HCl (Vanco pharmacy to dose) 1 ea DAILY PRN MISC Per rx protocol 01/01/20 14:15 01/31/20 14:14 Vancomycin HCl 750 mg/Sodium Chloride 275 ml @ 183.333 mls/hr Q12HR@0300,1500 IVPB 01/02/20 03:00 01/07/20 02:59 Vancomycin/Sodium Chloride 275 ml @ 137.5 mls/ hr ONCE ONCE IVPB 01/01/20 15:00 01/01/20 16:59 Lawrence Warner MD Jan 01, 2020 14:25
[2020-01-01] MEDS ORDERED: Vancomycin 1.5gm/NS Premix IVPB ONE (15:00)
[2020-01-01] MEDS: D5 1/4NS w/KCl 20mEq 1,000 ML IV SCH (15:36)
[2020-01-01 16:00] VITALS: BP 108/68
[2020-01-01 20:00] VITALS: BP 113/74
[2020-01-01] MEDS: Dyna-Hex 2% Top Sol 2oz TOPIC SCH (21:33)
[2020-01-01] MEDS: COMBIGAN OPHTHALM SCH (21:36)
[2020-01-02] MEDS: Vancomycin 750mg/NS 275ml IVPB SCH ×4 (03:05→15:50)
[2020-01-02 05:36] VITALS: BP 115/72
[2020-01-02 06:23] LABS: EOSINOPHILS % (AUTO) 11.3 % (0.0-3.0); HEMOGLOBIN 12.3 G/DL (14.2-18.0); LYMPHOCYTES % (AUTO) 15.7 % (20.0-45.0); MEAN CORPUSCULAR VOLUME 85 FL (80-99); MONOCYTES % (AUTO) 8.7 % (1.0-10.0); NEUTROPHILS % (AUTO) 62.2 % (45.0-75.0); PLATELET COUNT 258 K/UL (150-450); RED BLOOD COUNT 4.22 M/UL (4.70-6.10); RED CELL DISTRIBUTION WIDTH 11.2 % (11.6-14.8); WHITE BLOOD COUNT 6.6 K/UL (4.8-10.8)
[2020-01-02 07:09] LABS: ALANINE AMINOTRANSFERASE 13 U/L (12-78); ALBUMIN 2.8 G/DL (3.4-5.0); ALBUMIN/GLOBULIN RATIO 0.7 (1.0-2.7); ALKALINE PHOSPHATASE 79 U/L (46-116); ANION GAP 9 mmol/L (5-15); ASPARTATE AMINO TRANSFERASE 12 U/L (15-37); BILIRUBIN,TOTAL 0.4 MG/DL (0.2-1.0); BLOOD UREA NITROGEN 10 mg/dL (7-18); CALCIUM 8.7 MG/DL (8.5-10.1); CARBON DIOXIDE 27 MMOL/L (21-32); CHLORIDE 103 MMOL/L (98-107); CREATININE 1.1 MG/DL (0.55-1.30); PHOSPHORUS 3.5 MG/DL (2.5-4.9); POTASSIUM 3.9 MMOL/L (3.5-5.1); SODIUM 139 MMOL/L (136-145)
[2020-01-02 08:00] VITALS: BP 120/73
[2020-01-02] MEDS ORDERED: NS 500ML ONE (08:43)
[2020-01-02] MEDS ORDERED: Tubing IV Secondary IV ONE (08:43)
[2020-01-02] MEDS ORDERED: NS Irrig 1000ml ONE (08:43)
[2020-01-02] MEDS ORDERED: Sterile Water Irrig 1000ml IRRIG ONE (08:53)
--- NOTE | 2020-01-02 09:04 | General Progress Note ---
Progress Note Progress Note AVSS No c/o pain. tolerating full liquid diet + supplements Abdomen soft, incision clean, peristomal skin normal, small cavity superior margin, decreased drainage Now on Levaquin,Flagyl and Vancomycin Urine 1820 BCIR ileo 1750 labs all stable - albumin up to 2.8 Imp: Improved Plan: Continue IV antibiotics and peristomal wound care Maintain indwelling Quevedo pouch catheter to continuous drainage Continue full liquid diet Cedrick Juarez MD Jan 02, 2020 09:04
[2020-01-02] MEDS: LOTEMAX 0.5% OPHTHALM SCH (10:38)
[2020-01-02 12:00] VITALS: BP 114/75
[2020-01-02] MEDS: D5 1/4NS w/KCl 20mEq 1,000 ML IV SCH (15:55)
[2020-01-02 16:00] VITALS: BP 100/66
--- NOTE | 2020-01-02 17:39 | Infectious Diseases Prog Note ---
Assessment/Plan Assessment/Plan Full consult dictated: A) 1) peristomal drainage, ? infection 2) culture with coag neg staph x 3 3) pmh noted 4) allergies - pcn, tape P) 1) vancomycin, levofloxacin and flagyl 2) monitor drainage - less today 3) continue treatment per Dr. Juarez 4) will f/u Subjective Constitutional: Denies: fever HEENT: Denies: congestion Respiratory: Denies: shortness of breath Cardiovascular: Denies: chest pain Allergies: Coded Allergies: PENICILLINS (Verified Allergy, Intermediate, 01/07/19) ADHESIVE TAPE (Verified Adverse Reaction, Intermediate, Rash, 09/01/19) Objective Last 24 Hour Vital Signs Date Time Temp Pulse Resp B/P (MAP) Pulse Ox O2 Delivery O2 Flow Rate FiO2 01/02/20 16:00 98.2 83 18 100/66 (77) 99 01/02/20 12:00 97.5 85 19 114/75 (88) 99 01/02/20 09:00 Room Air 01/02/20 08:00 98.3 82 19 120/73 (89) 99 01/02/20 07:50 100 Room Air 21 01/02/20 05:36 97.3 74 18 115/72 (86) 98 01/02/20 00:00 18 01/01/20 21:00 Room Air 01/01/20 20:00 98.1 85 20 113/74 (87) 98 01/01/20 19:00 98 Room Air 21 Height (Feet): 5 Height (Inches): 9.00 Weight (Pounds): 158 General Appearance: no acute distress HEENT: normocephalic, atraumatic, anicteric Respiratory/Chest: lungs clear, normal breath sounds Cardiovascular: normal rate, regular rhythm Abdomen: normal bowel sounds, soft, non tender, no organomegaly, other - less peristomal drainage Microbiology Date/Time Source Procedure Growth Status 12/31/19 08:45 Drainage Fluid Gram Stain - Final Complete 12/31/19 08:45 Wound Culture - Final Staphylococcus Sp Coag Neg Complete Laboratory Tests Test 01/02/20 05:45 White Blood Count 6.6 K/UL (4.8-10.8) Red Blood Count 4.22 M/UL (4.70-6.10) L Hemoglobin 12.3 G/DL (14.2-18.0) L Hematocrit 36.0 % (42.0-52.0) L Mean Corpuscular Volume 85 FL (80-99) Mean Corpuscular Hemoglobin 29.0 PG (27.0-31.0) Mean Corpuscular Hemoglobin Concent 34.1 G/DL (32.0-36.0) Red Cell Distribution Width 11.2 % (11.6-14.8) L Platelet Count 258 K/UL (150-450) Mean Platelet Volume 6.1 FL (6.5-10.1) L Neutrophils (%) (Auto) 62.2 % (45.0-75.0) Lymphocytes (%) (Auto) 15.7 % (20.0-45.0) L Monocytes (%) (Auto) 8.7 % (1.0-10.0) Eosinophils (%) (Auto) 11.3 % (0.0-3.0) H Basophils (%) (Auto) 2.0 % (0.0-2.0) Sodium Level 139 MMOL/L (136-145) Potassium Level 3.9 MMOL/L (3.5-5.1) Chloride Level 103 MMOL/L (98-107) Carbon Dioxide Level 27 MMOL/L (21-32) Anion Gap 9 mmol/L (5-15) Blood Urea Nitrogen 10 mg/dL (7-18) Creatinine 1.1 MG/DL (0.55-1.30) Estimat Glomerular Filtration Rate > 60 mL/min (>60) Glucose Level 101 MG/DL (74-106) Calcium Level 8.7 MG/DL (8.5-10.1) Phosphorus Level 3.5 MG/DL (2.5-4.9) Magnesium Level 2.0 MG/DL (1.8-2.4) Total Bilirubin 0.4 MG/DL (0.2-1.0) Aspartate Amino Transf (AST/SGOT) 12 U/L (15-37) L Alanine Aminotransferase (ALT/SGPT) 13 U/L (12-78) Alkaline Phosphatase 79 U/L (46-116) Total Protein 6.6 G/DL (6.4-8.2) Albumin 2.8 G/DL (3.4-5.0) L Globulin 3.8 g/dL Albumin/Globulin Ratio 0.7 (1.0-2.7) L Current Medications Medications (Trade) Dose Ordered Sig/Nikita Route PRN Reason Start Time Stop Time Status Last Admin Dose Admin Acetaminophen (Tylenol) 650 mg Q4H PRN ORAL Mild pain or temp over 100.2 12/25/19 10:45 01/24/20 10:44 Acetaminophen/ Hydrocodone Bitart ([place] 5/325) 1 tab Q4H PRN ORAL Moderate Pain (Pain Scale 4-6) 12/30/19 08:25 01/06/20 08:24 Ascorbic Acid (Vitamin C) 500 mg Q4H PRN ORAL THICK ILEOSTOMY OUTPUT 12/26/19 18:00 01/25/20 17:59 12/26/19 18:28 Chlorhexidine Gluconate (Amelie-Hex 2%) 1 applic DAILY@2000 TOPIC 12/24/19 20:00 03/23/20 19:59 01/01/20 21:33 Dextrose/ Electrolytes 1,000 ml @ 25 mls/hr Q24H IV 12/25/19 14:00 01/24/20 13:59 01/02/20 15:55 Diphenhydramine HCl (Benadryl) 50 mg Q4H PRN IVP Itching/Pruritis 12/26/19 08:44 01/25/20 08:43 Hydromorphone HCl (Dilaudid) 1 mg Q4H PRN SUBQ Severe Breakthru Pain (>7) 12/27/19 09:15 01/03/20 09:14 Levofloxacin 100 ml @ 100 mls/hr Q24H IVPB 01/01/20 06:00 01/08/20 05:59 01/02/20 06:13 Lorazepam (Ativan) 1 mg Q4H PRN SL Muscle Spasm 12/31/19 10:45 01/07/20 10:44 Metronidazole 100 ml @ 100 mls/hr Q8HR IVPB 01/01/20 22:00 01/08/20 21:59 01/02/20 13:33 Naloxone HCl (Narcan) 0.1 mg Q1M PRN IVP RR<10/min OR SBP<90 mmHg 12/26/19 08:39 03/25/20 08:37 Ondansetron HCl (Zofran) 4 mg Q4H PRN IVP Nausea & Vomiting 12/25/19 10:45 01/24/20 10:44 Patient Own Medication (Patient's Own Med) 1 ea BEDTIME OPHTHALM 12/24/19 21:00 01/23/20 20:59 01/01/20 21:36 Patient Own Medication (Patient's Own Med) 1 ea DAILY OPHTHALM 12/25/19 09:00 01/24/20 08:59 01/02/20 10:38 Temazepam (RestoriL) 7.5 mg HSPRN PRN ORAL Insomnia 12/31/19 21:00 01/07/20 20:59 Vancomycin HCl ([facility] pharmacy to dose) 1 ea DAILY PRN MISC Per rx protocol 01/01/20 14:15 01/31/20 14:14 Vancomycin HCl 750 mg/Sodium Chloride 275 ml @ 183.333 mls/hr Q12HR@0300,1500 IVPB 01/02/20 03:00 01/07/20 02:59 01/02/20 15:50 Lawrence Warner MD Jan 02, 2020 17:39
[2020-01-02 20:00] VITALS: BP 105/66
[2020-01-02] MEDS: Dyna-Hex 2% Top Sol 2oz TOPIC SCH (20:00)
[2020-01-02] MEDS: COMBIGAN OPHTHALM SCH (20:00)
--- NOTE | 2020-01-02 21:15 | Consultation ---
DATE OF CONSULTATION: 01/02/2020 INFECTIOUS DISEASE CONSULTATION CONSULTING PHYSICIAN: Lawrence Warner MD. ATTENDING PHYSICIAN: Cedrick Juarez MD. REFERRING PHYSICIAN: Cedrick Juarez MD. REASON FOR CONSULTATION: Peristomal wound drainage, possible abdominal wall wound infection. 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 HISTORY OF PRESENT ILLNESS: This is a very pleasant 69-year-old male who comes into [facility]. 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 He also had incontinence. The patient underwent surgery on December 25, 2019 for the malfunction of Quevedo continent ileostomy with fistula and recurrent peristomal infection and fistula to access segment. The patient had a laparotomy with resection of Quevedo pouch collar, fistula and repair of the access segment with revision of stoma and access segment in-depth. The patient has some peristomal drainage. It is unclear if the patient has abdominal wall wound infection. Multiple cultures have grown out coagulase-negative Staph. He was on clindamycin and Levaquin. I changed it to vancomycin, Levaquin, and Flagyl. Infectious Disease consultation is requested for antibiotic management in a patient with the peristomal drainage, possible abdominal wall wound infection. The patient was seen yesterday. With the vancomycin added, the drainage has since been less. No cellulitis noted. The patient will be continued on vancomycin, Levaquin, and Flagyl for now. REVIEW OF SYSTEMS: CONSTITUTIONAL: He has no fever, chills, night sweats, or weight loss. HEAD AND NECK: No head pain, neck pain, thrush, or dysphagia. CARDIAC: No chest pain. GASTROINTESTINAL: No nausea or vomiting. He has no significant abdominal pain. He has the peristomal drainage. PULMONARY: No cough, congestion, or shortness of breath. SKIN: No rash or dermatitis. MUSCULOSKELETAL: No extremity pain. No joint pain. NEUROLOGICAL: No seizures. No CVA tenderness. No fatigue or focal weakness. No rash or seizure activity. PAST MEDICAL HISTORY: The patient has a past medical history of Quevedo continent ileostomy. As discussed, he had the malfunctioning ileostomy with fistula. He has history of ulcerative colitis, history of thyroidectomy, history of multiple abdominal operations including colectomy, ileostomy, history of revision of Quevedo continent ileostomy in the past. There is no diabetes or hypertension mentioned. ALLERGIES: Include penicillin and adhesive tape. He does not remember what type of allergy he had, but adhesive tape and penicillin are allergies. SOCIAL HISTORY: Negative for smoking, alcohol, or drug abuse. FAMILY HISTORY: Noncontributory. Negative for tuberculosis or cancer. MEDICATIONS: Upon reviewing the MAR, he is on following medications. He is on vancomycin, metronidazole. He is on Levaquin. He was on clindamycin, which I discontinued. He is on IV fluids, lorazepam, hydrocodone, morphine as needed, Dilaudid as needed, ascorbic acid, temazepam, diphenhydramine as needed, and naloxone as needed. Antibiotics are vancomycin, Levaquin, and Flagyl. Zofran and acetaminophen also. Outside medications noted and reconciliated. PHYSICAL EXAMINATION: VITAL SIGNS: Temperature is 98.2, pulse 83, respiratory rate 18, blood pressure 100/66. Saturation is 99% on room air. GENERAL: Alert and responsive, in no distress, oriented x3 HEAD AND NECK: Oral exam, no thrush. Eye exam, no icterus. Normocephalic. Neck is supple. No JVD. HEART: Regular. No gallop or murmur. LUNGS: Clear bilaterally. No rhonchi or rales. ABDOMEN: Soft. Positive bowel sounds. Nontender. SKIN: No rash. With regard to the incision, it looks clean and dry. The peristomal site had drainage yesterday and less today. MUSCULOSKELETAL: No effusions. Legs are without cellulitis. PERIPHERAL VASCULAR: No cyanosis or gangrene. GENITOURINARY: No Trevino. LINE SITES: Without phlebitis. NEUROLOGIC: Intact. Alert and oriented. Nonfocal. LABORATORY DATA: White count 6.6, hemoglobin 12.3. Creatinine 1.1. LFTs noted. UA previously was negative. IMAGING STUDIES: Initial chest x-ray showed no acute cardiopulmonary disease . PICC line was placed. MICROANALYSIS: Cultures - multiple cultures of the wound drainage or fistula drainage. The wound culture had coag-negative staph. The abdominal fluid drainage again coag-negative staph that grew out. This was actually from the fistula also, initially on the surgery. Multiple cultures, coagulase-negative staph. ASSESSMENT AND PLAN: 1. The patient had peristomal drainage, possibly infected. It looks like with multiple cultures growing coag-negative Staph, this certainly could be a pathogen. He was on clindamycin and Levaquin, I switched him to vancomycin, Levaquin, and Flagyl yesterday. With the vancomycin, Levaquin, and Flagyl it seems that the drainage is less. Dr. Juarez's note was reviewed and it seems overall less drainage. It looks like during the operation or revision, the cultures also grew out coagulase-negative Staph. At this time, we will continue vancomycin, Levaquin, and Flagyl, day #2 of antibiotic combination for the possible looks like coagulase-negative staph infection with peristomal drainage and possible abdominal wall wound infection. Monitor the patient's laboratories, monitor the patient clinically, monitor drainage for now. 2. 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 The patient is status post laparotomy with resection of the Quevedo pouch collar, fistula, and repair of access segment with revision of stoma and access segment in-depth. 3. The patient has a history of multiple abdominal surgeries. 4. History of ulcerative colitis. 5. History of colectomy. 6. History of ileostomy. 7. History of Quevedo continent ileostomy. 8. History of revision. 9. No diabetes or hypertension. 10. Continue treatment per Dr. Juarez and consultants. 11. Allergies to adhesive tape and penicillin. 12. Social history is negative. 13. Family history is noncontributory. 14. MAR was noted. 15. Case discussed with RN. 16. Case discussed with the patient. 17. Case communicated with Dr. Juarez. Lawrence Warner M.D. DR: TERESE JOB#: [id number] CC:
[2020-01-03] MEDS: Vancomycin 750mg/NS 275ml IVPB SCH ×4 (02:40→15:18)
[2020-01-03 04:00] VITALS: BP 104/70
[2020-01-03 08:00] VITALS: BP 102/64
[2020-01-03] MEDS ORDERED: Ascorbic Acid 500mg tab ORAL PRN (09:30)
--- NOTE | 2020-01-03 09:43 | General Progress Note ---
Progress Note Progress Note AVSS No c/o pain. tolerating full liquid diet. Mild thrush Abdomen soft, incision clean. Continued peristomal mucous drainage - no enteric fluid. Mild mucosal retraction superior margin. Indwelling Quevedo ileo pouch catheter in place, draining well Urine 2400 BCIR ileo 1620 Labs all satisf with albumin up to 2.8 On Vanco, Levaquin and flagyl Imp: Peristomal wound infection with partial mucosal retraction Plan: Continue Iv antibiotics fluconazole po x 1, Nystatin po continue peristomal wound care and maintain indwelling pouch catheter [facility] low residue diet Cedrick Juarez MD Jan 03, 2020 09:42
[2020-01-03] MEDS: LOTEMAX 0.5% OPHTHALM SCH (09:47)
[2020-01-03] MEDS: Nystatin Susp 500,000 units/5ml ORAL SCH ×4 (09:55→20:48)
[2020-01-03] MEDS ORDERED: Fluconazole 150mg tab ORAL SCH (10:00)
[2020-01-03] MEDS ORDERED: Fluconazole 100mg tab ORAL SCH (10:00)
[2020-01-03 12:00] VITALS: BP 116/74
[2020-01-03 15:26] VITALS: BP 104/63
[2020-01-03 20:00] VITALS: BP 108/65
[2020-01-03] MEDS: COMBIGAN OPHTHALM SCH (20:48)
[2020-01-03] MEDS: Dyna-Hex 2% Top Sol 2oz TOPIC SCH (20:48)
[2020-01-04] MEDS: Vancomycin 750mg/NS 275ml IVPB SCH ×4 (02:59→15:21)
[2020-01-04 05:30] VITALS: BP 133/58
[2020-01-04 07:51] LABS: BASOPHILS % (AUTO) 2.1 % (0.0-2.0); EOSINOPHILS % (AUTO) 9.7 % (0.0-3.0); HEMATOCRIT 36.2 % (42.0-52.0); HEMOGLOBIN 13.1 G/DL (14.2-18.0); LYMPHOCYTES % (AUTO) 15.9 % (20.0-45.0); MEAN CORPUSCULAR VOLUME 85 FL (80-99); MONOCYTES % (AUTO) 6.7 % (1.0-10.0); NEUTROPHILS % (AUTO) 65.6 % (45.0-75.0); PLATELET COUNT 303 K/UL (150-450); RED BLOOD COUNT 4.25 M/UL (4.70-6.10); RED CELL DISTRIBUTION WIDTH 11.3 % (11.6-14.8); WHITE BLOOD COUNT 6.7 K/UL (4.8-10.8)
[2020-01-04 08:00] VITALS: BP 106/65
[2020-01-04 08:10] LABS: ALANINE AMINOTRANSFERASE 11 U/L (12-78); ALBUMIN 3.1 G/DL (3.4-5.0); ALBUMIN/GLOBULIN RATIO 0.8 (1.0-2.7); ALKALINE PHOSPHATASE 87 U/L (46-116); ANION GAP 6 mmol/L (5-15); ASPARTATE AMINO TRANSFERASE 13 U/L (15-37); BILIRUBIN,TOTAL 0.3 MG/DL (0.2-1.0); BLOOD UREA NITROGEN 14 mg/dL (7-18); CARBON DIOXIDE 29 MMOL/L (21-32); CHLORIDE 105 MMOL/L (98-107); SODIUM 140 MMOL/L (136-145)
[2020-01-04] MEDS ORDERED: NS Irrig 1000ml ONE (08:48)
[2020-01-04] MEDS ORDERED: Tubing IV Secondary IV ONE (08:48)
[2020-01-04] MEDS: LOTEMAX 0.5% OPHTHALM SCH (09:12)
[2020-01-04] MEDS: Nystatin Susp 500,000 units/5ml ORAL SCH ×4 (09:12→20:14)
--- NOTE | 2020-01-04 09:52 | General Progress Note ---
Progress Note Progress Note AVSS Continued peristomal drainage but more serous and less purulent. No cellulitis, Small subcutaneous cavity. Abdomen soft, incision clean Urine 2079 BCIR ileo 1714 Tolerating BCIR low residue diet Imp: Quevedo pouch peristomal infection, improving slowly Plan: continue levaquin,flagyl,vanco per ID maintain indwelling pouch catheter to continuous drainage continue wound care by RNs f/u labs Cedrick Juarez MD Jan 04, 2020 09:52
[2020-01-04] MEDS ORDERED: HYDROcodone/Acetamin 5/325 tab ORAL PRN (10:00)
[2020-01-04 12:00] VITALS: BP 110/67
[2020-01-04 16:00] VITALS: BP 108/66
--- NOTE | 2020-01-04 17:31 | Infectious Diseases Prog Note ---
Assessment/Plan Assessment/Plan ASSESSMENT AND PLAN: 1. coag neg staph peristomal infection, ? infected wound - vancomycin, levofloxacin and flagyl - day # 4 abx combination - clinically slowly improving - monitor labs - management per Dr. Juarez - d/w RN and patient 2. 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 The patient is status post laparotomy with resection of the Quevedo pouch collar, fistula, and repair of access segment with revision of stoma and access segment in-depth. 3. The patient has a history of multiple abdominal surgeries. 4. History of ulcerative colitis. 5. History of colectomy. 6. History of ileostomy. 7. History of Quevedo continent ileostomy. 8. History of revision. 9. No diabetes or hypertension. 10. Continue treatment per Dr. Juarez and consultants. 11. Allergies to adhesive tape and penicillin. 12. Social history is negative. 13. Family history is noncontributory. 14. MAR was noted. 15. Case discussed with RN. 16. Case discussed with the patient. 17. Case communicated with Dr. Juarez. Subjective Constitutional: Denies: fever HEENT: Denies: congestion Respiratory: Denies: shortness of breath Cardiovascular: Denies: chest pain Gastrointestinal/Abdominal: Denies: nausea, vomiting Genitourinary: Reports: other Neurologic: Denies: headache, weakness Psychiatric: Reports: other - NA Skin: Denies: rash Hematologic: Denies: bleeding Musculoskeletal: Denies: pain Allergies: Coded Allergies: PENICILLINS (Verified Allergy, Intermediate, 01/07/19) ADHESIVE TAPE (Verified Adverse Reaction, Intermediate, Rash, 09/01/19) Objective Last 24 Hour Vital Signs Date Time Temp Pulse Resp B/P (MAP) Pulse Ox O2 Delivery O2 Flow Rate FiO2 01/04/20 12:00 97.5 82 16 110/67 (81) 99 01/04/20 09:00 Room Air 01/04/20 08:00 98.1 81 16 106/65 (79) 98 01/04/20 07:00 99 Room Air 21 01/04/20 05:30 97.6 74 16 133/58 (83) 97 01/03/20 21:00 Room Air 01/03/20 20:00 97.7 80 16 108/65 (79) 98 01/03/20 19:54 97 Room Air 21 Height (Feet): 5 Height (Inches): 9.00 Weight (Pounds): 158 General Appearance: no acute distress HEENT: normocephalic, atraumatic, anicteric, mucous membranes moist Respiratory/Chest: lungs clear, normal breath sounds, no respiratory distress Cardiovascular: normal rate, regular rhythm, no gallop/murmur, no JVD Abdomen: normal bowel sounds, soft, non tender, no organomegaly, non distended Genitourinary: other - no izquierdo Extremities: no cyanosis Skin: no rash, other - incistion/wounds - covered - less drainage per surgery notes Neurologic/Psychiatric: photo retoucher II-XII grossly normal, alert Lymphatic: no neck adenopathy Musculoskeletal: no effusion Chest x-ray - Procedure: XRAY Chest 1v Indication: Cough Technique: One view of the chest Comparison: 09/01/2019 Findings: Minimal scarring at the right lung base appears similar to the previous exam. Lungs and pleural spaces are otherwise clear. The heart size is normal. No significant change Impression: No acute process Microbiology Date/Time Source Procedure Growth Status 12/31/19 08:45 Drainage Fluid Gram Stain - Final Complete 12/31/19 08:45 Wound Culture - Final Staphylococcus Sp Coag Neg Complete 12/25/19 08:48 Abdominal Fluid Gram Stain - Final Complete 12/25/19 08:48 Aerobic Culture - Final Staphylococcus Sp Coag Neg Complete 12/25/19 08:48 Abdominal Fluid Anaerobic Culture - Final NO ANAEROBES ISOLATED Complete 12/24/19 10:35 Nasopharynx SARS-CoV-2 RdRp Gene Assay - Final Complete Laboratory Tests Test 01/04/20 07:25 White Blood Count 6.7 K/UL (4.8-10.8) Red Blood Count 4.25 M/UL (4.70-6.10) L Hemoglobin 13.1 G/DL (14.2-18.0) L Hematocrit 36.2 % (42.0-52.0) L Mean Corpuscular Volume 85 FL (80-99) Mean Corpuscular Hemoglobin 30.8 PG (27.0-31.0) Mean Corpuscular Hemoglobin Concent 36.1 G/DL (32.0-36.0) H Red Cell Distribution Width 11.3 % (11.6-14.8) L Platelet Count 303 K/UL (150-450) Mean Platelet Volume 6.2 FL (6.5-10.1) L Neutrophils (%) (Auto) 65.6 % (45.0-75.0) Lymphocytes (%) (Auto) 15.9 % (20.0-45.0) L Monocytes (%) (Auto) 6.7 % (1.0-10.0) Eosinophils (%) (Auto) 9.7 % (0.0-3.0) H Basophils (%) (Auto) 2.1 % (0.0-2.0) H Sodium Level 140 MMOL/L (136-145) Potassium Level 4.0 MMOL/L (3.5-5.1) Chloride Level 105 MMOL/L (98-107) Carbon Dioxide Level 29 MMOL/L (21-32) Anion Gap 6 mmol/L (5-15) Blood Urea Nitrogen 14 mg/dL (7-18) Creatinine 1.0 MG/DL (0.55-1.30) Estimat Glomerular Filtration Rate > 60 mL/min (>60) Glucose Level 107 MG/DL (74-106) H Calcium Level 9.0 MG/DL (8.5-10.1) Total Bilirubin 0.3 MG/DL (0.2-1.0) Aspartate Amino Transf (AST/SGOT) 13 U/L (15-37) L Alanine Aminotransferase (ALT/SGPT) 11 U/L (12-78) L Alkaline Phosphatase 87 U/L (46-116) Total Protein 6.9 G/DL (6.4-8.2) Albumin 3.1 G/DL (3.4-5.0) L Globulin 3.8 g/dL Albumin/Globulin Ratio 0.8 (1.0-2.7) L Current Medications Medications (Trade) Dose Ordered Sig/Nikita Route PRN Reason Start Time Stop Time Status Last Admin Dose Admin Acetaminophen (Tylenol) 650 mg Q4H PRN ORAL Mild pain or temp over 100.2 12/25/19 10:45 01/24/20 10:44 Acetaminophen/ Hydrocodone Bitart ([place] 5/325) 1 tab Q4H PRN ORAL Moderate Pain (Pain Scale 4-6) 01/04/20 10:00 01/11/20 09:59 Ascorbic Acid (Vitamin C) 500 mg NEEDED PRN ORAL Constipation 01/03/20 09:30 02/02/20 09:29 Chlorhexidine Gluconate (Amelie-Hex 2%) 1 applic DAILY@2000 TOPIC 12/24/19 20:00 03/23/20 19:59 01/03/20 20:48 Diphenhydramine HCl (Benadryl) 50 mg Q4H PRN IVP Itching/Pruritis 12/26/19 08:44 01/25/20 08:43 Levofloxacin 100 ml @ 100 mls/hr Q24H IVPB 01/01/20 06:00 01/08/20 05:59 01/04/20 06:27 Lorazepam (Ativan) 1 mg Q4H PRN SL Muscle Spasm 12/31/19 10:45 01/07/20 10:44 Metronidazole 100 ml @ 100 mls/hr Q8HR IVPB 01/01/20 22:00 01/08/20 21:59 01/04/20 13:55 Naloxone HCl (Narcan) 0.1 mg Q1M PRN IVP RR<10/min OR SBP<90 mmHg 12/26/19 08:39 03/25/20 08:37 Nystatin (Nystatin) 5 ml QID ORAL 01/03/20 09:45 01/10/20 09:44 01/04/20 13:55 Ondansetron HCl (Zofran) 4 mg Q4H PRN IVP Nausea & Vomiting 12/25/19 10:45 01/24/20 10:44 Patient Own Medication (Patient's Own Med) 1 ea BEDTIME OPHTHALM 12/24/19 21:00 01/23/20 20:59 01/03/20 20:48 Patient Own Medication (Patient's Own Med) 1 ea DAILY OPHTHALM 12/25/19 09:00 01/24/20 08:59 01/04/20 09:12 Temazepam (RestoriL) 7.5 mg HSPRN PRN ORAL Insomnia 12/31/19 21:00 01/07/20 20:59 Vancomycin HCl ([facility] pharmacy to dose) 1 ea DAILY PRN MISC Per rx protocol 01/01/20 14:15 01/31/20 14:14 Vancomycin HCl 750 mg/Sodium Chloride 275 ml @ 183.333 mls/hr Q12HR@0300,1500 IVPB 01/02/20 03:00 01/07/20 02:59 01/04/20 15:21 Lawrence Warner MD Jan 04, 2020 17:31
[2020-01-04 20:00] VITALS: BP 109/68
[2020-01-04] MEDS: Dyna-Hex 2% Top Sol 2oz TOPIC SCH (20:14)
[2020-01-04] MEDS: COMBIGAN OPHTHALM SCH (20:14)
[2020-01-04] MEDS: Cathflo Alteplase 2mg Inj INJ PRN ×2 (22:01→22:10)
[2020-01-05] VITALS: BP 100/66
[2020-01-05] MEDS: Vancomycin 750mg/NS 275ml IVPB SCH ×4 (02:14→15:40)
[2020-01-05 04:00] VITALS: BP 122/57
[2020-01-05 06:58] LABS: BASOPHILS % (AUTO) 1.7 % (0.0-2.0); HEMATOCRIT 31.7 % (42.0-52.0); HEMOGLOBIN 10.9 G/DL (14.2-18.0); LYMPHOCYTES % (AUTO) 17.7 % (20.0-45.0); MEAN CORPUSCULAR VOLUME 86 FL (80-99); MONOCYTES % (AUTO) 7.9 % (1.0-10.0); NEUTROPHILS % (AUTO) 63.8 % (45.0-75.0); PLATELET COUNT 268 K/UL (150-450); RED CELL DISTRIBUTION WIDTH 11.1 % (11.6-14.8)
[2020-01-05 07:12] LABS: ANION GAP 6 mmol/L (5-15); BLOOD UREA NITROGEN 16 mg/dL (7-18); CALCIUM 8.4 MG/DL (8.5-10.1); CARBON DIOXIDE 27 MMOL/L (21-32); CHLORIDE 107 MMOL/L (98-107); CREATININE 1.1 MG/DL (0.55-1.30); SODIUM 140 MMOL/L (136-145)
[2020-01-05 08:00] VITALS: BP 117/74
[2020-01-05] MEDS: LOTEMAX 0.5% OPHTHALM SCH (08:55)
[2020-01-05] MEDS: Nystatin Susp 500,000 units/5ml ORAL SCH ×4 (08:55→20:09)
[2020-01-05 12:00] VITALS: BP 110/94
--- NOTE | 2020-01-05 14:50 | General Progress Note ---
Progress Note Progress Note AVSS Doing well with po intake, on IV antibiotics Abdomen soft, incision clean. Stoma infection improved with less drainage, subcutaneous cavity smaller with packing 3xdaily Labs all stable Urine 2175 BCIR ileo 1720 Imp: Improving peristomal infection Plan; continue IV antibiotics and aggressive wound care maintain indwelling Quevedo pouch catheter to continuous drainage Cedrick Juarez MD Jan 05, 2020 14:50
[2020-01-05 16:00] VITALS: BP 94/66
[2020-01-05 20:00] VITALS: BP 105/62
[2020-01-05] MEDS: Dyna-Hex 2% Top Sol 2oz TOPIC SCH (20:09)
[2020-01-05] MEDS: COMBIGAN OPHTHALM SCH (20:10)
[2020-01-06] MEDS: Vancomycin 750mg/NS 275ml IVPB SCH ×4 (03:16→14:18)
[2020-01-06 03:59] VITALS: BP 103/64
[2020-01-06 08:00] VITALS: BP 122/76
[2020-01-06] MEDS: LOTEMAX 0.5% OPHTHALM SCH (08:28)
[2020-01-06] MEDS: Nystatin Susp 500,000 units/5ml ORAL SCH ×4 (08:28→21:12)
[2020-01-06 12:00] VITALS: BP 126/69
--- NOTE | 2020-01-06 13:04 | General Progress Note ---
Progress Note Progress Note AVSS Feels well - tolerating IV antibiotics Abdomen soft, incision clean, some claudia removed Stoma wound still draining small amounts but no surrounding cellulitis or erythema Urine 1825 [facility]IR ileo 1420 Imp: Stable Plan; Maintain indwelling Quevedo pouch catheter - replace in AM Will discuss course of antibiotics with ID Cedrick Juarez MD Jan 06, 2020 13:04
[2020-01-06 16:00] VITALS: BP 97/63
--- NOTE | 2020-01-06 16:19 | Infectious Diseases Prog Note ---
Assessment/Plan Assessment/Plan ASSESSMENT AND PLAN: 1. coag neg staph peristomal infection, ? infected wound - vancomycin, levofloxacin and flagyl - day # 6 abx combination - d/w microbiology - check sensitivities of gaming director for potential oral anti- biotics - communicated with Dr. Juarez - abx course close to finishing by Sunday and can give oral abx upon discharge - clinically slowly improving - mild drainage, no cellulitis - monitor labs - management per Dr. Juarez - d/w RN and patient 2. 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 The patient is status post laparotomy with resection of the Quevedo pouch collar, fistula, and repair of access segment with revision of stoma and access segment in-depth. 3. The patient has a history of multiple abdominal surgeries. 4. History of ulcerative colitis. 5. History of colectomy. 6. History of ileostomy. 7. History of Quevedo continent ileostomy. 8. History of revision. 9. No diabetes or hypertension. 10. Continue treatment per Dr. Juarez and consultants. 11. Allergies to adhesive tape and penicillin. 12. Social history is negative. 13. Family history is noncontributory. 14. MAR was noted. 15. Case discussed with RN. 16. Case discussed with the patient. 17. Case communicated with Dr. Juarez. Subjective Constitutional: Denies: fever HEENT: Denies: congestion Respiratory: Denies: shortness of breath Cardiovascular: Denies: chest pain Gastrointestinal/Abdominal: Denies: nausea Genitourinary: Denies: dysuria, hematuria, frequency Neurologic: Denies: headache Psychiatric: Denies: depression Skin: Denies: rash Hematologic: Denies: bleeding Musculoskeletal: Denies: pain Allergies: Coded Allergies: PENICILLINS (Verified Allergy, Intermediate, 01/07/19) ADHESIVE TAPE (Verified Adverse Reaction, Intermediate, Rash, 09/01/19) Objective Last 24 Hour Vital Signs Date Time Temp Pulse Resp B/P (MAP) Pulse Ox O2 Delivery O2 Flow Rate FiO2 01/06/20 12:00 98.4 86 18 126/69 (88) 96 01/06/20 09:00 Room Air 01/06/20 08:00 97.4 20 20 122/76 (91) 99 01/06/20 03:59 98.4 80 17 103/64 (77) 97 01/05/20 21:00 Room Air 01/05/20 20:00 98.4 83 16 105/62 (76) 97 Height (Feet): 5 Height (Inches): 9.00 Weight (Pounds): 158 General Appearance: no acute distress HEENT: normocephalic, atraumatic, anicteric, mucous membranes moist, EOMI, supple, no JVD Respiratory/Chest: lungs clear, normal breath sounds, no respiratory distress, no accessory muscle use Cardiovascular: normal rate, regular rhythm, no gallop/murmur, no JVD Abdomen: normal bowel sounds, soft, non tender, no organomegaly, non distended, other - incision covered - per surgery note - mild drainage but no cellulitis/erythema Genitourinary: other - no izquierdo Extremities: no cyanosis Skin: no rash Neurologic/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 Lungs and pleural spaces are otherwise clear. The heart size is normal. No significant change Impression: No acute process Microbiology Date/Time Source Procedure Growth Status 12/31/19 08:45 Drainage Fluid Gram Stain - Final Complete 12/31/19 08:45 Wound Culture - Final Staphylococcus Sp Coag Neg Complete 12/25/19 08:48 Abdominal Fluid Gram Stain - Final Complete 12/25/19 08:48 Aerobic Culture - Final Staphylococcus Sp Coag Neg Complete 12/25/19 08:48 Abdominal Fluid Anaerobic Culture - Final NO ANAEROBES ISOLATED Complete 12/24/19 10:35 Nasopharynx SARS-CoV-2 RdRp Gene Assay - Final Complete Labs Test 01/04/20 07:25 01/05/20 04:00 White Blood Count 6.7 K/UL (4.8-10.8) 7.0 K/UL (4.8-10.8) Red Blood Count 4.25 M/UL (4.70-6.10) 3.70 M/UL (4.70-6.10) Hemoglobin 13.1 G/DL (14.2-18.0) 10.9 G/DL (14.2-18.0) Hematocrit 36.2 % (42.0-52.0) 31.7 % (42.0-52.0) Mean Corpuscular Volume 85 FL (80-99) 86 FL (80-99) Mean Corpuscular Hemoglobin 30.8 PG (27.0-31.0) 29.6 PG (27.0-31.0) Mean Corpuscular Hemoglobin Concent 36.1 G/DL (32.0-36.0) 34.5 G/DL (32.0-36.0) Red Cell Distribution Width 11.3 % (11.6-14.8) 11.1 % (11.6-14.8) Platelet Count 303 K/UL (150-450) 268 K/UL (150-450) Mean Platelet Volume 6.2 FL (6.5-10.1) 6.0 FL (6.5-10.1) Neutrophils (%) (Auto) 65.6 % (45.0-75.0) 63.8 % (45.0-75.0) Lymphocytes (%) (Auto) 15.9 % (20.0-45.0) 17.7 % (20.0-45.0) Monocytes (%) (Auto) 6.7 % (1.0-10.0) 7.9 % (1.0-10.0) Eosinophils (%) (Auto) 9.7 % (0.0-3.0) 9.0 % (0.0-3.0) Basophils (%) (Auto) 2.1 % (0.0-2.0) 1.7 % (0.0-2.0) Sodium Level 140 MMOL/L (136-145) 140 MMOL/L (136-145) Potassium Level 4.0 MMOL/L (3.5-5.1) 4.0 MMOL/L (3.5-5.1) Chloride Level 105 MMOL/L (98-107) 107 MMOL/L (98-107) Carbon Dioxide Level 29 MMOL/L (21-32) 27 MMOL/L (21-32) Anion Gap 6 mmol/L (5-15) 6 mmol/L (5-15) Blood Urea Nitrogen 14 mg/dL (7-18) 16 mg/dL (7-18) Creatinine 1.0 MG/DL (0.55-1.30) 1.1 MG/DL (0.55-1.30) Estimat Glomerular Filtration Rate > 60 mL/min (>60) > 60 mL/min (>60) Glucose Level 107 MG/DL (74-106) 98 MG/DL (74-106) Calcium Level 9.0 MG/DL (8.5-10.1) 8.4 MG/DL (8.5-10.1) Total Bilirubin 0.3 MG/DL (0.2-1.0) Aspartate Amino Transf (AST/SGOT) 13 U/L (15-37) Alanine Aminotransferase (ALT/SGPT) 11 U/L (12-78) Alkaline Phosphatase 87 U/L (46-116) Total Protein 6.9 G/DL (6.4-8.2) Albumin 3.1 G/DL (3.4-5.0) Globulin 3.8 g/dL Albumin/Globulin Ratio 0.8 (1.0-2.7) Current Medications Medications (Trade) Dose Ordered Sig/Nikita Route PRN Reason Start Time Stop Time Status Last Admin Dose Admin Acetaminophen (Tylenol) 650 mg Q4H PRN ORAL Mild pain or temp over 100.2 12/25/19 10:45 01/24/20 10:44 Acetaminophen/ Hydrocodone Bitart ([place] 5/325) 1 tab Q4H PRN ORAL Moderate Pain (Pain Scale 4-6) 01/04/20 10:00 01/11/20 09:59 Alteplase, Recombinant (Cathflo) 2 mg PRN PRN INJ for line flush 01/04/20 20:00 04/03/20 19:59 01/04/20 22:10 Ascorbic Acid (Vitamin C) 500 mg NEEDED PRN ORAL Constipation 01/03/20 09:30 02/02/20 09:29 01/06/20 08:28 Chlorhexidine Gluconate (Amelie-Hex 2%) 1 applic DAILY@1999 TOPIC 12/24/19 20:00 03/23/20 19:59 01/05/20 20:09 Diphenhydramine HCl (Benadryl) 50 mg Q4H PRN IVP Itching/Pruritis 12/26/19 08:44 01/25/20 08:43 Levofloxacin 100 ml @ 100 mls/hr Q24H IVPB 01/01/20 06:00 01/08/20 05:59 01/06/20 05:25 Metronidazole 100 ml @ 100 mls/hr Q8HR IVPB 01/01/20 22:00 01/08/20 21:59 01/06/20 14:18 Naloxone HCl (Narcan) 0.1 mg Q1M PRN IVP RR<10/min OR SBP<90 mmHg 12/26/19 08:39 03/25/20 08:37 Nystatin (Nystatin) 5 ml QID ORAL 01/03/20 09:45 01/10/20 09:44 01/06/20 12:07 Ondansetron HCl (Zofran) 4 mg Q4H PRN IVP Nausea & Vomiting 12/25/19 10:45 01/24/20 10:44 Patient Own Medication (Patient's Own Med) 1 ea BEDTIME OPHTHALM 12/24/19 21:00 01/23/20 20:59 01/05/20 20:10 Patient Own Medication (Patient's Own Med) 1 ea DAILY OPHTHALM 12/25/19 09:00 01/24/20 08:59 01/06/20 08:28 Vancomycin HCl ([facility] pharmacy to dose) 1 ea DAILY PRN MISC Per rx protocol 01/01/20 14:15 01/31/20 14:14 Vancomycin HCl 750 mg/Sodium Chloride 275 ml @ 183.333 mls/hr Q12HR@0300,1500 IVPB 01/07/20 03:00 01/12/20 02:59 Vancomycin HCl 750 mg/Sodium Chloride 275 ml @ 183.333 mls/hr Q12HR@0300,1500 IVPB 01/02/20 03:00 01/07/20 02:59 01/06/20 14:18 Lawrence Warner MD Jan 06, 2020 16:19
[2020-01-06 20:00] VITALS: BP 97/65
[2020-01-06] MEDS: Dyna-Hex 2% Top Sol 2oz TOPIC SCH (21:12)
[2020-01-06] MEDS: COMBIGAN OPHTHALM SCH (21:13)
[2020-01-07] VITALS: BP 101/62
[2020-01-07] MEDS: Vancomycin 750mg/NS 275ml IVPB SCH ×4 (03:12→15:18)
[2020-01-07 04:00] VITALS: BP 96/62
[2020-01-07 05:22] LABS: BASOPHILS % (AUTO) 1.4 % (0.0-2.0); HEMATOCRIT 31.3 % (42.0-52.0); HEMOGLOBIN 10.8 G/DL (14.2-18.0); LYMPHOCYTES % (AUTO) 20.2 % (20.0-45.0); MEAN CORPUSCULAR VOLUME 86 FL (80-99); MONOCYTES % (AUTO) 4.5 % (1.0-10.0); NEUTROPHILS % (AUTO) 64.9 % (45.0-75.0); PLATELET COUNT 250 K/UL (150-450); RED BLOOD COUNT 3.65 M/UL (4.70-6.10); RED CELL DISTRIBUTION WIDTH 11.3 % (11.6-14.8); WHITE BLOOD COUNT 7.5 K/UL (4.8-10.8)
[2020-01-07 05:45] LABS: ALANINE AMINOTRANSFERASE 10 U/L (12-78); ALBUMIN 2.6 G/DL (3.4-5.0); ALBUMIN/GLOBULIN RATIO 0.9 (1.0-2.7); ALKALINE PHOSPHATASE 83 U/L (46-116); ANION GAP 7 mmol/L (5-15); ASPARTATE AMINO TRANSFERASE 12 U/L (15-37); BILIRUBIN,TOTAL 0.2 MG/DL (0.2-1.0); BLOOD UREA NITROGEN 15 mg/dL (7-18); CALCIUM 8.4 MG/DL (8.5-10.1); CARBON DIOXIDE 26 MMOL/L (21-32); CHLORIDE 108 MMOL/L (98-107); SODIUM 141 MMOL/L (136-145)
[2020-01-07 08:01] VITALS: BP 112/72
[2020-01-07] MEDS: Nystatin Susp 500,000 units/5ml ORAL SCH ×4 (08:27→21:12)
[2020-01-07] MEDS: LOTEMAX 0.5% OPHTHALM SCH (08:27)
[2020-01-07 12:00] VITALS: BP 101/68
--- NOTE | 2020-01-07 13:33 | General Progress Note ---
Progress Note Progress Note AVSS Feels well. Tolerating IV antibiotics [place] removed and steristrips applied Peristomal pocket has closed - mucous drainage, slight mucosal retraction I[place]o catheter draining well Labs all stable Imp: Stable with improved peristomal abscess Plan: Replace BCIR catheter in AM - leave indwelling x 2 additional weeks to drainage at home antibiotics per ID anticipate discharge early AM 01/08 Cedrick Juarez MD Jan 07, 2020 13:33
[2020-01-07 16:00] VITALS: BP 98/69
[2020-01-07] MEDS ORDERED: NS 275ml ONE (16:10)
[2020-01-07] MEDS ORDERED: NS Irrig 1000ml ONE (16:10)
[2020-01-07 20:00] VITALS: BP 109/70
[2020-01-07] MEDS: Dyna-Hex 2% Top Sol 2oz TOPIC SCH (21:11)
[2020-01-07] MEDS: COMBIGAN OPHTHALM SCH (21:12)
[2020-01-08] VITALS: BP 95/60
[2020-01-08] MEDS: Vancomycin 750mg/NS 275ml IVPB SCH ×2 (03:33)
[2020-01-08 04:00] VITALS: BP 100/65
[2020-01-08 08:00] VITALS: BP 105/70
[2020-01-08] MEDS: Nystatin Susp 500,000 units/5ml ORAL SCH ×4 (08:18→21:22)
[2020-01-08] MEDS: LOTEMAX 0.5% OPHTHALM SCH (08:18)
--- NOTE | 2020-01-08 09:05 | General Progress Note ---
Progress Note Progress Note AVSS Quevedo Pouch catheter removed and new 28 [place] inserted without difficulty. Mucosa slightly retracted, peristomal wound is clean and starting to granulate I&O satisfactory. Patient is able to care for stoma at home Imp: Improved Plan; D/C PICC line after this afternoon IV antibiotics, then d/c antibiotics To maintain indwelling Quevedo pouch catheter to drainage for additional 2 weeks F/U 01/12; Rx - none Instructions/limitations/supplies discussed/provided discharge in AM 0500 Cedrick Juarez MD Jan 08, 2020 09:05
[2020-01-08 12:00] VITALS: BP 139/77
--- NOTE | 2020-01-08 15:08 | Infectious Diseases Prog Note ---
Assessment/Plan Assessment/Plan ASSESSMENT AND PLAN: 1. coag neg staph peristomal infection, ? infected wound - vancomycin, levofloxacin and flagyl - day # 8 abx combination - discontinue - will change to oral doxycycline for 5 days - clinically slowly improved - monitor labs - management per Dr. Juarez - d/w RN and patient - communicated with Dr. Juarez 2. 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 The patient is status post laparotomy with resection of the Quevedo pouch collar, fistula, and repair of access segment with revision of stoma and access segment in-depth. 3. The patient has a history of multiple abdominal surgeries. 4. History of ulcerative colitis. 5. History of colectomy. 6. History of ileostomy. 7. History of Quevedo continent ileostomy. 8. History of revision. 9. No diabetes or hypertension. 10. Continue treatment per Dr. Juarez and consultants. 11. Allergies to adhesive tape and penicillin. 12. Social history is negative. 13. Family history is noncontributory. 14. MAR was noted. 15. Case discussed with RN. 16. Case discussed with the patient. 17. Case communicated with Dr. Juarez. Subjective Constitutional: Denies: fever HEENT: Denies: congestion Respiratory: Denies: shortness of breath Cardiovascular: Denies: chest pain Gastrointestinal/Abdominal: Denies: nausea, vomiting Genitourinary: Denies: dysuria Neurologic: Denies: headache Psychiatric: Denies: depression Skin: Denies: rash Hematologic: Denies: bleeding Musculoskeletal: Denies: pain Allergies: Coded Allergies: PENICILLINS (Verified Allergy, Intermediate, 01/07/19) ADHESIVE TAPE (Verified Adverse Reaction, Intermediate, Rash, 09/01/19) Objective Last 24 Hour Vital Signs Date Time Temp Pulse Resp B/P (MAP) Pulse Ox O2 Delivery O2 Flow Rate FiO2 01/08/20 12:00 98.2 89 18 139/77 (97) 98 01/08/20 09:00 Room Air 01/08/20 08:00 98.0 86 18 105/70 (82) 97 01/08/20 04:00 98.2 76 20 100/65 (77) 97 01/08/20 00:00 98.1 81 20 95/60 (72) 97 01/07/20 20:25 Room Air 01/07/20 20:00 98.2 86 20 109/70 (83) 97 01/07/20 16:00 98.4 80 21 98/69 (79) 97 Height (Feet): 5 Height (Inches): 9.00 Weight (Pounds): 158 General Appearance: no acute distress HEENT: normocephalic, atraumatic, anicteric Respiratory/Chest: lungs clear, normal breath sounds, no respiratory distress Cardiovascular: normal rate, regular rhythm, no gallop/murmur, no JVD Abdomen: normal bowel sounds, soft, non tender, no organomegaly, non distended Genitourinary: other - no izquierdo Extremities: no cyanosis Skin: no rash Neurologic/Psychiatric: tool supervisor II-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 Lungs and pleural spaces are otherwise clear. The heart size is normal. No significant change Impression: No acute process Microbiology Date/Time Source Procedure Growth Status 12/31/19 08:45 Drainage Fluid Gram Stain - Final Complete 12/31/19 08:45 Wound Culture - Final Staphylococcus Sp Coag Neg Complete 12/25/19 08:48 Abdominal Fluid Gram Stain - Final Complete 12/25/19 08:48 Aerobic Culture - Final Staphylococcus Sp Coag Neg Complete 12/25/19 08:48 Abdominal Fluid Anaerobic Culture - Final NO ANAEROBES ISOLATED Complete 12/24/19 10:35 Nasopharynx SARS-CoV-2 RdRp Gene Assay - Final Complete Labs Test 01/07/20 04:30 White Blood Count 7.5 K/UL (4.8-10.8) Red Blood Count 3.65 M/UL (4.70-6.10) Hemoglobin 10.8 G/DL (14.2-18.0) Hematocrit 31.3 % (42.0-52.0) Mean Corpuscular Volume 86 FL (80-99) Mean Corpuscular Hemoglobin 29.5 PG (27.0-31.0) Mean Corpuscular Hemoglobin Concent 34.4 G/DL (32.0-36.0) Red Cell Distribution Width 11.3 % (11.6-14.8) Platelet Count 250 K/UL (150-450) Mean Platelet Volume 5.8 FL (6.5-10.1) Neutrophils (%) (Auto) 64.9 % (45.0-75.0) Lymphocytes (%) (Auto) 20.2 % (20.0-45.0) Monocytes (%) (Auto) 4.5 % (1.0-10.0) Eosinophils (%) (Auto) 9.0 % (0.0-3.0) Basophils (%) (Auto) 1.4 % (0.0-2.0) Sodium Level 141 MMOL/L (136-145) Potassium Level 4.0 MMOL/L (3.5-5.1) Chloride Level 108 MMOL/L (98-107) Carbon Dioxide Level 26 MMOL/L (21-32) Anion Gap 7 mmol/L (5-15) Blood Urea Nitrogen 15 mg/dL (7-18) Creatinine 1.0 MG/DL (0.55-1.30) Estimat Glomerular Filtration Rate > 60 mL/min (>60) Glucose Level 89 MG/DL (74-106) Calcium Level 8.4 MG/DL (8.5-10.1) Total Bilirubin 0.2 MG/DL (0.2-1.0) Aspartate Amino Transf (AST/SGOT) 12 U/L (15-37) Alanine Aminotransferase (ALT/SGPT) 10 U/L (12-78) Alkaline Phosphatase 83 U/L (46-116) Total Protein 5.6 G/DL (6.4-8.2) Albumin 2.6 G/DL (3.4-5.0) Globulin 3.0 g/dL Albumin/Globulin Ratio 0.9 (1.0-2.7) Current Medications Medications (Trade) Dose Ordered Sig/Nikita Route PRN Reason Start Time Stop Time Status Last Admin Dose Admin Acetaminophen (Tylenol) 650 mg Q4H PRN ORAL Mild pain or temp over 100.2 12/25/19 10:45 01/24/20 10:44 Acetaminophen/ Hydrocodone Bitart ([place] 5/325) 1 tab Q4H PRN ORAL Moderate Pain (Pain Scale 4-6) 01/04/20 10:00 01/11/20 09:59 Alteplase, Recombinant (Cathflo) 2 mg PRN PRN INJ for line flush 01/04/20 20:00 04/03/20 19:59 01/04/20 22:10 Ascorbic Acid (Vitamin C) 500 mg NEEDED PRN ORAL Constipation 01/03/20 09:30 02/02/20 09:29 01/06/20 08:28 Chlorhexidine Gluconate (Amelie-Hex 2%) 1 applic DAILY@1999 TOPIC 12/24/19 20:00 03/23/20 19:59 01/07/20 21:11 Diphenhydramine HCl (Benadryl) 50 mg Q4H PRN IVP Itching/Pruritis 12/26/19 08:44 01/25/20 08:43 Doxycycline Monohydrate (Doxycycline Monohydrate) 100 mg EVERY 12 HOURS ORAL 01/08/20 21:00 01/15/20 20:59 Naloxone HCl (Narcan) 0.1 mg Q1M PRN IVP RR<10/min OR SBP<90 mmHg 12/26/19 08:39 03/25/20 08:37 Nystatin (Nystatin) 5 ml QID ORAL 01/03/20 09:45 01/10/20 09:44 01/08/20 12:30 Ondansetron HCl (Zofran) 4 mg Q4H PRN IVP Nausea & Vomiting 12/25/19 10:45 01/24/20 10:44 Patient Own Medication (Patient's Own Med) 1 ea BEDTIME OPHTHALM 12/24/19 21:00 01/23/20 20:59 01/07/20 21:12 Patient Own Medication (Patient's Own Med) 1 ea DAILY OPHTHALM 12/25/19 09:00 01/24/20 08:59 01/08/20 08:18 Lawrence Warner MD Jan 08, 2020 15:08
[2020-01-08 16:00] VITALS: BP 103/67
[2020-01-08] MEDS ORDERED: Doxycycline Monohydrate 100mg ORAL SCH ×2 (17:00→21:00)
[2020-01-08] MEDS ORDERED: NS Irrig 1000ml ONE (17:37)
[2020-01-08] MEDS ORDERED: NS 275ml ONE (17:37)
[2020-01-08] MEDS ORDERED: Tubing IV Secondary IV ONE (17:37)
[2020-01-08 20:00] VITALS: BP 104/67
[2020-01-08] MEDS: Dyna-Hex 2% Top Sol 2oz TOPIC SCH (20:00)
[2020-01-08] MEDS: COMBIGAN OPHTHALM SCH (21:22)
[2020-01-09 04:00] VITALS: BP 132/85
[2020-01-09] MEDS ORDERED: Doxycycline Monohydrate 100mg ORAL SCH (05:00)
--- NOTE | 2020-01-11 16:27 | Discharge Summary ---
Discharge Summary Discharge Summary _ DATE OF ADMISSION: 12/24/2019 DATE OF DISCHARGE: 01/09/2020 DISCHARGED BY: Dr. Cedrick Juarez CONSULTANTS: Dr. 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 The patient has a past history of ulcerative colitis and has undergone multiple abdominal operations in the past including total colectomy, ileoanal J-pouch, resection of failed J-pouch with Quevedo pouch. [place] and all will be listed at the end of this dictation. The most recent surgery was here at [facility] January 08, 2019 involving laparotomy with revision of his Quevedo continent ileostomy pouch valve together with revision of the stoma and access segment due to history of incontinence and stoma stricture. The patient developed difficulties following his surgery in December 2018. Within several months, he had recurring episodes of peristomal infection with pain, swelling and erythema, tenderness, and induration. He was treated with antibiotics, but the episodes recurred. He was hospitalized at the beginning of August 2019 and pouch endoscopy revealed a fistula at the base of the nipple valve. At his surgery in December 2018, there were heavy silk sutures in this area and inflammation, all of which were removed at that time. It was felt that he had a fistula from the evaluation in August and he was treated with medical management including mesalamine suspension flushed into the pouch every night at bedtime with the medications staying all night until he intubated the following morning as well as a full courses of Xifaxan (rifaximin). The fistula and symptoms, peristomal infection, inflammation kept recurring and his stoma was becoming stenotic. He was treated with Cipro and clindamycin, which would resolve the episode within a week or 2 or less, he would require another course of antibiotics. He is being admitted to undergo definitive pouch reconstruction with possible formation of a new valve and stoma with relocation of the stoma with preservation of his Quevedo pouch which is known to have a large capacity. BRIEF HOSPITAL COURSE: Patient was admitted. PICC line was inserted. He was started on bowel prep and IV hydration. He was given preop IV antibiotics the night prior to surgery. He was given subcutaneous heparin. On 12/25/2019, he underwent laparotomy with resection of Quevedo pouch collar, fistula and repair of access segment with revision of stoma and access segment in depth. The patient tolerated procedure well and left the operating room in good condition. Postop day #1. Patient was comfortable with MS TOP CLEANER. Chest is clear. He was encouraged to ambulate twice daily. He was given NS IV fluid to improve urine output. He was continued on n.p.o., continuous drainage of Quevedo pouch. Postop day #2. Patient is ambulating well with no much pain. Stoma pink, abdomen soft and flat. Incision clean. He was continued on n.p.o. Basal infusion of TOP CLEANER was discontinued. He was given magnesium infusions. Postop day #3. Patient was doing well with demand dosing of TOP CLEANER. Abdomen was soft, incision clean, stoma pink. He was continued on n.p.o. Maintain continuous drainage of Quevedo pouch. Postop day #4. Patient was ambulating well. There was bleeding on the lateral corner of the stoma. Surgicel was applied. He was continued on n.p.o. He was given Levaquin and clindamycin. Postop day #5. Patient was not using TOP CLEANER. Superior stoma separation with drainage. Discharge was sent to lab for C&S. He was continued on antibiotics. TOP CLEANER was discontinued. Trevino catheter removed. He was started on clear liquid diet. Postop day #6. Patient tolerated clear liquid diet. He complained of pain on the left upper arm above the PICC line. There was still some purulent drainage on the superior peristomal. Another C&S was sent. He was continued on IV antibiotics. Diet was advanced to full liquid diet. Postop day #7. Patient was tolerating full liquid diet. Still with purulent mucus draining from superior border of stoma without cellulitis. Continued on Levaquin and clindamycin. Patient was continued on full liquid diet. ID was consulted. Postop day #8. Patient was tolerating full liquid diet and supplements. Abdomen was soft, incision clean, peristomal skin normal, small cavity superior margin, decreased drainage. Patient on Levaquin, Flagyl and vancomycin. Postop day #9. Patient is tolerating full liquid diet. Has mild thrush. He was given fluconazole p.o. and nystatin p.o. IV antibiotics were continued. Postop day #10. Peristomal drainage continued but more serous and less purulent. No cellulitis. Abdomen was soft, incision clean. He was continued on Levaquin, Flagyl and Vanco. Continue wound care. Patient was tolerating BC IR low residue diet. Postop day #11. Vital signs stable. Doing well with p.o. intake. Still on IV antibiotics. Peristomal infection improving. Postop day #12. Patient is tolerating IV antibiotics. Stoma wound still draining small amounts but no surrounding cellulitis or erythema. Abdomen was soft. Some claudia removed. Postop day #13. Patient is feeling well and tolerating IV antibiotics. All claudia removed and Steri-Strips were applied. Peristomal pocket has closed. Continue antibiotics. Postop day #14. Quevedo pouch catheter removed and a new 28 Trevino inserted without difficulty. Because slightly retracted, peristomal wound is clean and starting to granulate. PICC line was discontinued. Postop day #15. Maintain indwelling Quevedo pouch catheter to drainage for additional 2 weeks. Instructions/limitations/supplies were discussed and provided. Patient was cleared to take care of stoma at home. FINAL DIAGNOSES: 1. Malfunctioning Quevedo continent ileostomy with fistula to access segment with recurring peristomal infection. 2. History of ulcerative colitis. 3. STATUS POST MULTIPLE ABDOMINAL OPERATIONS: 3.1. Total colectomy with ileoanal J-pouch in 1989. 3.2. Ileostomy in 2013. 3.3. Quevedo continent ileostomy and resection of failed ileoanal J-pouch with abdominal-perineal proctectomy, November 2014 in [place]. 3.4. Revision of Quevedo pouch valve stoma and access segment, April 12, 2018 in [place]. 3.5. Laparotomy with revision of Quevedo continent ileostomy valve stoma and access segment, January 08, 2019. 4. Peristomal infection OPERATION PERFORMED: Laparotomy with resection of Quevedo pouch collar, fistula and repair of access segment with revision of stoma and access segment in depth. DISPOSITION: Patient was discharged home. DISCHARGE MEDICATIONS: Refer to Discharge Medication List. DISCHARGE INSTRUCTIONS: Follow-up on 01/13/2020. I have been assigned to complete a discharge summary on this account, I was not involved with the patient's management.--JACK Gomez Jacqueline Robles NP Jan 11, 2020 16:27
== END 2020-01-09 05:45 | disposition home or self-care (01) | DRG 330 ==
LOC: 3E 09:26
PROC: 02HV33Z Insertion of Infusion Device into Superior Vena Cava, Percutaneous Approach (ICD-10-PCS; principal; 2019-12-24)
PROC: B518ZZA Fluoroscopy of Superior Vena Cava, Guidance (ICD-10-PCS; principal; 2019-12-24)
PROC: 0WQFXZ2 Repair Abdominal Wall, Stoma, External Approach (ICD-10-PCS; 2019-12-25)
PROC: 0DBB0ZZ Excision of Ileum, Open Approach (ICD-10-PCS; 2019-12-25)
DX: K94.13 Enterostomy malfunction (principal); K56.7 Ileus, unspecified; K63.2 Fistula of intestine; K94.12 Enterostomy infection; E86.1 Hypovolemia; B95.7 Other staphylococcus as the cause of diseases classified elsewhere
CPT/HCPCS: 36415; 36573; 71045; 76937; 80048; 80053; 80202; 81001; 82607; 82728; 82746; 82962; 83540; 83550; 83735; 84100; 85025; 85610; 85730; 86850; 86900; 86901; 87070; 87075; 87181; 87205; 93005; 93971; 94003; 94150; J2250; J2710; J7030; S0077; U0002